=== PATIENT | female | born 1960 | race Caucasian/White ===

== ENCOUNTER 2021-04-24 19:43 | Inpatient (IN) | payer MEDICARE ==
[2021-04-24 20:21] LABS: BASOPHIL % 0.2 % (0.0-0.4); Basophil (Absolute #) 0.01 (0-0.4); Eosinophil % 1.7 % (0.00-5.0); Eosinophil (Absolute #) 0.08 (0-0.5); Hematocrit 40.2 % (35-47); Hemoglobin 13.2 gm/dl (12.0-16.0); Lymphocyte (Absolute #) 0.68 (1.0-4.6); Lymphocytes % 14.8 % (24.0-44.0); Mean Corpuscular Hemoglobin 31.2 pg (26-32); Mean Corpuscular Hgb Concent. 32.8 g/dl (32-36); Mean Platelet Volume 9.9 fl (7.5-11.0); Monocyte (Absolute #) 0.44 (0.0-1.3); Monocytes % 9.5 % (0.0-12.0); Neutrophil % 73.8 % (36.0-66.0); Platelet Count 137 K/mm3 (150-450); Red Blood Count 4.23 M/mm3 (4.1-5.4); Red Cell Distribution Width 14.4 % (11.5-14.0); White Blood Count 4.6 K/mm3 (4.0-10.5)
[2021-04-24 20:46] LABS: ALBUMIN 4.1 g/dL (3.5-5.0); ALKALINE PHOSPHATASE 66 U/L (38-126); BLOOD UREA NITROGEN 11 mg/dL (7-17); CHLORIDE 98 mmol/L (98-107); Calcium 8.6 mg/dL (8.4-10.2); Carbon Dioxide 26 mmol/L (22-30); Creatinine 1 0.52 mg/dL (0.52-1.04); EST GLOMERULAR FILTRATION RATE > 60.0 ML/MIN; Glucose 116 mg/dL (74-106); NT PRO BNP 273 pg/mL (0-900); Potassium 3.7 mmol/L (3.5-5.1); SGOT/AST 49 U/L (14-36); SGPT/ALT 14 U/L (0-35); Total Protein 7.2 g/dL (6.3-8.2)
[2021-04-24 21:06] LABS: SODIUM 131 mmol/L (137-145)
[2021-04-24 21:13] LABS: ANION GAP 10.7 MEQ/L (5-15)
[2021-04-24 21:35] LABS: INR 1.14 (0.8-3.0); PROTIME 13.4 SECONDS (9.4-12.5)
[2021-04-24 21:37] LABS: PTT 30.9 SECONDS (25.1-36.5)
--- NOTE | 2021-04-24 21:59 | ERPHSYRPT ---
- History of Present Illness Source: patient Exam Limitations: no limitations Patient Subjective Stated Complaint: I am short of breath since last night but worse today and I have a headache I can't get rid of. Triage Nursing Assessment: Pt c/o sob since 8pm last night and it has gotten slightly worse today. Pt also has a headache that she woke up with this morning and it hasn't let up since. Pt notices being more fatigued the last couple of days especially today. Pt's dad was positive for covid on Thursday and hospitalized and got released today. She lives with her dad. Pt has slight non prod cough. Lung camejo diminished throughout ant and post and tight. Physician History: 61 yo wf w cough/dyspnea/[place] wo fever/N/V/D. Pt's father has CV19, and pt has not been vaccinated. She smokes 1 ppd. Sats in mid-high 90's upon arrival. Timing/Duration: yesterday Cough Quality/Degree: dry cough Possible Cause: occasional episodes Modifying Factors: Improves With: coughing Associated Symptoms: cough, shortness of breath, No fever, No chills, No chest pain/soreness, No dizziness, No earache, No facial pain, No headache, No lightheadedness, No muscle aches, No nasal congestion, No nasal drainage, No sinus infection, No sore throat, No wheezing Allergies/Adverse Reactions: morphine Allergy (Severe, Verified 04/24/21 20:01) Vomiting Penicillins Allergy (Severe, Verified 04/24/21 20:01) convulsions Home Medications: Levothyroxine Sodium 25 Mcg [Synthroid 25 Mcg] 25 mcg PO DAILY 06/06/16 [History] Methadone HCl 5 mg PO UD 04/24/21 [History] Tizanidine HCl 2 mg PO TID 04/24/21 [History] Hx Tetanus, Diphtheria Vaccination/Date Given: Yes Hx Influenza Vaccination/Date Given: No Hx Pneumococcal Vaccination/Date Given: No Immunizations Up to Date: Yes Travel Risk - International Travel Have you traveled outside of the country in past 3 weeks: No - Coronavirus Screening Symptoms: Shortness of Breath, Headaches/Body Aches/Fatigue Close contact with a COVID-19 positive Pt in past 14-21 Days: Yes - Vaccine Status Have you recieved a Covid-19 vaccination: No - Review of Systems Constitutional: No Symptoms, Fatigue, Lethargy, Malaise Eyes: No Symptoms Ears, Nose, & Throat: No Symptoms Respiratory: Cough, Dyspnea Cardiac: No Symptoms Abdominal/Gastrointestinal: No Symptoms Genitourinary Symptoms: No Symptoms Musculoskeletal: No Symptoms Skin: No Symptoms Neurological: No Symptoms Psychological: No Symptoms Endocrine: No Symptoms Hematologic/Lymphatic: No Symptoms Immunological/Allergic: Pollen Allergy - Past Medical History Pertinent Past Medical History: Yes Neurological History: Migraines ENT History: No Pertinent History Cardiac History: No Pertinent History Respiratory History: COPD Endocrine Medical History: Hypothyroidism Musculoskeletal History: No Pertinent History GI Medical History: No Pertinent History History: No Pertinent History Psycho-Social History: No Pertinent History Female Reproductive Disorders: Breast Cancer Other Medical History: chronic hip problem since 3 years of age - chronic back - Past Surgical History Past Surgical History: Yes Neuro Surgical History: No Pertinent History Cardiac: No Pertinent History Respiratory: No Pertinent History Gastrointestinal: Hemorrhoidectomy Genitourinary: No Pertinent History Musculoskeletal: Joint Replacement, Other Female Surgical History: Hysterectomy, Lumpectomy Other Surgical History: 12 hip surgeries. spine surgery - Social History Smoking Status: Current every day smoker How long have you smoked: 30 yrs Exposure to second hand smoke: Yes Drug Use: none Patient Lives Alone: No Significant Family History: no pertinent family hx - Female History Hx Now: No - Nursing Vital Signs Nursing Vital Signs: Initial Vital Signs Temperature 98.3 F 04/24/21 19:44 Pulse Rate 95 H 04/24/21 19:44 Respiratory Rate 24 04/24/21 19:44 Blood Pressure 179/89 04/24/21 19:44 O2 Sat by Pulse Oximetry 90 L 04/24/21 19:44 Pain Scale Pain Intensity 0 Low sats - Physical Exam General Appearance: mild distress Eye Exam: PERRL/EOMI, eyes nml inspection Ears, Nose, Throat Exam: normal ENT inspection, TMs normal, pharynx normal, moist mucous membranes, dry mucous membranes Neck Exam: normal inspection, non-tender, No supple, No full range of motion, No meningismus, No mass, No Brudzinski, No Kernig's Respiratory Exam: respiratory distress (Mild), airway intact, wheezing (All lung) Cardiovascular Exam: regular rate/rhythm, normal heart sounds, normal peripheral pulses, No murmur Gastrointestinal/Abdomen Exam: soft, normal bowel sounds Back Exam: normal inspection, normal range of motion, No CVA tenderness Extremity Exam: normal inspection, normal range of motion Neurologic Exam: alert, 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, cooperative, saw superintendent II-XII nml as tested, normal mood/affect, nml cerebellar function, nml station & gait, sensation nml, No motor deficits, No sensory deficit Skin Exam: normal color Lymphatic Exam: adenopathy SpO2 Interpretation: borderline oxygenation SpO2: 93 O2 Delivery: Nasal Cannula - Course Nursing assessment & vital signs reviewed: Yes - Radiology Exams Chest X-ray Interpretation: Interpreted by me (COPD) Ordered Tests: Active Orders 24 hr Category Date Time Status Code Status Order ROUTINE Care 04/24/21 23:42 Completed EKG-ER Only STAT Care 04/24/21 20:05 Completed IV Care Q6H Care 04/24/21 23:42 Completed Intake and Output Q12H Care 04/24/21 23:42 Completed Isolation, Initiate & Maintain Q6H Care 04/24/21 23:[address] in Observation ROUTINE Care 04/24/21 23:42 Completed Vital Signs Q4H Care 04/24/21 23:42 Completed House Regular Diet Diet 04/24/21 Breakfast Completed CHEST 1 VIEW (PORTABLE) Stat Exams 04/24/21 20:06 Taken CBC W DIFF Stat Lab 04/24/21 20:05 Completed CMP Stat Lab 04/24/21 20:05 Completed Lactic Acid Stat Lab 04/24/21 20:14 Completed NT PRO BNP Stat Lab 04/24/21 20:05 Completed PROTIME WITH INR Stat Lab 04/24/21 20:05 Completed PTT Stat Lab 04/24/21 20:05 Completed TROPONIN Q3H Lab 04/24/21 20:15 Completed TROPONIN Q3H Lab 04/24/21 22:50 Completed Respiratory Therapy Consult ROUTINE RT 04/24/21 23:42 Completed Transfer Order Routine Transfer 04/24/21 Ordered Medication Summary Discontinued Medications Generic Name Dose Route Start Last Admin Trade Name Freq PRN Reason Stop Dose Admin Acetaminophen 650 mg 04/24/21 23:42 Tylenol 325 Mg PO 05/24/21 23:41 Q4H PRN PRN PAIN AND/OR FEVER Albuterol Sulfate 4 puff 04/25/21 07:00 Ventolin Common Canister IH 05/25/21 06:59 QIDRT CARINA Dexamethasone Sodium Phosphate 10 mg 04/24/21 23:41 04/24/21 23:47 Decadron 10mg Inj. IV 04/24/21 23:42 10 mg STAT ONE Administration Dexamethasone Sodium Phosphate Confirm 04/24/21 23:46 Decadron 10mg Inj. Administered 04/24/21 23:47 Dose 10 mg .ROUTE .STK-MED ONE Dexamethasone Sodium Phosphate 6 mg 04/25/21 10:00 Decadron 4 Mg Inj IV 05/25/21 09:59 DAILY [facility] Enoxaparin Sodium 40 mg 04/25/21 10:00 Enoxaparin Sodium SQ 05/25/21 09:59 DAILY [facility] Fentanyl 50 mcg 04/24/21 23:45 Duragesic 50mcg Patch TD 04/29/21 23:44 Q72H [facility] Remdesivir 100 mg/ Sodium 100 mls @ 100 mls/hr 04/25/21 23:48 Chloride IV 04/29/21 00:47 Q24H [facility] Remdesivir 200 mg/ Sodium 250 mls @ 125 mls/hr 04/24/21 23:48 Chloride IV 04/25/21 01:47 ONCE ONE Sodium Chloride 1,000 mls @ 100 mls/hr 04/24/21 23:45 Sodium Chloride 0.9% 1000 Ml IV 05/24/21 23:44 .Q10H [facility] Nicotine 21 mg 04/24/21 23:46 Nicoderm Cq 21 Mg TOP 04/24/21 23:47 STAT ONE Ondansetron HCl 4 mg 04/24/21 23:42 Zofran 4 Mg/2 Ml Vial IV 05/24/21 23:41 Q6H PRN PRN NAUSEA/VOMITING Pantoprazole Sodium 40 mg 04/25/21 10:00 Protonix 40 Mg Iv IV 05/25/21 09:59 Q24H10 [facility] Lab/Rad Data: Laboratory Result Diagrams 04/24/21 20:05 04/24/21 20:05 Laboratory Results 04/24/21 04/24/21 04/24/21 Range/Units 22:50 22:29 20:15 WBC (4.0-10.5) K/mm3 RBC (4.1-5.4) M/mm3 Hgb (12.0-16.0) gm/dl Hct (35-47) % MCV (78-100) fl MCH (26-32) pg MCHC (32-36) g/dl RDW (11.5-14.0) % Plt Count (150-450) K/mm3 MPV (7.5-11.0) fl Gran % (36.0-66.0) % Eos # (Auto) (0-0.5) Absolute Lymphs (auto) (1.0-4.6) Absolute Monos (auto) (0.0-1.3) Lymphocytes % (24.0-44.0) % Monocytes % (0.0-12.0) % Eosinophils % (0.00-5.0) % Basophils % (0.0-0.4) % Absolute Granulocytes (1.4-6.9) Basophils # (0-0.4) PT (9.4-12.5) SECONDS INR (0.8-3.0) APTT (25.1-36.5) SECONDS Sodium (137-145) mmol/L Potassium (3.5-5.1) mmol/L Chloride (98-107) mmol/L Carbon Dioxide (22-30) mmol/L Anion Gap (5-15) MEQ/L BUN (7-17) mg/dL Creatinine (0.52-1.04) mg/dL Estimated GFR ML/MIN Glucose (74-106) mg/dL Lactic Acid (0.4-2.0) Calcium (8.4-10.2) mg/dL Total Bilirubin (0.2-1.3) mg/dL AST (14-36) U/L ALT (0-35) U/L Alkaline Phosphatase (38-126) U/L Troponin I < 0.012 < 0.012 (0.000-0.034) ng/mL NT-Pro-B Natriuret Pep (0-900) pg/mL Serum Total Protein (6.3-8.2) g/dL Albumin (3.5-5.0) g/dL SARS-CoV-2 (PCR) POSITIVE A (NEGATIVE) Slides for Path Review 04/24/21 04/24/21 04/24/21 Range/Units 20:14 20:05 20:05 WBC (4.0-10.5) K/mm3 RBC (4.1-5.4) M/mm3 Hgb (12.0-16.0) gm/dl Hct (35-47) % MCV (78-100) fl MCH (26-32) pg MCHC (32-36) g/dl RDW (11.5-14.0) % Plt Count (150-450) K/mm3 MPV (7.5-11.0) fl Gran % (36.0-66.0) % Eos # (Auto) (0-0.5) Absolute Lymphs (auto) (1.0-4.6) Absolute Monos (auto) (0.0-1.3) Lymphocytes % (24.0-44.0) % Monocytes % (0.0-12.0) % Eosinophils % (0.00-5.0) % Basophils % (0.0-0.4) % Absolute Granulocytes (1.4-6.9) Basophils # (0-0.4) PT 13.4 H (9.4-12.5) SECONDS INR 1.14 (0.8-3.0) APTT 30.9 (25.1-36.5) SECONDS Sodium 131 L (137-145) mmol/L Potassium 3.7 (3.5-5.1) mmol/L Chloride 98 (98-107) mmol/L Carbon Dioxide 26 (22-30) mmol/L Anion Gap 10.7 (5-15) MEQ/L BUN 11 (7-17) mg/dL Creatinine 0.52 (0.52-1.04) mg/dL Estimated GFR > 60.0 ML/MIN Glucose 116 H (74-106) mg/dL Lactic Acid 1.5 (0.4-2.0) Calcium 8.6 (8.4-10.2) mg/dL Total Bilirubin 0.90 (0.2-1.3) mg/dL AST 49 H (14-36) U/L ALT 14 (0-35) U/L Alkaline Phosphatase 66 (38-126) U/L Troponin I (0.000-0.034) ng/mL NT-Pro-B Natriuret Pep 273 (0-900) pg/mL Serum Total Protein 7.2 (6.3-8.2) g/dL Albumin 4.1 (3.5-5.0) g/dL SARS-CoV-2 (PCR) (NEGATIVE) Slides for Path Review 04/24/21 Range/Units 20:05 WBC 4.6 (4.0-10.5) K/mm3 RBC 4.23 (4.1-5.4) M/mm3 Hgb 13.2 (12.0-16.0) gm/dl Hct 40.2 (35-47) % MCV 95.0 (78-100) fl MCH 31.2 (26-32) pg MCHC 32.8 (32-36) g/dl RDW 14.4 H (11.5-14.0) % Plt Count 137 L (150-450) K/mm3 MPV 9.9 (7.5-11.0) fl Gran % 73.8 H (36.0-66.0) % Eos # (Auto) 0.08 (0-0.5) Absolute Lymphs (auto) 0.68 L (1.0-4.6) Absolute Monos (auto) 0.44 (0.0-1.3) Lymphocytes % 14.8 L (24.0-44.0) % Monocytes % 9.5 (0.0-12.0) % Eosinophils % 1.7 (0.00-5.0) % Basophils % 0.2 (0.0-0.4) % Absolute Granulocytes 3.40 (1.4-6.9) Basophils # 0.01 (0-0.4) PT (9.4-12.5) SECONDS INR (0.8-3.0) APTT (25.1-36.5) SECONDS Sodium (137-145) mmol/L Potassium (3.5-5.1) mmol/L Chloride (98-107) mmol/L Carbon Dioxide (22-30) mmol/L Anion Gap (5-15) MEQ/L BUN (7-17) mg/dL Creatinine (0.52-1.04) mg/dL Estimated GFR ML/MIN Glucose (74-106) mg/dL Lactic Acid (0.4-2.0) Calcium (8.4-10.2) mg/dL Total Bilirubin (0.2-1.3) mg/dL AST (14-36) U/L ALT (0-35) U/L Alkaline Phosphatase (38-126) U/L Troponin I (0.000-0.034) ng/mL NT-Pro-B Natriuret Pep (0-900) pg/mL Serum Total Protein (6.3-8.2) g/dL Albumin (3.5-5.0) g/dL SARS-CoV-2 (PCR) (NEGATIVE) Slides for Path Review YES - Progress Progress Note: 04/24/21 23:52 10mg IV Decadron Admit per Dr. Medina Fentanyl patch ordered since pt taking 5mg po Methadone five times a day Nicotine patch ordered Counseled pt/family regarding: lab results, diagnosis, need for follow-up, rad results - Departure Departure Disposition: Observation Clinical Impression: COVID-19 Condition: Stable Critical Care Time: No Referrals: DISHA MACKEY JR [Primary Care Provider] -
[2021-04-24 23:28] LABS: Slide Review 1 YES
[2021-04-24] MEDS ORDERED: DECADRON 10MG INJ. IV ONE (23:41)
[2021-04-24] MEDS ORDERED: Zofran 4 MG/2 ML VIAL IV PRN (23:42)
[2021-04-24] MEDS ORDERED: TYLENOL 325 MG PO PRN (23:42)
[2021-04-24] MEDS ORDERED: Sodium Chloride 0.9% 1000 ML 1,000 ML IV SCH (23:45)
[2021-04-24] MEDS ORDERED: Duragesic 50MCG Patch TD SCH (23:45)
[2021-04-24] MEDS ORDERED: Nicoderm CQ 21 MG TOP ONE (23:46)
[2021-04-24] MEDS ORDERED: DECADRON 10MG INJ. ONE (23:46)
[2021-04-24] MEDS ORDERED: REMDESIVIR 200 MG in Sodium Chloride 0.9% 250 ML 250 ML IV ONE (23:48)
[2021-04-25] MEDS ORDERED: Zofran 4 MG/2 ML VIAL IV PRN (00:08)
[2021-04-25] MEDS ORDERED: TYLENOL 325 MG PO PRN (00:08)
[2021-04-25] MEDS ORDERED: Duragesic 50MCG Patch TD SCH (00:15)
[2021-04-25] MEDS: Sodium Chloride 0.9% 1000 ML 1,000 ML IV SCH ×2 (01:00→20:54)
[2021-04-25] MEDS ORDERED: OLUMIANT PO ONE (02:24)
[2021-04-25] MEDS ORDERED: Ativan 2 MG/1 ML VIAL IV PRN (02:45)
[2021-04-25] MEDS ORDERED: VENTOLIN COMMON CANISTER IH SCH (07:00)
[2021-04-25] MEDS: VENTOLIN COMMON CANISTER IH SCH ×4 (07:28→19:50)
[2021-04-25] MEDS ORDERED: DOLOPHINE 10MG Tablet PO SCH (09:00)
--- NOTE | 2021-04-25 09:07 | XRAY ---
Indication: Cough. Comparison: May 12, 2019. Portable chest again demonstrates COPD, tiny right upper lobe calcified granuloma, and bilateral nipple shadows. No focal infiltrate, consolidation, or large effusion. Heart and mediastinal structures within normal limits. Bony thorax intact again with mild osteopenia and degenerative changes. Impression: Nonacute chest with chronic features.
--- NOTE | 2021-04-25 09:31 | HP ---
CHIEF COMPLAINT: "I can't breathe". HISTORY OF PRESENT ILLNESS: The patient is a 61 y/o WF. 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 He did very well because he had 1 vaccine. However, she has gotten worse since 8 o'clock the night of admission. Can barely breathe. Came to the Emergency Room with headaches, fatigue, just feeling bad all over. No nausea. No vomiting. She does smoke a couple packs a day. She had a low-grade fever. On arrival, she as in the high 90's, but it progressively went down during the night. She has frequent dry cough. PAST MEDICAL HISTORY: Hysterectomy, hemorrhoidectomy, 5 surgeries to I believe the left hip, and she had a mastectomy for breast cancer years ago. Neurological history - Migraines. Cardiac history - None. Endocrine - Hypothyroidism. Musculoskeletal - Again, Legg-Perthes disease perhaps. 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 She also has chronic back pain probably related to the hip in some way. HOME MEDICATIONS: Methadone 5 mg 5 times a day for multiple surgeries to the hip from dysplasia of the hip, Synthroid 25 q d, and Tizanidine 2 mg tid. ALLERGIES: MORPHINE, PENICILLIN. 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 REVIEW OF SYSTEMS: CONSTITUTIONAL: Has fatigue, lethargy, malaise. HEENT: No sore throat. ABDOMEN: No nausea or vomiting. EXTREMITIES: Just achiness. PHYSICAL EXAMINATION: Temperature 98, pulse 80, respirations 20, BP 160/80, O2 90% on 4 liters. HEENT: Pupils equal and reactive to light. Slightly hoarse. CHEST: Crackles and rales bilateral. CVS: Regular rate. No murmurs or gallops. ABDOMEN: Soft. No tenderness or organomegaly. EXTREMITIES: Very thin. No cyanosis. No edema. LABORATORY WORK: Lactic acid 1.5, WBC 4.6, potassium 3.7. Chest x-ray shows bilateral pneumonia. IMPRESSION: 1. PATIENT HAS COVID-19 PNEUMONIA. 2. SHE HAS CONGENITAL DISORDER OF THE HIP AND BACK PAIN TREATED WITH METHADONE, NOT AN ADDICT, BUT USED FOR PAIN PURPOSES FOR SEVERAL YEARS. 3. HISTORY OF BREAST CANCER AND HYPOTHYROIDISM. PLAN: Patient will be treated with anticoagulation, Remdesivir, Decadron, and antibodies. Prognosis fair.
[2021-04-25] MEDS: DOLOPHINE 10MG Tablet PO SCH ×4 (09:40→22:27)
[2021-04-25] MEDS: SYNTHROID 25 MCG PO SCH (09:41)
[2021-04-25] MEDS: OLUMIANT PO SCH (09:41)
[2021-04-25] MEDS: PROTONIX 40 MG IV IV SCH (09:41)
[2021-04-25] MEDS: DECADRON 10MG INJ. IV SCH (09:41)
[2021-04-25] MEDS: Zanaflex 4 MG PO SCH ×3 (09:42→22:28)
[2021-04-25] MEDS: ENOXAPARIN SODIUM SQ SCH (09:42)
[2021-04-25] MEDS ORDERED: Decadron 4 MG INJ IV SCH (10:00)
[2021-04-25] MEDS ORDERED: TIZANIDINE HCL 2 MG PO SCH (10:00)
[2021-04-25] MEDS ORDERED: PROTONIX 40 MG IV IV SCH (10:00)
[2021-04-25] MEDS ORDERED: ENOXAPARIN SODIUM SQ SCH (10:00)
[2021-04-25] MEDS: Nicoderm CQ 21 MG TOP SCH (22:28)
[2021-04-25] MEDS: REMDESIVIR 100 MG in Sodium Chloride 0.9% 100 ML BAG 100 ML IV SCH (22:28)
[2021-04-25] MEDS ORDERED: REMDESIVIR 100 MG in Sodium Chloride 0.9% 100 ML BAG 100 ML IV SCH (23:48)
[2021-04-26] MEDS: DOLOPHINE 10MG Tablet PO SCH ×5 (01:18→21:27)
[2021-04-26] MEDS: VENTOLIN COMMON CANISTER IH SCH ×4 (07:40→19:23)
[2021-04-26] MEDS: OLUMIANT PO SCH (09:25)
[2021-04-26] MEDS: ENOXAPARIN SODIUM SQ SCH (09:25)
[2021-04-26] MEDS: DECADRON 10MG INJ. IV SCH (09:26)
[2021-04-26] MEDS: PROTONIX 40 MG IV IV SCH (09:27)
[2021-04-26] MEDS: SYNTHROID 25 MCG PO SCH (09:27)
[2021-04-26] MEDS: Zanaflex 4 MG PO SCH ×3 (09:28→21:29)
[2021-04-26] MEDS: Nicoderm CQ 21 MG TOP SCH (21:28)
[2021-04-26] MEDS: REMDESIVIR 100 MG in Sodium Chloride 0.9% 100 ML BAG 100 ML IV SCH (21:28)
[2021-04-27] MEDS: DOLOPHINE 10MG Tablet PO SCH ×6 (00:45→23:14)
[2021-04-27] MEDS: Sodium Chloride 0.9% 1000 ML 1,000 ML IV SCH ×2 (00:45→23:19)
[2021-04-27 06:52] LABS: Hematocrit 37.5 % (35-47); Mean Cell Volume 96.9 fl (78-100); Mean Platelet Volume 9.8 fl (7.5-11.0); Platelet Count 178 K/mm3 (150-450); Red Blood Count 3.87 M/mm3 (4.1-5.4); Red Cell Distribution Width 14.6 % (11.5-14.0); White Blood Count 7.1 K/mm3 (4.0-10.5)
[2021-04-27] MEDS: VENTOLIN COMMON CANISTER IH SCH ×4 (07:10→19:19)
[2021-04-27 08:14] LABS: ALBUMIN 2.8 g/dL (3.5-5.0); ALKALINE PHOSPHATASE 43 U/L (38-126); ANION GAP 8.1 MEQ/L (5-15); BLOOD UREA NITROGEN 18 mg/dL (7-17); CHLORIDE 105 mmol/L (98-107); Calcium 8.1 mg/dL (8.4-10.2); Carbon Dioxide 30 mmol/L (22-30); Creatinine 1 0.65 mg/dL (0.52-1.04); EST GLOMERULAR FILTRATION RATE > 60.0 ML/MIN; Glucose 91 mg/dL (74-106); Potassium 4.6 mmol/L (3.5-5.1); SGOT/AST 20 U/L (14-36); SGPT/ALT 10 U/L (0-35); SODIUM 138 mmol/L (137-145); Total Protein 5.5 g/dL (6.3-8.2)
[2021-04-27 08:50] LABS: Lymphocytes 18 % (24-44); Monocyte 10 % (0.0-12.0); Neutrophils 72 % (36.0-66.0); Platelet Estimate NORMAL (NORMAL); Total Cells Counted 100
[2021-04-27] MEDS: OLUMIANT PO SCH (09:00)
[2021-04-27] MEDS: DECADRON 10MG INJ. IV SCH (09:00)
[2021-04-27] MEDS: ENOXAPARIN SODIUM SQ SCH (09:00)
[2021-04-27] MEDS: SYNTHROID 25 MCG PO SCH (09:01)
[2021-04-27] MEDS: PROTONIX 40 MG IV IV SCH (09:01)
[2021-04-27] MEDS: Zanaflex 4 MG PO SCH ×3 (09:02→20:51)
[2021-04-27] MEDS: REMDESIVIR 100 MG in Sodium Chloride 0.9% 100 ML BAG 100 ML IV SCH (20:51)
[2021-04-27] MEDS: Nicoderm CQ 21 MG TOP SCH (20:51)
[2021-04-28 07:01] LABS: Hematocrit 36.5 % (35-47); Hemoglobin 11.8 gm/dl (12.0-16.0); Mean Cell Volume 96.3 fl (78-100); Mean Corpuscular Hemoglobin 31.1 pg (26-32); Mean Corpuscular Hgb Concent. 32.3 g/dl (32-36); Mean Platelet Volume 9.7 fl (7.5-11.0); Platelet Count 186 K/mm3 (150-450); Red Blood Count 3.79 M/mm3 (4.1-5.4); Red Cell Distribution Width 14.6 % (11.5-14.0); White Blood Count 7.4 K/mm3 (4.0-10.5)
[2021-04-28] MEDS: VENTOLIN COMMON CANISTER IH SCH ×2 (07:45→11:15)
[2021-04-28] MEDS: PROTONIX 40 MG IV IV SCH (09:05)
[2021-04-28] MEDS: OLUMIANT PO SCH (09:05)
[2021-04-28] MEDS: ENOXAPARIN SODIUM SQ SCH (09:06)
[2021-04-28] MEDS: SYNTHROID 25 MCG PO SCH (09:06)
[2021-04-28] MEDS: DECADRON 10MG INJ. IV SCH (09:06)
[2021-04-28] MEDS: Zanaflex 4 MG PO SCH (09:07)
[2021-04-28] MEDS: DOLOPHINE 10MG Tablet PO SCH ×2 (09:09→13:02)
[2021-04-28 11:02] VITALS: PULSE 70; O2SAT 96
[2021-04-28] MEDS: Sodium Chloride 0.9% 1000 ML 1,000 ML IV SCH (11:53)
[2021-04-28 12:35] VITALS: BP 133/78
[2021-04-28] MEDS ORDERED: REMDESIVIR 100 MG in Sodium Chloride 0.9% 100 ML BAG 100 ML IV SCH (13:00)
--- NOTE | 2021-04-29 10:07 | DS ---
ADMISSION DIAGNOSES: 1) Bilateral COVID pneumonia. 2) Chronic obstructive pulmonary disease. 3) Hypothyroidism. 4) Chronic hip pain due to congenital disorder of the hips. DISCHARGE DIAGNOSES: 1) BILATERAL COVID PNEUMONIA. 2) CHRONIC OBSTRUCTIVE PULMONARY DISEASE. 3) HYPOTHYROIDISM. 4) CHRONIC HIP PAIN DUE TO CONGENITAL DISORDER OF THE HIPS. DISCHARGE MEDICATIONS: The patient will require home oxygen at 2 liters. She will go back on her methadone 5 mg five times a day, Synthroid 25 mcg, tizanidine 2 mg t.i.d., prednisone 40 mg x5, 20 mg x5, 10 mg x5 for her chronic obstructive pulmonary disease. She has smoked one pack day since age 15. She has been trying hard to quit. Proventil inhaler. HOSPITAL COURSE: The patient was pretty stable. She came in and got about 4 liters of oxygen and then got extremely bad. Proventil seemed to help. She was treated with Remdesivir, Decadron and anticoagulated. She also has a history of breast cancer if I did not mention. VEAR oxygen running 90's on 2 liters. She talks, walks and eats. She has a sister living with her as well as their dad who originally had the COVID. He had a Moderna shot, one of them. Follow up with her doctor in two weeks. Not to take the vaccine until after June. PROGNOSIS: Good.
== END 2021-04-28 14:00 | disposition home or self-care (01) | DRG 177 ==
LOC: ED 19:43 → MED SURG 04-25 00:09 → OBSVTOIN 04-25 09:13
PROVIDERS: ADMIT Family Medicine; ATTEND Family Medicine
DX: U07.1 COVID-19 (principal); J12.82 Pneumonia due to coronavirus disease 2019; R51.9 Headache, unspecified; J44.9 Chronic obstructive pulmonary disease, unspecified; E03.9 Hypothyroidism, unspecified; M54.9 Dorsalgia, unspecified; M25.551 Pain in right hip; M25.552 Pain in left hip; R06.02 Shortness of breath; Z79.899 Other long term (current) drug therapy; F17.200 Nicotine dependence, unspecified, uncomplicated; Z85.3 Personal history of malignant neoplasm of breast; Z20.822 Contact with and (suspected) exposure to COVID-19
CPT/HCPCS: 36415; 71045; 80053; 83605; 83880; 84484; 85025; 85027; 85379; 85610; 85730; 93005; 93268; 94640; 94667; 94668; 94762; 96374; 99285; U0003; J1100; J1650; A9270-GY

== ENCOUNTER 2021-09-07 18:17 | Emergency (ER) | payer MEDICARE ==
[2021-09-07] MEDS ORDERED: Sodium Chloride 0.9% 1000 ML 1,000 ML IV STA (18:49)
[2021-09-07] MEDS ORDERED: Sodium Chloride 0.9% 1000 ML 1,000 ML ONE (19:02)
--- NOTE | 2021-09-07 19:03 | ERPHSYRPT ---
- History of Present Illness Time Seen by Provider: 09/07/21 18:20 Source: patient, EMS Exam Limitations: no limitations Patient Subjective Stated Complaint: EMS reports patient had new onset seizure x5 min. States patients sister reports patient turned blue during seizure, but when EMS arrived patient was postictal and alert. Triage Nursing Assessment: Patient is aware of where she is, and her name, but does not know what time or day it is. SHe states she does not know what happened. Patient is alert and interacting appropriately. Strength is normal in upper and lower and pupils are round and reactive to light. Physician History: 61 years old female with a history of chronic back pain, hypothyroidism presented in the ER with chief complaint of seizure-like activity sudden onset lasting for 5 minutes with generalized shaking episode witnessed by family and she turned blue during that episode. On EMS arrival patient was awake and alert but confused. This happened prior to arrival. Patient is awake alert and oriented on presentation, denies any headache, dizziness, numbness tingling or focal weakness. Denies any chest pain palpitations or shortness of breath. Denies any drug use. No fever or chills reported. No previous history of stroke or seizure. Timing/Duration: today, resolved prior to arrival, improved Severity: moderate Character of Deficits: none Deficits: no difficulties Baseline/Normal Cognition: alert 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 Current Cognition: alert 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 Baseline Gait: uses cane Associated Symptoms: seizures Allergies/Adverse Reactions: morphine Allergy (Severe, Verified 09/07/21 18:28) Vomiting Penicillins Allergy (Severe, Verified 09/07/21 18:28) convulsions Home Medications: Levothyroxine Sodium 25 Mcg [Synthroid 25 Mcg] 25 mcg PO DAILY 06/06/16 [History] Methadone HCl 5 mg PO UD 04/24/21 [History] Tizanidine HCl 2 mg PO TID 04/24/21 [History] Hx Tetanus, Diphtheria Vaccination/Date Given: Yes Hx Influenza Vaccination/Date Given: No Hx Pneumococcal Vaccination/Date Given: No Travel Risk - International Travel Have you traveled outside of the country in past 3 weeks: No - Coronavirus Screening Are you exhibiting any of the following symptoms?: No - Vaccine Status Have you recieved a Covid-19 vaccination: No - Review of Systems Constitutional: No Symptoms Eyes: No Symptoms Ears, Nose, & Throat: No Symptoms Respiratory: No Symptoms Cardiac: No Symptoms Abdominal/Gastrointestinal: No Symptoms Genitourinary Symptoms: No Symptoms Musculoskeletal: No Symptoms Skin: No Symptoms Neurological: Seizure Psychological: No Symptoms Endocrine: No Symptoms Hematologic/Lymphatic: No Symptoms Immunological/Allergic: No Symptoms - Past Medical History Pertinent Past Medical History: Yes Neurological History: Migraines ENT History: No Pertinent History Cardiac History: No Pertinent History Respiratory History: COPD Endocrine Medical History: Hypothyroidism Musculoskeletal History: No Pertinent History GI Medical History: No Pertinent History History: No Pertinent History Psycho-Social History: No Pertinent History Female Reproductive Disorders: Breast Cancer Other Medical History: chronic hip problem since 3 years of age - chronic back - Past Surgical History Past Surgical History: Yes Neuro Surgical History: No Pertinent History Cardiac: No Pertinent History Respiratory: No Pertinent History Gastrointestinal: Hemorrhoidectomy Genitourinary: No Pertinent History Musculoskeletal: Joint Replacement, Other Female Surgical History: Hysterectomy, Lumpectomy Other Surgical History: 12 hip surgeries. spine surgery - Social History Smoking Status: Heavy tobacco smoker How long have you smoked: 30 yrs Exposure to second hand smoke: Yes Drug Use: none Patient Lives Alone: No Significant Family History: no pertinent family hx - Female History Hx Now: No - Nursing Vital Signs Nursing Vital Signs: Initial Vital Signs Pulse Rate 91 H 09/07/21 18:19 Respiratory Rate 18 09/07/21 18:19 Blood Pressure 143/107 09/07/21 18:19 O2 Sat by Pulse Oximetry 95 09/07/21 18:19 Pain Scale Pain Intensity 0 - Luh Coma Scale Best Eye Response ([place]): (4) open spontaneously Best Verbal Response ([place]): (5) oriented Best Motor Response ([place]uh): (6) obeys commands [place] Total: 15 - Physical Exam General Appearance: no apparent distress, alert, anxiety Eye Exam: bilateral eye: normal inspection, PERRL, EOMI Ears, Nose, Throat Exam: normal ENT inspection, TMs normal, pharynx normal, moist mucous membranes Neck Exam: normal inspection, non-tender, supple, full range of motion, No meningismus Respiratory: normal breath sounds, lungs clear Cardiovascular: regular rate/rhythm, normal heart sounds Gastrointestinal: soft, normal bowel sounds, No tenderness Back Exam: normal inspection, normal range of motion Extremity Exam: normal inspection, normal range of motion, pelvis stable Mental Status: alert, 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, 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 Exam: normal hearing, normal speech, PERRL, No facial asymmetry Coordination/Gait: normal finger to nose, normal cerebellar function Motor/Sensory: no motor deficit, no sensory deficit, no pronator drift, negative Babinski's sign DTR: bicep (R): 2+, bicep (L): 2+, knee (R): 2+, knee (L): 2+ Skin Exam: normal color SpO2 Interpretation: normal SpO2: 95 O2 Delivery: Room Air - Course EKG Interpreted by Me: RATE ([id number]), Sinus Rhythm, NORMAL AXIS, NORMAL INTERVALS, Non-specific ST Changes Ordered Tests: Active Orders 24 hr Category Date Time Status Head Nurse STAT Care 09/07/21 18:50 Active EKG-ER Only STAT Care 09/07/21 18:49 Active IV Insertion STAT Care 09/07/21 18:49 Active CHEST 1 VIEW (PORTABLE) Stat Exams 09/07/21 18:49 Completed HEAD WITHOUT CONTRAST [CT] Stat Exams 09/07/21 18:50 Completed BLOOD CULTURE Stat Lab 09/07/21 19:56 Received CBC W DIFF Stat Lab 09/07/21 19:00 Completed CMP Stat Lab 09/07/21 19:00 Completed CULTURE,URINE Stat Lab 09/07/21 19:56 Received Lactic Acid Stat Lab 09/07/21 18:58 Completed Lactic Acid Stat Lab 09/07/21 21:12 Completed MAGNESIUM Stat Lab 09/07/21 19:00 Completed TROPONIN Q3H Lab 09/07/21 19:00 Completed TROPONIN Q3H Lab 09/07/21 19:00 Ordered TROPONIN Q3H Lab 09/08/21 01:00 Ordered TROPONIN Q3H Lab 09/08/21 04:00 Ordered TROPONIN Q3H Lab 09/08/21 07:00 Ordered UA W/RFX UR CULTURE Stat Lab 09/07/21 19:56 Completed Urine Triage Profile Stat Lab 09/07/21 19:56 Completed Medication Summary Discontinued Medications Generic Name Dose Route Start Last Admin Trade Name Freq PRN Reason Stop Dose Admin Sodium Chloride 1,000 mls @ 999 mls/hr 09/07/21 18:49 09/07/21 20:19 Sodium Chloride 0.9% 1000 Ml IV 09/07/21 19:49 Infused .Q1H1M STA Infusion Sodium Chloride Confirm 09/07/21 19:02 Sodium Chloride 0.9% 1000 Ml Administered 09/07/21 19:03 Dose 1,000 mls @ ud .ROUTE .STK-MED ONE Nitrofurantoin Macrocrystals 100 mg 09/07/21 21:27 09/07/21 21:33 Nitrofurantoin Macro 100 Mg Capsule PO 09/07/21 21:28 100 mg STAT ONE Administration Nitrofurantoin Macrocrystals Confirm 09/07/21 21:33 Nitrofurantoin Macro 100 Mg Capsule Administered 09/07/21 21:34 Dose 100 mg .ROUTE .STK-MED ONE Lab/Rad Data: Laboratory Result Diagrams 09/07/21 19:00 09/07/21 19:00 Laboratory Results 09/07/21 09/07/21 09/07/21 Range/Units 21:12 19:56 19:56 WBC (4.0-10.5) K/mm3 RBC (4.1-5.4) M/mm3 Hgb (12.0-16.0) gm/dl Hct (35-47) % MCV (78-100) fl MCH (26-32) pg MCHC (32-36) g/dl RDW (11.5-14.0) % Plt Count (150-450) K/mm3 MPV (7.5-11.0) fl Gran % (36.0-66.0) % Eos # (Auto) (0-0.5) Absolute Lymphs (auto) (1.0-4.6) Absolute Monos (auto) (0.0-1.3) Lymphocytes % (24.0-44.0) % Monocytes % (0.0-12.0) % Eosinophils % (0.00-5.0) % Basophils % (0.0-0.4) % Absolute Granulocytes (1.4-6.9) Basophils # (0-0.4) Sodium (137-145) mmol/L Potassium (3.5-5.1) mmol/L Chloride (98-107) mmol/L Carbon Dioxide (22-30) mmol/L Anion Gap (5-15) MEQ/L BUN (7-17) mg/dL Creatinine (0.52-1.04) mg/dL Estimated GFR ML/MIN Glucose (74-106) mg/dL Lactic Acid 1.0 (0.4-2.0) Calcium (8.4-10.2) mg/dL Magnesium (1.6-2.3) mg/dL Total Bilirubin (0.2-1.3) mg/dL AST (14-36) U/L ALT (0-35) U/L Alkaline Phosphatase (38-126) U/L Troponin I (0.000-0.034) ng/mL Serum Total Protein (6.3-8.2) g/dL Albumin (3.5-5.0) g/dL Urine Color YELLOW (YELLOW) Urine Appearance SLIGHTLY CLOUDY (CLEAR) Urine pH 5.0 (5-6) Ur Specific [place] 1.014 (1.005-1.025) Urine Protein NEGATIVE (Negative) Urine Ketones NEGATIVE (NEGATIVE) Urine Blood SMALL (0-5) Abimael/ul Urine Nitrite NEGATIVE (NEGATIVE) Urine Bilirubin NEGATIVE (NEGATIVE) Urine Urobilinogen NEGATIVE (0-1) mg/dL Ur Leukocyte Esterase LARGE (NEGATIVE) Urine WBC (Auto) 11-15 (0-5) /HPF Urine RBC (Auto) 6-10 (0-2) /HPF U Epithel Cells (Auto) RARE (FEW) /HPF Urine Bacteria (Auto) FEW (NEGATIVE) /HPF Urine Mucus (Auto) SLIGHT (NEGATIVE) /HPF Urine Culture Reflexed YES (NO) Urine Glucose NEGATIVE (NEGATIVE) mg/dL Urine Opiates Level NEGATIVE (NEGATIVE) Ur Methadone POSITIVE (NEGATIVE) Urine Barbiturates NEGATIVE (NEGATIVE) Ur Phencyclidine (PCP) NEGATIVE (NEGATIVE) Urine Amphetamine NEGATIVE (NEGATIVE) U Benzodiazepine Level NEGATIVE (NEGATIVE) Urine Cocaine NEGATIVE (NEGATIVE) Urine Marijuana (THC) NEGATIVE (NEGATIVE) 09/07/21 09/07/21 09/07/21 Range/Units 19:00 19:00 19:00 WBC 8.2 (4.0-10.5) K/mm3 RBC 4.77 (4.1-5.4) M/mm3 Hgb 14.8 (12.0-16.0) gm/dl Hct 46.8 (35-47) % MCV 98.1 (78-100) fl MCH 31.0 (26-32) pg MCHC 31.6 L (32-36) g/dl RDW 14.1 H (11.5-14.0) % Plt Count 320 (150-450) K/mm3 MPV 9.6 (7.5-11.0) fl Gran % 30.3 L (36.0-66.0) % Eos # (Auto) 0.21 (0-0.5) Absolute Lymphs (auto) 4.72 H (1.0-4.6) Absolute Monos (auto) 0.74 (0.0-1.3) Lymphocytes % 57.5 H (24.0-44.0) % Monocytes % 9.0 (0.0-12.0) % Eosinophils % 2.6 (0.00-5.0) % Basophils % 0.6 (0.0-0.4) % Absolute Granulocytes 2.49 (1.4-6.9) Basophils # 0.05 (0-0.4) Sodium 140 (137-145) mmol/L Potassium 3.8 (3.5-5.1) mmol/L Chloride 99 (98-107) mmol/L Carbon Dioxide 17 L (22-30) mmol/L Anion Gap 28.2 H (5-15) MEQ/L BUN 15 (7-17) mg/dL Creatinine 0.90 (0.52-1.04) mg/dL Estimated GFR > 60.0 ML/MIN Glucose 101 (74-106) mg/dL Lactic Acid (0.4-2.0) Calcium 9.1 (8.4-10.2) mg/dL Magnesium 2.6 H (1.6-2.3) mg/dL Total Bilirubin 1.10 (0.2-1.3) mg/dL AST 32 (14-36) U/L ALT 15 (0-35) U/L Alkaline Phosphatase 109 (38-126) U/L Troponin I < 0.012 (0.000-0.034) ng/mL Serum Total Protein 8.5 H (6.3-8.2) g/dL Albumin 5.2 H (3.5-5.0) g/dL Urine Color (YELLOW) Urine Appearance (CLEAR) Urine pH (5-6) Ur Specific [place] (1.005-1.025) Urine Protein (Negative) Urine Ketones (NEGATIVE) Urine Blood (0-5) Abimael/ul Urine Nitrite (NEGATIVE) Urine Bilirubin (NEGATIVE) Urine Urobilinogen (0-1) mg/dL Ur Leukocyte Esterase (NEGATIVE) Urine WBC (Auto) (0-5) /HPF Urine RBC (Auto) (0-2) /HPF U Epithel Cells (Auto) (FEW) /HPF Urine Bacteria (Auto) (NEGATIVE) /HPF Urine Mucus (Auto) (NEGATIVE) /HPF Urine Culture Reflexed (NO) Urine Glucose (NEGATIVE) mg/dL Urine Opiates Level (NEGATIVE) Ur Methadone (NEGATIVE) Urine Barbiturates (NEGATIVE) Ur Phencyclidine (PCP) (NEGATIVE) Urine Amphetamine (NEGATIVE) U Benzodiazepine Level (NEGATIVE) Urine Cocaine (NEGATIVE) Urine Marijuana (THC) (NEGATIVE) 09/07/21 Range/Units 18:58 WBC (4.0-10.5) K/mm3 RBC (4.1-5.4) M/mm3 Hgb (12.0-16.0) gm/dl Hct (35-47) % MCV (78-100) fl MCH (26-32) pg MCHC (32-36) g/dl RDW (11.5-14.0) % Plt Count (150-450) K/mm3 MPV (7.5-11.0) fl Gran % (36.0-66.0) % Eos # (Auto) (0-0.5) Absolute Lymphs (auto) (1.0-4.6) Absolute Monos (auto) (0.0-1.3) Lymphocytes % (24.0-44.0) % Monocytes % (0.0-12.0) % Eosinophils % (0.00-5.0) % Basophils % (0.0-0.4) % Absolute Granulocytes (1.4-6.9) Basophils # (0-0.4) Sodium (137-145) mmol/L Potassium (3.5-5.1) mmol/L Chloride (98-107) mmol/L Carbon Dioxide (22-30) mmol/L Anion Gap (5-15) MEQ/L BUN (7-17) mg/dL Creatinine (0.52-1.04) mg/dL Estimated GFR ML/MIN Glucose (74-106) mg/dL Lactic Acid 13.0 H (0.4-2.0) Calcium (8.4-10.2) mg/dL Magnesium (1.6-2.3) mg/dL Total Bilirubin (0.2-1.3) mg/dL AST (14-36) U/L ALT (0-35) U/L Alkaline Phosphatase (38-126) U/L Troponin I (0.000-0.034) ng/mL Serum Total Protein (6.3-8.2) g/dL Albumin (3.5-5.0) g/dL Urine Color (YELLOW) Urine Appearance (CLEAR) Urine pH (5-6) Ur Specific [place] (1.005-1.025) Urine Protein (Negative) Urine Ketones (NEGATIVE) Urine Blood (0-5) Abimael/ul Urine Nitrite (NEGATIVE) Urine Bilirubin (NEGATIVE) Urine Urobilinogen (0-1) mg/dL Ur Leukocyte Esterase (NEGATIVE) Urine WBC (Auto) (0-5) /HPF Urine RBC (Auto) (0-2) /HPF U Epithel Cells (Auto) (FEW) /HPF Urine Bacteria (Auto) (NEGATIVE) /HPF Urine Mucus (Auto) (NEGATIVE) /HPF Urine Culture Reflexed (NO) Urine Glucose (NEGATIVE) mg/dL Urine Opiates Level (NEGATIVE) Ur Methadone (NEGATIVE) Urine Barbiturates (NEGATIVE) Ur Phencyclidine (PCP) (NEGATIVE) Urine Amphetamine (NEGATIVE) U Benzodiazepine Level (NEGATIVE) Urine Cocaine (NEGATIVE) Urine Marijuana (THC) (NEGATIVE) - Progress Progress: improved, re-examined Progress Note: 09/07/21 21:57 61-year-old is evaluated for seizure episode witnessed by family earlier. Patient is back to her baseline and has nonfocal neuro exam. CT head is obtained which is negative. Elevated lactate/gap/protein consistent with seizure. Neurology consult is obtained who has seen patient, since she is back to her baseline, has first seizure, did not recommend antiepileptics. Recommended MRI which is not available here over the weekend. He is okay with discharging patient home and outpatient follow-up. I have given option of transfer to facility with MRI services but patient does not want to go and wants to go home and will do outpatient follow-up. Discussed signs symptoms of worsening needing return to ER which she seems understanding. She does have UTI and started on nitrofurantoin. Discussed with : Other Counseled pt/family regarding: lab results, diagnosis, need for follow-up, rad results, smoking cessation - Departure Departure Disposition: Home Clinical Impression: New onset seizure, Acute UTI Condition: Stable Critical Care Time: No Referrals: DISHA MACKEY JR [Primary Care Provider] - Follow up/PCP as directed (2 days for reevaluation) COLLEEN FELICIANO [NON-STAFF PHY W/O PRIVILEGES] - Follow up/PCP as directed (Call in 2 days for reevaluation) Instructions: Seizures, Adult (DC) Additional Instructions: Drink plenty of fluids. Stay with responsible person and return to ER if again having seizures. Do not drive are being around water alone, operating heavy machinery until cleared by neurologist. Prescriptions: Nitrofurantoin Macro 100 mg [Macrobid 100MG Capsule] 100 mg PO BID 7 Days #13 cap
[2021-09-07 19:18] LABS: Absolute Neutrophil Ct (ANC) 2.49 (1.4-6.9); Basophil (Absolute #) 0.05 (0-0.4); Eosinophil % 2.6 % (0.00-5.0); Eosinophil (Absolute #) 0.21 (0-0.5); Hematocrit 46.8 % (35-47); Hemoglobin 14.8 gm/dl (12.0-16.0); Lymphocyte (Absolute #) 4.72 (1.0-4.6); Lymphocytes % 57.5 % (24.0-44.0); Mean Cell Volume 98.1 fl (78-100); Mean Corpuscular Hgb Concent. 31.6 g/dl (32-36); Mean Platelet Volume 9.6 fl (7.5-11.0); Monocyte (Absolute #) 0.74 (0.0-1.3); Neutrophil % 30.3 % (36.0-66.0); Platelet Count 320 K/mm3 (150-450); Red Blood Count 4.77 M/mm3 (4.1-5.4); Red Cell Distribution Width 14.1 % (11.5-14.0); White Blood Count 8.2 K/mm3 (4.0-10.5)
[2021-09-07 19:39] LABS: ALBUMIN 5.2 g/dL (3.5-5.0); ALKALINE PHOSPHATASE 109 U/L (38-126); ANION GAP 28.2 MEQ/L (5-15); BLOOD UREA NITROGEN 15 mg/dL (7-17); CHLORIDE 99 mmol/L (98-107); Calcium 9.1 mg/dL (8.4-10.2); Carbon Dioxide 17 mmol/L (22-30); EST GLOMERULAR FILTRATION RATE > 60.0 ML/MIN; Glucose 101 mg/dL (74-106); MAGNESIUM 2.6 mg/dL (1.6-2.3); Potassium 3.8 mmol/L (3.5-5.1); SGOT/AST 32 U/L (14-36); SGPT/ALT 15 U/L (0-35); SODIUM 140 mmol/L (137-145); Total Protein 8.5 g/dL (6.3-8.2)
--- NOTE | 2021-09-07 19:48 | XRAY ---
Indication: Seizure. Comparison: April 24, 2021. Portable chest remains clear again with COPD and tiny right lung calcified granuloma. Heart not enlarged. Bony thorax intact. No new/acute findings.
--- NOTE | 2021-09-07 19:48 | XRAY ---
Indication: Seizure. Multiple contiguous axial images obtained through the head without contrast. Comparison: None Normal appearing brain parenchyma, ventricles, and bony calvarium for patient's age. Mucosal thickening floor right maxillary sinus. Remaining visualized paranasal sinuses and mastoid air cells are clear. Impression: Normal CT head without contrast exam. Incidental right maxillary sinus disease. Comment: Preliminary interpretation made by [facility]. No critical discrepancy.
[2021-09-07 20:34] LABS: Amphetamine,Urine NEGATIVE (NEGATIVE); Barbiturate,Urine NEGATIVE (NEGATIVE); Benzodiazepine,Urine NEGATIVE (NEGATIVE); Cocaine,Urine NEGATIVE (NEGATIVE); Methadone,Urine POSITIVE (NEGATIVE); Opiate,Urine NEGATIVE (NEGATIVE); PCP,Urine NEGATIVE (NEGATIVE); THC,Urine NEGATIVE (NEGATIVE)
[2021-09-07 20:45] LABS: Appearance SLIGHTLY CLOUDY (CLEAR); Bacteria FEW /HPF (NEGATIVE); Bilirubin NEGATIVE (NEGATIVE); Blood SMALL Ery/ul (0-5); Epithelial Cells RARE /HPF (FEW); Glucose NEGATIVE (NEGATIVE); Ketones NEGATIVE (NEGATIVE); Leukocyte Esterase LARGE (NEGATIVE); Mucus SLIGHT /HPF (NEGATIVE); Nitrite NEGATIVE (NEGATIVE); Protein,Urine Dip NEGATIVE (Negative); Specific Gravity 1.014 (1.005-1.025); Urobilinogen NEGATIVE mg/dL (0-1)
[2021-09-07] MEDS ORDERED: Macrobid 100MG Capsule PO ONE (21:27)
[2021-09-07] MEDS ORDERED: Macrobid 100MG Capsule ONE (21:33)
[2021-09-07 22:03] VITALS: O2SAT 95
[2021-09-07 22:06] VITALS: BP 131/74; PULSE 79
== END 2021-09-07 22:20 | disposition home or self-care (01) ==
LOC: ED 18:17
DX: R56.9 Unspecified convulsions (principal); N39.0 Urinary tract infection, site not specified; J44.9 Chronic obstructive pulmonary disease, unspecified; Z79.899 Other long term (current) drug therapy; Z72.0 Tobacco use
CPT/HCPCS: 36000; 36415; 70450; 71045; 80053; 80307; 81001; 83605; 83735; 84484; 85025; 87040; 87086; 93005; 93041; 96360; 99284; A9270-GY

== ENCOUNTER 2023-07-23 12:29 | Emergency (ER) | payer MEDICARE ==
[2023-07-23] MEDS ORDERED: DUONEB 0.5-3 MG/3 ml Neb IH ONE ×2 (12:33→12:37)
--- NOTE | 2023-07-23 12:34 | ERPHSYRPT ---
- History of Present Illness Time Seen by Provider: 07/23/23 12:34 Source: patient Exam Limitations: clinical condition Physician History: This is a 63-year-old white female patient who is a daily smoker of cigarettes and presents with 2-day history of cough and shortness of breath. Patient was seen at [facility] yesterday and given injection of, then a prescription of steroids. She does not feel that her symptoms have improved much. Patient has a history of hypothyroidism, migraine headaches and COPD. She is not having chest pain. She has not had a fever. She has no abdominal pain. She has not had nausea vomiting or diarrhea symptoms. Timing/Duration: day(s) (2), other Activities at Onset: none (Unchanged) Severity of Dyspnea-Max: mild Severity of Dyspnea-Current: mild (To moderate to moderate) Possible Cause: occasional episodes Modifying Factors: Improves With: albuterol nebulizer, coughing Associated Symptoms: cough, wheezing, No chest pain/discomfort Allergies/Adverse Reactions: morphine Allergy (Severe, Verified 07/23/23 12:43) Vomiting Penicillins Allergy (Severe, Verified 07/23/23 12:43) convulsions Home Medications: Levothyroxine Sodium 25 Mcg [Synthroid 25 Mcg] 25 mcg PO DAILY 06/06/16 [History] Methadone HCl 5 mg PO UD 04/24/21 [History] Tizanidine HCl 2 mg PO TID 04/24/21 [History] Azithromycin [Azithromycin 250 mg Pack] 250 mg PO BID 07/23/23 [History] Hx Tetanus, Diphtheria Vaccination/Date Given: Yes Hx Influenza Vaccination/Date Given: No Hx Pneumococcal Vaccination/Date Given: No Travel Risk - International Travel Have you traveled outside of the country in past 3 weeks: No - Coronavirus Screening Are you exhibiting any of the following symptoms?: Yes Symptoms: Cough: New Onset, Shortness of Breath Close contact with a COVID-19 positive Pt in past 14-21 Days: No - Vaccine Status Have you recieved a Covid-19 vaccination: No - Review of Systems Constitutional: No Symptoms Eyes: No Symptoms Ears, Nose, & Throat: No Symptoms Respiratory: Cough, Dyspnea Cardiac: No Symptoms Abdominal/Gastrointestinal: No Symptoms Genitourinary Symptoms: No Symptoms Musculoskeletal: No Symptoms Skin: No Symptoms Neurological: No Symptoms Psychological: No Symptoms Endocrine: No Symptoms Hematologic/Lymphatic: No Symptoms Immunological/Allergic: No Symptoms All Other Systems: Reviewed and Negative - Past Medical History Pertinent Past Medical History: Yes Neurological History: Migraines ENT History: No Pertinent History Cardiac History: No Pertinent History Respiratory History: COPD Endocrine Medical History: Hypothyroidism Musculoskeletal History: No Pertinent History GI Medical History: No Pertinent History History: No Pertinent History Psycho-Social History: No Pertinent History Female Reproductive Disorders: Breast Cancer Other Medical History: chronic hip problem since 3 years of age - chronic back - Past Surgical History Past Surgical History: Yes Neuro Surgical History: No Pertinent History Cardiac: No Pertinent History Respiratory: No Pertinent History Gastrointestinal: Hemorrhoidectomy Genitourinary: No Pertinent History Musculoskeletal: Joint Replacement, Other Female Surgical History: Hysterectomy, Lumpectomy Other Surgical History: 12 hip surgeries. spine surgery - Social History Smoking Status: Heavy tobacco smoker How long have you smoked: 30 yrs Exposure to second hand smoke: Yes Drug Use: none Patient Lives Alone: No Significant Family History: no pertinent family hx - Nursing Vital Signs Nursing Vital Signs: Initial Vital Signs Temperature 96.8 F 07/23/23 12:30 Pulse Rate 95 H 07/23/23 12:30 Respiratory Rate 24 07/23/23 12:30 Blood Pressure 159/84 07/23/23 12:30 O2 Sat by Pulse Oximetry 75 L 07/23/23 12:30 Pain Scale Pain Intensity 0 - Physical Exam General Appearance: mild distress, alert, anxiety, thin Eye Exam: PERRL/EOMI, eyes nml inspection Ears, Nose, Throat Exam: hearing grossly normal, normal ENT inspection, normal pharynx Neck Exam: normal inspection, non-tender, supple, full range of motion Respiratory Exam: respiratory distress, airway intact, wheezing (Bilateral expiratory), No chest tenderness (Mild), No accessory muscle use Cardiovascular/Chest Exam: normal heart sounds, regular rate/rhythm, normal peripheral pulses Abdominal/Gastrointestinal Exam: soft, normal bowel sounds, No tenderness Rectal Exam: not done Extremity Exam: non-tender, normal range of motion, normal inspection, normal capillary refill, no calf tenderness, no pedal edema, pelvis stable Neurologic Exam: alert, 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, cooperative, 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 as tested, normal mood/affect, nml cerebellar function, nml station & gait, sensation nml Skin Exam: normal color, warm, dry Lymphatic Exam: No adenopathy SpO2 Interpretation: hypoxic O2 Delivery: Room Air - Course Nursing assessment & vital signs reviewed: Yes Ordered Tests: Active Orders 24 hr Category Date Time Status EKG-ER Only STAT Care 07/23/23 13:27 Active IV Insertion STAT Care 07/23/23 13:27 Active Pulse Oximetry (ED) STAT Care 07/23/23 13:27 Active CHEST 1 VIEW (PORTABLE) Stat Exams 07/23/23 13:27 Completed BLOOD CULTURE Stat Lab 07/23/23 14:03 Received CBC W DIFF Stat Lab 07/23/23 13:00 Completed CMP Stat Lab 07/23/23 13:00 Completed D-DIMER QUANTITATIVE Stat Lab 07/23/23 13:55 Completed NT PRO BNPII Stat Lab 07/23/23 13:00 Completed PROTIME WITH INR Stat Lab 07/23/23 13:00 Completed TROPONIN Q4H Lab 07/23/23 15:38 Completed TROPONIN Q4H Lab 07/23/23 19:30 Ordered TROPONIN Q4H Lab 07/23/23 23:30 Ordered Respiratory Therapy Assessment DAILY RT 07/23/23 12:44 Active Medication Summary Discontinued Medications Generic Name Dose Route Start Last Admin Trade Name Freq PRN Reason Stop Dose Admin Albuterol/Ipratropium 3 ml 07/23/23 12:33 07/23/23 12:39 Ipratropium/Albuterol Sulfate 3 Ml Ampul.Neb IH 07/23/23 12:34 3 ml STAT ONE Administration Albuterol/Ipratropium Confirm 07/23/23 12:37 Ipratropium/Albuterol Sulfate 3 Ml Ampul.Neb Administered 07/23/23 12:38 Dose 3 ml IH .STK-MED ONE Methylprednisolone Sodium 0 mg 07/23/23 13:27 07/23/23 13:55 Succinate 125 mg/ Sterile IV 07/23/23 13:28 125 mg Water 2 ml STAT ONE Administration Methylprednisolone Sodium Succinate Confirm 07/23/23 13:33 Methylprednis Sod Succ 125 Mg/2 Ml Vial Administered 07/23/23 13:34 Dose 125 mg .ROUTE .STK-MED ONE Sterile Water Confirm 07/23/23 13:33 Water For Injection,Sterile 10 Ml Vial Administered 07/23/23 13:34 Dose 10 ml IJ .STK-MED ONE Lab/Rad Data: Laboratory Result Diagrams 07/23/23 13:00 07/23/23 13:00 Laboratory Results 07/23/23 07/23/23 07/23/23 Range/Units 15:38 13:58 13:55 WBC (4.0-10.5) x10^3/uL RBC (4.1-5.4) x10^6/uL Hgb (12.0-16.0) g/dL Hct (35-47) % MCV (78-100) fL MCH (26-32) pg MCHC (32-36) g/dL RDW (11.5-14.0) % Plt Count (150-450) x10^3/uL MPV (7.5-11.0) fL Gran % (36.0-66.0) % Immature Gran % (Auto) (0.00-0.4) % Nucleat RBC Rel Count (0.00-0.1) % Eos # (Auto) (0-0.5) x10^3/uL Immature Gran # (Auto) (0.00-0.03) x10^3u/L Absolute Lymphs (auto) (1.0-4.6) x10^3/uL Absolute Monos (auto) (0.0-1.3) x10^3/uL Absolute Nucleated RBC (0.00-0.01) x10^3u/L Lymphocytes % (24.0-44.0) % Monocytes % (0.0-12.0) % Eosinophils % (0.00-5.0) % Basophils % (0.0-0.4) % Absolute Granulocytes (1.4-6.9) x10^3/uL Basophils # (0-0.4) x10^3/uL PT (9.4-12.5) SECONDS INR (0.8-3.0) D-Dimer 0.34 (0.0-0.50) mg/L Sodium (137-145) mmol/L Potassium (3.5-5.1) mmol/L Chloride (98-107) mmol/L Carbon Dioxide (22-30) mmol/L Anion Gap (5-15) MEQ/L BUN (7-17) mg/dL Creatinine (0.52-1.04) mg/dL Estimated GFR ML/MIN Glucose (74-106) mg/dL Calcium (8.4-10.2) mg/dL Total Bilirubin (0.2-1.3) mg/dL AST (14-36) U/L ALT (0-35) U/L Alkaline Phosphatase (38-126) U/L Troponin I < 0.012 (0.000-0.034) ng/mL NT-Pro-B Natriuret Pep (<300) pg/mL Serum Total Protein (6.3-8.2) g/dL Albumin (3.5-5.0) g/dL Influenza Type A Ag NEGATIVE (NEGATIVE) Influenza Type B Ag NEGATIVE (NEGATIVE) RSV (PCR) NEGATIVE (NEGATIVE) SARS-CoV-2 (PCR) NEGATIVE (NEGATIVE) 07/23/23 07/23/23 07/23/23 Range/Units 13:00 13:00 13:00 WBC (4.0-10.5) x10^3/uL RBC (4.1-5.4) x10^6/uL Hgb (12.0-16.0) g/dL Hct (35-47) % MCV (78-100) fL MCH (26-32) pg MCHC (32-36) g/dL RDW (11.5-14.0) % Plt Count (150-450) x10^3/uL MPV (7.5-11.0) fL Gran % (36.0-66.0) % Immature Gran % (Auto) (0.00-0.4) % Nucleat RBC Rel Count (0.00-0.1) % Eos # (Auto) (0-0.5) x10^3/uL Immature Gran # (Auto) (0.00-0.03) x10^3u/L Absolute Lymphs (auto) (1.0-4.6) x10^3/uL Absolute Monos (auto) (0.0-1.3) x10^3/uL Absolute Nucleated RBC (0.00-0.01) x10^3u/L Lymphocytes % (24.0-44.0) % Monocytes % (0.0-12.0) % Eosinophils % (0.00-5.0) % Basophils % (0.0-0.4) % Absolute Granulocytes (1.4-6.9) x10^3/uL Basophils # (0-0.4) x10^3/uL PT 11.1 (9.4-12.5) SECONDS INR 1.02 (0.8-3.0) D-Dimer (0.0-0.50) mg/L Sodium 140 (137-145) mmol/L Potassium 3.5 (3.5-5.1) mmol/L Chloride 100 (98-107) mmol/L Carbon Dioxide 31 H (22-30) mmol/L Anion Gap 13.0 (5-15) MEQ/L BUN 16 (7-17) mg/dL Creatinine 0.47 L (0.52-1.04) mg/dL Estimated GFR 106.9 ML/MIN Glucose 114 H (74-106) mg/dL Calcium 9.6 (8.4-10.2) mg/dL Total Bilirubin 1.20 (0.2-1.3) mg/dL AST 23 (14-36) U/L ALT 12 (0-35) U/L Alkaline Phosphatase 88 (38-126) U/L Troponin I (0.000-0.034) ng/mL NT-Pro-B Natriuret Pep 354 (<300) pg/mL Serum Total Protein 8.1 (6.3-8.2) g/dL Albumin 4.2 (3.5-5.0) g/dL Influenza Type A Ag (NEGATIVE) Influenza Type B Ag (NEGATIVE) RSV (PCR) (NEGATIVE) SARS-CoV-2 (PCR) (NEGATIVE) 07/23/23 Range/Units 13:00 WBC 13.8 H (4.0-10.5) x10^3/uL RBC 4.69 (4.1-5.4) x10^6/uL Hgb 15.1 (12.0-16.0) g/dL Hct 45.3 (35-47) % MCV 96.6 (78-100) fL MCH 32.2 H (26-32) pg MCHC 33.3 (32-36) g/dL RDW 13.9 (11.5-14.0) % Plt Count 289 (150-450) x10^3/uL MPV 9.5 (7.5-11.0) fL Gran % 83.4 H (36.0-66.0) % Immature Gran % (Auto) 0.5 H (0.00-0.4) % Nucleat RBC Rel Count 0.0 (0.00-0.1) % Eos # (Auto) 0 (0-0.5) x10^3/uL Immature Gran # (Auto) 0.07 H (0.00-0.03) x10^3u/L Absolute Lymphs (auto) 1.24 (1.0-4.6) x10^3/uL Absolute Monos (auto) 0.95 (0.0-1.3) x10^3/uL Absolute Nucleated RBC 0.00 (0.00-0.01) x10^3u/L Lymphocytes % 9.0 L (24.0-44.0) % Monocytes % 6.9 (0.0-12.0) % Eosinophils % 0.0 (0.00-5.0) % Basophils % 0.2 (0.0-0.4) % Absolute Granulocytes 11.54 H (1.4-6.9) x10^3/uL Basophils # 0.03 (0-0.4) x10^3/uL PT (9.4-12.5) SECONDS INR (0.8-3.0) D-Dimer (0.0-0.50) mg/L Sodium (137-145) mmol/L Potassium (3.5-5.1) mmol/L Chloride (98-107) mmol/L Carbon Dioxide (22-30) mmol/L Anion Gap (5-15) MEQ/L BUN (7-17) mg/dL Creatinine (0.52-1.04) mg/dL Estimated GFR ML/MIN Glucose (74-106) mg/dL Calcium (8.4-10.2) mg/dL Total Bilirubin (0.2-1.3) mg/dL AST (14-36) U/L ALT (0-35) U/L Alkaline Phosphatase (38-126) U/L Troponin I (0.000-0.034) ng/mL NT-Pro-B Natriuret Pep (<300) pg/mL Serum Total Protein (6.3-8.2) g/dL Albumin (3.5-5.0) g/dL Influenza Type A Ag (NEGATIVE) Influenza Type B Ag (NEGATIVE) RSV (PCR) (NEGATIVE) SARS-CoV-2 (PCR) (NEGATIVE) - Progress Progress: improved, re-examined Air Movement: fair Progress Note: 07/23/23 15:22 This patient's medical issue is 1 of moderate complexity. The level of complexity in the workup performed is based on review of the patient's past medical history, review of the patient's medication list, review the patient's drug allergy list, history present illness and physical findings on examination. Workup in this patient includes placement of intravenous line, provision of nebulizer treatment, RT evaluation, Solu-Medrol infusion, CBC, CMP, twelve-lead EKG, viral swabs, chest x-ray, BNP, troponin level and D-dimer level. The chest x-ray was interpreted by the radiologist. I reviewed the impression. There are changes consistent with COPD. There is no acute/new findings. 07/23/23 17:57 I reviewed the patient's laboratory data results. I interpreted them. There are no emergent, acute findings on the laboratory results. This patient states she is feeling much better. She has no chest pain on oxygen, which she does have at home, she is 96%. She has prednisone and the remainder of a Z-Jeramy present. Her workup shows that she has COPD exacerbation with likely an upper respiratory infection/illness. Blood Culture(s) Obtained: Yes Counseled pt/family regarding: lab results, diagnosis, rad results Medical Desision Making - Independent Historian Additional History obtained from: Spouse - Diagnostic Testing Diagnostic test were ordered, analyzed, and reviewed by me: Yes Radiological Interpretation: Reviewed by me, Teleradiologist Report - Risk of complications The pt has a mod risk of morbidity or mortality based on: Need for prescription drug management - Departure Departure Disposition: Home Clinical Impression: COPD exacerbation, Upper respiratory infection Condition: Stable Critical Care Time: No Referrals: DISHA MACKEY JR [Primary Care Provider] - Follow up/PCP as directed Instructions: Chronic Obstructive Pulmonary Disease Additional Instructions: Drink plenty of fluids. Avoid exposure to any type of smoke. Use your oxygen at home. Take your medications as prescribed. Call your primary care provider tomorrow, 07/24/2023 to make arrangements for follow-up appointment and further evaluation in the next 3 to 5 days. Prescriptions: Benzonatate 200 mg PO TID PRN #10 cap PRN Reason: Cough
[2023-07-23 12:43] VITALS: TEMP 96.8
[2023-07-23] MEDS ORDERED: solu-MEDROL 125 MG, Sterile H2O 10 ml 2 ML IV ONE ×2 (13:27)
[2023-07-23] MEDS ORDERED: Sterile H2O 10 ml IJ ONE (13:33)
[2023-07-23] MEDS ORDERED: solu-MEDROL ONE (13:33)
[2023-07-23 13:37] LABS: Absolute Neutrophil Ct (ANC) 11.54 x10^3/uL (1.4-6.9); BASOPHIL % 0.2 % (0.0-0.4); Basophil (Absolute #) 0.03 x10^3/uL (0-0.4); Eosinophil (Absolute #) 0 x10^3/uL (0-0.5); Hematocrit 45.3 % (35-47); Hemoglobin 15.1 g/dL (12.0-16.0); IMMATURE GRAN # 0.07 x10^3u/L (0.00-0.03); IMMATURE GRAN % 0.5 % (0.00-0.4); Lymphocyte (Absolute #) 1.24 x10^3/uL (1.0-4.6); Mean Cell Volume 96.6 fL (78-100); Mean Corpuscular Hemoglobin 32.2 pg (26-32); Mean Corpuscular Hgb Concent. 33.3 g/dL (32-36); Mean Platelet Volume 9.5 fL (7.5-11.0); Monocyte (Absolute #) 0.95 x10^3/uL (0.0-1.3); Monocytes % 6.9 % (0.0-12.0); Neutrophil % 83.4 % (36.0-66.0); Platelet Count 289 x10^3/uL (150-450); Red Blood Count 4.69 x10^6/uL (4.1-5.4); Red Cell Distribution Width 13.9 % (11.5-14.0); White Blood Count 13.8 x10^3/uL (4.0-10.5)
[2023-07-23 13:45] LABS: INR 1.02 (0.8-3.0); PROTIME 11.1 SECONDS (9.4-12.5)
--- NOTE | 2023-07-23 13:57 | XRAY ---
Indication: Short of breath. Cough. COPD. Comparison: September 07, 2021 Portable chest again demonstrates COPD, left mid to lower lung subsegmental atelectasis/scarring, and tiny right lung calcified granuloma. Heart not enlarged. Bony thorax intact. No new/acute findings.
[2023-07-23 14:44] LABS: INFLUENZA A NEGATIVE (NEGATIVE); INFLUENZA B NEGATIVE (NEGATIVE); RESPIRATORY SYNCTIAL VIRUS NEGATIVE (NEGATIVE); SARS-CoV-2 Xpert Express NEGATIVE (NEGATIVE)
[2023-07-23 14:47] LABS: ALBUMIN 4.2 g/dL (3.5-5.0); BILIRUBIN,TOTAL 1.2 mg/dL (0.2-1.3); Calcium 9.6 mg/dL (8.4-10.2); Creatinine 1 0.47 mg/dL (0.52-1.04); EST GLOMERULAR FILTRATION RATE 106.9 ML/MIN; Potassium 3.5 mmol/L (3.5-5.1); Total Protein 8.1 g/dL (6.3-8.2)
[2023-07-23] MEDS ORDERED: Levofloxacin 500MG/100ML D5W 500 MG/100 ML BAG IV STA (17:56)
[2023-07-23] MEDS ORDERED: HYDROCODONE-ACETAMIN 2.5-108/5 ML SOLUTION PO STA (17:57)
[2023-07-23] MEDS ORDERED: HYDROCODONE-ACETAMIN 2.5-108/5 ML SOLUTION ONE (18:05)
[2023-07-23] MEDS ORDERED: Levofloxacin 500MG/100ML D5W 500 MG/100 ML BAG IV ONE (18:06)
[2023-07-23 20:24] VITALS: BP 132/74; PULSE 80; RESP 22; O2SAT 93
== END 2023-07-23 20:34 | disposition home or self-care (01) ==
LOC: ED 12:29
DX: J44.1 Chronic obstructive pulmonary disease with (acute) exacerbation (principal); J06.9 Acute upper respiratory infection, unspecified; R05.1 Acute cough; R06.02 Shortness of breath; Z79.891 Long term (current) use of opiate analgesic; Z79.899 Other long term (current) drug therapy; Z28.310 Unvaccinated for COVID-19; Z72.0 Tobacco use
CPT/HCPCS: 0241U; 36000; 36415; 71045; 80053; 83880; 84484; 85025; 85379; 85610; 87040; 93005; 94640; 94760; 96374; 99284; J1956; J2930; A9270-GY

== ENCOUNTER 2024-09-16 17:01 | Inpatient (IN) | payer MEDICARE ==
[2024-09-16] MEDS ORDERED: ZITHROMAX IV*** 0 MG in Sodium Chloride 0.9% 250 ML 250 ML IV ONE (17:50)
--- NOTE | 2024-09-16 17:53 | ERPHSYRPT ---
- History of Present Illness Source: patient Patient Subjective Stated Complaint: sob, weakness, non productive cough x 2 d ays Triage Nursing Assessment: Presents to ED bed 4 via wheelchair. Pt comes from home. C/o sob, non productive cough,weakness worse over the last 2 days. States hx of COPD, no home O2 use. Was placed on z pack and steroid 2 weeks ago when sx initially started, did not have improvement, and began feeling much worse the last 2 days. Upon arrival to room, pt changed into gown and placed on monitor. O2 noted to be 76% on RA. 6LO2 via NC applied, O2 up to 94%. Pt states she is short of breath at rest, lips appear dusky. Slight tachypnea noted, able to speak in full sentences. Pt is able to lay back in bed without any worsening SOB. Skin PWD. Denies chest pain, denies recent exposure to anyone else with any respiratory symptoms. States last COPD flare was approx 1 yr ago. Lung sounds diminished throughout. Hx Tetanus, Diphtheria Vaccination/Date Given: Yes Hx Influenza Vaccination/Date Given: No Hx Pneumococcal Vaccination/Date Given: No <ASHOK NOYOLA - Last Filed: 09/16/24 19:12> <HANK WRIGHT - Last Filed: 09/16/24 21:13> - History of Present Illness Time Seen by Provider: 09/16/24 17:33 Physician History: Pt states she started with a nonproductive cough about 2 weeks ago and started a Z-stanley at that time. For the past week pt has had shortness of air, worse in the past 2 days. Pt has had an achy vertex headache for one day 7 days ago only, chills since yesterday and diarrhea without blood yesterday. Pt states she has been taking steroids starting 2 weeks ago. Pt denies chest pain, vomiting, dysuria. (ASHOK NOYOLA) Allergies/Adverse Reactions: morphine Allergy (Severe, Verified 07/23/23 12:43) Vomiting Penicillins Allergy (Severe, Verified 07/23/23 12:43) convulsions Home Medications: Levothyroxine Sodium 25 Mcg [Synthroid 25 Mcg] 25 mcg PO DAILY 06/06/16 [History] Methadone HCl 5 mg PO UD 04/24/21 [History] Tizanidine HCl 2 mg PO TID 04/24/21 [History] Travel Risk - International Travel Have you traveled outside of the country in past 3 weeks: No - Emerging Infectious Disease Are you exhibiting symptoms associated with any current EIDs: Yes Symptoms: Cough: New Onset <ASHOK NOYOLA - Last Filed: 09/16/24 19:12> - Review of Systems Constitutional: Chills Respiratory: Cough, Dyspnea Cardiac: No Chest Pain Abdominal/Gastrointestinal: Diarrhea, No Vomiting Genitourinary Symptoms: No Dysuria Neurological: Headache <ASHOK NOYOLA EDMIGUELINA - Last Filed: 09/16/24 19:12> - Past Medical History Pertinent Past Medical History: Yes Neurological History: Migraines ENT History: No Pertinent History Cardiac History: No Pertinent History Respiratory History: COPD Endocrine Medical History: Hypothyroidism Musculoskeletal History: No Pertinent History GI Medical History: No Pertinent History History: No Pertinent History Psycho-Social History: No Pertinent History Female Reproductive Disorders: Breast Cancer Other Medical History: chronic hip problem since 3 years of age - chronic back - Past Surgical History Past Surgical History: Yes Neuro Surgical History: No Pertinent History Cardiac: No Pertinent History Respiratory: No Pertinent History Gastrointestinal: Hemorrhoidectomy Genitourinary: No Pertinent History Musculoskeletal: Joint Replacement, Other Female Surgical History: Hysterectomy, Lumpectomy Other Surgical History: 12 hip surgeries. spine surgery Significant Family History: no pertinent family hx - Social History Smoking Status: Current every day smoker How long have you smoked: 30 yrs Exposure to second hand smoke: Yes Drug Use: none - Social Determinants of Health Will the patient participate in the screening: Yes Do you worry about a steady place to live?: No Do you have any problems with any of the following?: No known problems In the past 12 months,have you had to go without utilities?: No Transportation Issues: No Has anyone in your support network made you feel unsafe?: No Have you or anyone in your house had to go w/o enough food: No <ASHOK NOYOLA CLIFTON - Last Filed: 09/16/24 19:12> - Physical Exam General Appearance: alert Eye Exam: eyes nml inspection Ears, Nose, Throat Exam: hearing grossly normal, pharyngeal erythema (mild), No normal pharynx (dry m.m.) Neck Exam: normal inspection Respiratory Exam: crackles/rales, wheezing Cardiovascular/Chest Exam: normal heart sounds Abdominal/Gastrointestinal Exam: normal bowel sounds Extremity Exam: No pedal edema Neurologic Exam: alert, cooperative Skin Exam: warm, dry SpO2 Interpretation: hypoxic SpO2: 88 <ASHOK NOYOLA - Last Filed: 09/16/24 19:12> - Nursing Vital Signs Nursing Vital Signs: Initial Vital Signs Temperature 97.7 F 09/16/24 17:02 Pulse Rate 94 H 09/16/24 17:02 Respiratory Rate 24 09/16/24 17:02 Blood Pressure 110/75 09/16/24 17:02 O2 Sat by Pulse Oximetry 88 L 09/16/24 17:02 Pain Scale Pain Intensity 0 - Course Nursing assessment & vital signs reviewed: Yes EKG Interpreted by Me: RATE (93), Sinus Rhythm, Other (QTc = 431) <ASHOK NOYOLA - Last Filed: 09/16/24 19:12> Ordered Tests: Active Orders 24 hr Category Date Time Status EKG-ER Only STAT Care 09/16/24 17:47 Active IV Insertion STAT Care 09/16/24 17:47 Active Oxygen-ED Only Nasal Cannula 6 lpm Care 09/16/24 17:52 Active CHEST 2 VIEWS (PA AND LAT) Stat Exams 09/16/24 17:48 Taken CHEST WITH CONTRAST [CT] Stat Exams 09/16/24 18:28 Taken AMYLASE Stat Lab 09/16/24 17:15 Completed BLOOD CULTURE Stat Lab 09/16/24 18:33 Received CBC W DIFF Stat Lab 09/16/24 17:15 Completed CMP Stat Lab 09/16/24 17:15 Completed CULTURE,SPUTUM Stat Lab 09/16/24 17:50 Ordered D-DIMER QUANTITATIVE Stat Lab 09/16/24 17:15 Completed LIPASE Stat Lab 09/16/24 17:15 Completed Lactic Acid Stat Lab 09/16/24 18:30 Completed Lactic Acid Stat Lab 09/16/24 20:42 Received MAGNESIUM Stat Lab 09/16/24 17:15 Completed TROPONIN Q4H Lab 09/16/24 17:15 Completed TROPONIN Q4H Lab 09/16/24 22:00 Ordered TROPONIN Q4H Lab 09/17/24 02:00 Ordered VENOUS BLOOD GAS Stat Lab 09/16/24 18:30 Completed Respiratory Therapy Assessment DAILY RT 09/16/24 18:30 Active Medication Summary Generic Name Dose Route Start Last Admin Trade Name Freq PRN Reason Stop Dose Admin Azithromycin / Sodium Chloride 250 mls @ 125 mls/hr 09/16/24 17:50 IV 09/16/24 19:49 STAT ONE Sodium Chloride 1,000 mls @ 100 mls/hr 09/16/24 18:30 09/16/24 18:56 Sodium Chloride 0.9% 1000 Ml IV 10/16/24 18:29 100 mls/hr .Q10H CARINA Administration Discontinued Medications Generic Name Dose Route Start Last Admin Trade Name Claudia PRN Reason Stop Dose Admin Albuterol Sulfate 2.5 mg 09/16/24 18:02 09/16/24 18:36 Albuterol Sulfate 2.5 Mg/3 Ml Neb IH 09/16/24 18:03 2.5 mg STAT ONE Administration Albuterol Sulfate Confirm 09/16/24 18:27 Albuterol Sulfate 2.5 Mg/3 Ml Neb Administered 09/16/24 18:28 Dose 2.5 mg IH .STK-MED ONE Sodium Chloride 1,000 mls @ 999 mls/hr 09/16/24 17:47 09/16/24 18:55 Sodium Chloride 0.9% 1000 Ml IV 09/16/24 18:47 Infused .Q1H1M STA Infusion Ceftriaxone Sodium 1 gm in 100 mls @ 200 mls/hr 09/16/24 17:50 09/16/24 18:55 Rocephin 1 Gm / 100 Ml Nacl IV 09/16/24 18:19 Infused STAT ONE Infusion Sodium Chloride Confirm 09/16/24 18:01 Sodium Chloride 0.9% 1000 Ml Administered 09/16/24 18:02 Dose 1,000 mls @ ud .ROUTE .STK-MED ONE Ceftriaxone Sodium Confirm 09/16/24 18:01 Rocephin 1 Gm / 100 Ml Nacl Administered 09/16/24 18:02 Dose 1 gm in 100 mls @ ud IV .STK-MED ONE Oseltamivir Phosphate 75 mg 09/16/24 20:43 09/16/24 20:45 Oseltamivir 75 Mg Cap PO 09/16/24 20:44 75 mg STAT ONE Administration Oseltamivir Phosphate Confirm 09/16/24 20:45 Oseltamivir 75 Mg Cap Administered 09/16/24 20:46 Dose 75 mg PO .STK-MED ONE Lab/Rad Data: Laboratory Result Diagrams 09/16/24 17:15 09/16/24 17:15 Laboratory Results 09/16/24 09/16/24 09/16/24 Range/Units 18:35 18:30 18:30 WBC (3.98-10.04) x10^3/uL RBC (3.93-5.22) x10^6/uL Hgb (11.2-15.7) g/dL Hct (34.1-44.9) % MCV (79.4-94.8) fL MCH (25.6-32.2) pg MCHC (32.2-35.5) g/dL RDW (11.7-14.4) % Plt Count (182-369) x10^3/uL MPV (9.4-12.3) fL Gran % (34.0-71.1) % Immature Gran % (Auto) (0.001-0.429) % Nucleat RBC Rel Count (0.00-0.2) % Eos # (Auto) (0.04-0.36) x10^3/uL Immature Gran # (Auto) (0.001-0.031) x10^3u/L Absolute Lymphs (auto) (1.18-3.74) x10^3/uL Absolute Monos (auto) (0.24-0.86) x10^3/uL Absolute Nucleated RBC (0.00-0.012) x10^3u/L Lymphocytes % (19.3-51.7) % Monocytes % (4.7-12.5) % Eosinophils % (0.7-5.8) % Basophils % (0.1-1.2) % Absolute Granulocytes (1.56-6.13) x10^3/uL Basophils # (0.01-0.08) x10^3/uL D-Dimer (0.0-0.50) mg/L pO2/FiO2 Ratio 21.0 % VBG pH 7.42 (7.32-7.42) VBG pCO2 at Pat Temp 43 (42-55) mm/Hg VBG pO2 at Pat Temp 31 (25-40) mm/Hg VBG HCO3 27.9 (22-28) meq/L VBG O2 Sat (Simi) 54.2 L (95-100) VBG Base Excess 2.9 H (-2.0-2.0) VBG Hemoglobin 15.3 VBG Carboxyhemoglobin 3.8 (0.0-6.9) % T HGB POC Potassium 3.7 (3.5-5.1) Sodium (135-145) mmol/L Potassium (3.5-5.1) mmol/L Chloride (98-107) mmol/L Carbon Dioxide (22-30) mmol/L Anion Gap (5-15) MEQ/L BUN (7-17) mg/dL Creatinine (0.52-1.04) mg/dL Estimated GFR ML/MIN Glucose (74-106) mg/dL Lactic Acid 2.8 H (0.4-2.0) Calcium (8.4-10.2) mg/dL Magnesium (1.6-2.3) mg/dL Total Bilirubin (0.2-1.3) mg/dL AST (14-36) U/L ALT (0-35) U/L Alkaline Phosphatase (38-126) U/L Troponin I (0.000-0.033) ng/mL Serum Total Protein (6.3-8.2) g/dL Albumin (3.5-5.0) g/dL Amylase (30-110) U/L Lipase (23-300) U/L Influenza Type A Ag POSITIVE A (NEGATIVE) Influenza Type B Ag NEGATIVE (NEGATIVE) RSV (PCR) NEGATIVE (NEGATIVE) SARS-CoV-2 (PCR) NEGATIVE (NEGATIVE) Slides for Path Review 09/16/24 09/16/24 09/16/24 Range/Units 17:15 17:15 17:15 WBC (3.98-10.04) x10^3/uL RBC (3.93-5.22) x10^6/uL Hgb (11.2-15.7) g/dL Hct (34.1-44.9) % MCV (79.4-94.8) fL MCH (25.6-32.2) pg MCHC (32.2-35.5) g/dL RDW (11.7-14.4) % Plt Count (182-369) x10^3/uL MPV (9.4-12.3) fL Gran % (34.0-71.1) % Immature Gran % (Auto) (0.001-0.429) % Nucleat RBC Rel Count (0.00-0.2) % Eos # (Auto) (0.04-0.36) x10^3/uL Immature Gran # (Auto) (0.001-0.031) x10^3u/L Absolute Lymphs (auto) (1.18-3.74) x10^3/uL Absolute Monos (auto) (0.24-0.86) x10^3/uL Absolute Nucleated RBC (0.00-0.012) x10^3u/L Lymphocytes % (19.3-51.7) % Monocytes % (4.7-12.5) % Eosinophils % (0.7-5.8) % Basophils % (0.1-1.2) % Absolute Granulocytes (1.56-6.13) x10^3/uL Basophils # (0.01-0.08) x10^3/uL D-Dimer 0.66 H* (0.0-0.50) mg/L pO2/FiO2 Ratio % VBG pH (7.32-7.42) VBG pCO2 at Pat Temp (42-55) mm/Hg VBG pO2 at Pat Temp (25-40) mm/Hg VBG HCO3 (22-28) meq/L VBG O2 Sat (Simi) (95-100) VBG Base Excess (-2.0-2.0) VBG Hemoglobin VBG Carboxyhemoglobin (0.0-6.9) % T HGB POC Potassium (3.5-5.1) Sodium 133 L (135-145) mmol/L Potassium 4.2 (3.5-5.1) mmol/L Chloride 89 L (98-107) mmol/L Carbon Dioxide 31 H (22-30) mmol/L Anion Gap 16.9 H (5-15) MEQ/L BUN 36 H (7-17) mg/dL Creatinine 0.98 (0.52-1.04) mg/dL Estimated GFR 64.5 ML/MIN Glucose 117 H (74-106) mg/dL Lactic Acid (0.4-2.0) Calcium 8.6 (8.4-10.2) mg/dL Magnesium 2.5 H (1.6-2.3) mg/dL Total Bilirubin 0.90 (0.2-1.3) mg/dL AST 76 H (14-36) U/L ALT 30 (0-35) U/L Alkaline Phosphatase 92 (38-126) U/L Troponin I < 0.012 (0.000-0.033) ng/mL Serum Total Protein 7.7 (6.3-8.2) g/dL Albumin 4.5 (3.5-5.0) g/dL Amylase 61 (30-110) U/L Lipase 68 (23-300) U/L Influenza Type A Ag (NEGATIVE) Influenza Type B Ag (NEGATIVE) RSV (PCR) (NEGATIVE) SARS-CoV-2 (PCR) (NEGATIVE) Slides for Path Review 09/16/24 Range/Units 17:15 WBC 7.9 (3.98-10.04) x10^3/uL RBC 4.97 (3.93-5.22) x10^6/uL Hgb 16.0 H (11.2-15.7) g/dL Hct 46.5 H (34.1-44.9) % MCV 93.6 (79.4-94.8) fL MCH 32.2 (25.6-32.2) pg MCHC 34.4 (32.2-35.5) g/dL RDW 13.8 (11.7-14.4) % Plt Count 146 L (182-369) x10^3/uL MPV 9.7 (9.4-12.3) fL Gran % 84.1 H (34.0-71.1) % Immature Gran % (Auto) 0.8 H (0.001-0.429) % Nucleat RBC Rel Count 0.0 (0.00-0.2) % Eos # (Auto) 0 L (0.04-0.36) x10^3/uL Immature Gran # (Auto) 0.06 H (0.001-0.031) x10^3u/L Absolute Lymphs (auto) 0.58 L (1.18-3.74) x10^3/uL Absolute Monos (auto) 0.61 (0.24-0.86) x10^3/uL Absolute Nucleated RBC 0.00 (0.00-0.012) x10^3u/L Lymphocytes % 7.4 L (19.3-51.7) % Monocytes % 7.7 (4.7-12.5) % Eosinophils % 0.0 L (0.7-5.8) % Basophils % 0.0 L (0.1-1.2) % Absolute Granulocytes 6.64 H (1.56-6.13) x10^3/uL Basophils # 0 L (0.01-0.08) x10^3/uL D-Dimer (0.0-0.50) mg/L pO2/FiO2 Ratio % VBG pH (7.32-7.42) VBG pCO2 at Pat Temp (42-55) mm/Hg VBG pO2 at Pat Temp (25-40) mm/Hg VBG HCO3 (22-28) meq/L VBG O2 Sat (Simi) (95-100) VBG Base Excess (-2.0-2.0) VBG Hemoglobin VBG Carboxyhemoglobin (0.0-6.9) % T HGB POC Potassium (3.5-5.1) Sodium (135-145) mmol/L Potassium (3.5-5.1) mmol/L Chloride (98-107) mmol/L Carbon Dioxide (22-30) mmol/L Anion Gap (5-15) MEQ/L BUN (7-17) mg/dL Creatinine (0.52-1.04) mg/dL Estimated GFR ML/MIN Glucose (74-106) mg/dL Lactic Acid (0.4-2.0) Calcium (8.4-10.2) mg/dL Magnesium (1.6-2.3) mg/dL Total Bilirubin (0.2-1.3) mg/dL AST (14-36) U/L ALT (0-35) U/L Alkaline Phosphatase (38-126) U/L Troponin I (0.000-0.033) ng/mL Serum Total Protein (6.3-8.2) g/dL Albumin (3.5-5.0) g/dL Amylase (30-110) U/L Lipase (23-300) U/L Influenza Type A Ag (NEGATIVE) Influenza Type B Ag (NEGATIVE) RSV (PCR) (NEGATIVE) SARS-CoV-2 (PCR) (NEGATIVE) Slides for Path Review YES - Progress Progress: improved Air Movement: fair Blood Culture(s) Obtained: Yes Antibiotics given: Yes Discussed with Dr.: Other (Dr. Apple hospitalist) Will see patient in: hospital (observation) Counseled pt/family regarding: lab results, diagnosis, rad results <HANK WRIGHT - Last Filed: 09/16/24 21:13> - Progress Progress Note: 09/16/24 21:10 64-year-old with history of COPD, tobacco use is checked out to me at shift change from Dr. Noyola with pending CTA chest. Patient is currently on 6 L oxygen with saturation in the low 90s., She has received antibiotics and steroids, feeling better during my evaluation. She has positive influenza A and started on Tamiflu. CTA per preliminary report is negative for any gross acute central PE, study was not ideal because of motion artifact. Patient's D-dimer were 0.66 which are barely above the age-adjusted D-dimer limit for her age. I have discussed with Dr. APPLE, reviewed history, workup and agreed with admission. I have shared the results of workup with patient and plan of admission which she understands and agrees. Complexity of problems addressed: High acute Amount and complexity of data to be reviewed and analyzed: Extensive Risk of complication/morbidity/mortality of patient management: High risk. (HANK WRIGHT) Medical Desision Making - Discussion of managment Care discussed with:: hospitalist Reviewed:: Test results Agreed on:: Treatment plan, place in obs Will see patient: in hospital - Diagnostic Testing Diagnostic test were ordered, analyzed, and reviewed by me: Yes Radiological Interpretation: Reviewed by me, Teleradiologist Report - Risk of complications The pt has a mod risk of morbidity or mortality based on: Need for prescription drug management The pt has a high risk of morbidity or mortality based on: Decision regarding hospitilization or escalation of hosp level of care <HANK WRIGHT - Last Filed: 09/16/24 21:13> - Departure Critical Care Time: No <ASHOK NOYOLA - Last Filed: 09/16/24 19:12> <HANK WRIGHT - Last Filed: 09/16/24 21:13> - Departure Clinical Impression: Dehydration, Elevated lactic acid level, Hypoxia, COPD exacerbation, Influenza A Condition: Stable Referrals: DISHA MACKEY JR [Primary Care Provider] - Follow up/PCP as directed Instructions: Chronic Obstructive Pulmonary Disease
[2024-09-16 17:56] LABS: Absolute Neutrophil Ct (ANC) 6.64 x10^3/uL (1.56-6.13); Basophil (Absolute #) 0 x10^3/uL (0.01-0.08); Eosinophil (Absolute #) 0 x10^3/uL (0.04-0.36); Hematocrit 46.5 % (34.1-44.9); IMMATURE GRAN # 0.06 x10^3u/L (0.001-0.031); IMMATURE GRAN % 0.8 % (0.001-0.429); Lymphocyte (Absolute #) 0.58 x10^3/uL (1.18-3.74); Lymphocytes % 7.4 % (19.3-51.7); Mean Cell Volume 93.6 fL (79.4-94.8); Mean Corpuscular Hemoglobin 32.2 pg (25.6-32.2); Mean Corpuscular Hgb Concent. 34.4 g/dL (32.2-35.5); Mean Platelet Volume 9.7 fL (9.4-12.3); Monocyte (Absolute #) 0.61 x10^3/uL (0.24-0.86); Monocytes % 7.7 % (4.7-12.5); Neutrophil % 84.1 % (34.0-71.1); Platelet Count 146 x10^3/uL (182-369); Red Blood Count 4.97 x10^6/uL (3.93-5.22); Red Cell Distribution Width 13.8 % (11.7-14.4); White Blood Count 7.9 x10^3/uL (3.98-10.04)
[2024-09-16] MEDS ORDERED: Sodium Chloride 0.9% 1000 ML 1,000 ML ONE ×2 (18:01→18:56)
[2024-09-16] MEDS ORDERED: ROCEPHIN 1 GM / 100 ML NaCl 1 GM/100 ML IVPB IV ONE (18:01)
[2024-09-16] MEDS: Sodium Chloride 0.9% 1000 ML 1,000 ML IV STA (18:02)
[2024-09-16] MEDS: ROCEPHIN 1 GM / 100 ML NaCl 1 GM/100 ML IVPB IV ONE (18:03)
[2024-09-16 18:04] LABS: ALBUMIN 4.5 g/dL (3.5-5.0); ANION GAP 16.9 MEQ/L (5-15); BILIRUBIN,TOTAL 0.9 mg/dL (0.2-1.3); Calcium 8.6 mg/dL (8.4-10.2); Creatinine 1 0.98 mg/dL (0.52-1.04); EST GLOMERULAR FILTRATION RATE 64.5 ML/MIN; MAGNESIUM 2.5 mg/dL (1.6-2.3); Potassium 4.2 mmol/L (3.5-5.1); Total Protein 7.7 g/dL (6.3-8.2)
[2024-09-16] MEDS ORDERED: PROVENTIL 2.5 MG/3 ML NEB IH ONE (18:27)
[2024-09-16] MEDS: PROVENTIL 2.5 MG/3 ML NEB IH ONE (18:36)
[2024-09-16 18:45] LABS: VBG BASE EXCESS 2.9 (-2.0-2.0); VBG CARBOXYHEMOGLOBIN 3.8 % T HGB (0.0-6.9); VBG HCO3- 27.9 meq/L (22-28); VBG HEMOGLOBIN 15.3; VBG O2 SATURATION 54.2 (95-100); VBG POTASSIUM 3.7 (3.5-5.1); VBG pH 7.42 (7.32-7.42)
[2024-09-16] MEDS: Sodium Chloride 0.9% 1000 ML 1,000 ML IV SCH (18:56)
[2024-09-16 19:18] LABS: INFLUENZA B NEGATIVE (NEGATIVE); RESPIRATORY SYNCTIAL VIRUS NEGATIVE (NEGATIVE); SARS-CoV-2 Xpert Express NEGATIVE (NEGATIVE)
[2024-09-16 19:27] LABS: INFLUENZA A POSITIVE (NEGATIVE)
[2024-09-16 19:36] LABS: Slide Review 1 YES
[2024-09-16] MEDS ORDERED: Tamiflu 75MG Capsule PO ONE (20:45)
[2024-09-16] MEDS: Tamiflu 75MG Capsule PO ONE (20:45)
--- NOTE | 2024-09-16 21:49 | XRAY ---
Indication: Dyspnea. Comparison: July 23, 2023 PA/lateral chest again demonstrates COPD, minimal left base subsegmental atelectasis/scarring, and tiny right lung calcified granuloma. Heart not enlarged. Bony thorax intact. No new/acute findings.
--- NOTE | 2024-09-16 21:53 | XRAY ---
Indication: Elevated d-dimer. Multiple contiguous axial images obtained through the chest using 80 cc Isovue 370 contrast and PE protocol. Comparison: None Good opacification pulmonary arteries. However mild diffuse respiration artifact limits pulmonary embolus evaluation. No obvious pulmonary embolus. Heart not enlarged. Aorta is normal in course and caliber with minimal scattered calcifications. No pathologic mediastinal/hilar lymphadenopathy. Lungs demonstrates moderate diffuse pulmonary emphysema with mild scattered peripheral fibrosis/scarring and small right upper lobe calcified granuloma. Left lung base demonstrates small triangular focus of subsegmental atelectasis/scarring. No infiltrate or effusion. Bony thorax intact with minimal degenerative changes throughout spine and minimal dextroscoliosis. Limited upper abdomen demonstrates fatty liver. Impression: 1. Pulmonary embolus evaluation limited by respiration artifact. No obvious pulmonary embolus. 2. Left lung base subsegmental atelectasis/scarring. 3. Chronic findings including pulmonary emphysema, fibrosis/scarring, arteriosclerotic disease, chronic bony findings, fatty liver, and old granulomatous disease.
[2024-09-16] MEDS: DUONEB 0.5-3 MG/3 ml Neb IH SCH (23:30)
[2024-09-16] MEDS ORDERED: DUONEB 0.5-3 MG/3 ml Neb IH ONE (23:39)
--- NOTE | 2024-09-17 00:36 | PCM.HP ---
History of Present Illness - Chief Complaint Chief Complaint: Shortness of breath Date: 09/17/24 History of Present Illness: is a 64 year old female With past medical history significant for chronic pain syndrome on methadone, hypothyroidism, COPD not on home oxygen who came to ER complaining of shortness of breath for last 3 days without much cough congestion fever. She denied having any chest pain. No leg swelling. No orthopnea or PND reported. In the ER she was desaturating initially has been placed on 6 L oxygen to keep sats more than 80%. Labs remained unremarkable except sodium 133 bicarb running high, chest x-ray significant for chronic emphysematous changes. D-dimer was running high patient under went CT chest that did not show any pulmonary embolism except chronic emphysema and left lung atelectasis. She tested positive for influenza A. she received steroids breathing therapy and got admitted for further care. - Review of Systems All Other Systems: Reviewed and Negative (14 systems reviewed and marked ve except mentioned in JAMUL) Medications & Allergies Home Medications: Home Medication List Levothyroxine Sodium 25 Mcg [Synthroid 25 Mcg] 25 mcg PO DAILY 06/06/16 [History Confirmed 09/16/24] Methadone HCl 5 mg PO UD 04/24/21 [History Confirmed 09/16/24] Tizanidine HCl 2 mg PO TID 04/24/21 [History Confirmed 09/16/24] Allergies/Adverse Reactions: Allergies Allergy/AdvReac Type Severity Reaction Status Date / Time morphine Allergy Severe Vomiting Verified 07/23/23 12:43 Penicillins Allergy Severe Verified 07/23/23 12:43 - Past Medical History Past Medical History: Yes Neurological History: Migraines ENT History: No Pertinent History Cardiac History: No Pertinent History Respiratory History: COPD Endocrine Medical History: Hypothyroidism Musculoskelatal History: Other GI Medical History: No Pertinent History History: No Pertinent History Pyscho-Social History: No Pertinent History Reproductive Disorders: Ovarian Cancer Comment: chronic hip problem since 3 years of age - chronic back; anemia - Past Surgical History Past Surgical History: Yes Neuro Surgical History: No Pertinent History Cardiac History: No Pertinent History Respiratory Surgery: No Pertinent History GI Surgical History: Appendectomy, Hemorrhoidectomy Genitourinary Surgical Hx: No Pertinent History Musculskeletal Surgical Hx: Joint Replacement, Other Female Surgical History: Hysterectomy Other Surgical History: 12 hip surgeries (3 R hip replacements). spine surgery. L leg surgery (limb reduction) Significant Family History: no pertinent family hx - Social History Smoking Status: Current every day smoker How long have you smoked: 30 yrs Exposure to second hand smoke: Yes Alcohol: None Drug Use: none - Social Determinants of Health Will the patient participate in the screening: Yes Do you worry about a steady place to live?: No Do you have any problems with any of the following?: No known problems In the past 12 months,have you had to go without utilities?: No Have you or anyone in your house had to go without enough: No Transportation Issues: No Has anyone in your support network made you feel unsafe?: No - Physical Exam Vital Signs: Vital Signs - 24 hr Temp Pulse Resp BP BP Pulse Ox 09/16/24 23:35 94 L 09/16/24 23:30 91 H 20 86 L 09/16/24 22:00 92 H 14 140/86 93 L 09/16/24 21:30 93 H 15 136/86 92 L 09/16/24 21:00 94 H 23 141/77 94 L 09/16/24 20:30 90 16 138/75 94 L 09/16/24 20:00 94 H 19 139/81 92 L 09/16/24 19:30 92 H 21 144/77 94 L 09/16/24 19:16 92 H 17 155/81 94 L 09/16/24 19:15 88 L 09/16/24 18:36 88 22 92 L 09/16/24 18:18 83 18 103/83 93 L 09/16/24 18:04 91 H 19 103/83 94 L 09/16/24 17:30 127/72 09/16/24 17:02 97.7 F 94 H 24 110/75 88 L Additional Findings: 09/17/24 00:36 HEENT Middle aged, average built in no distress NECK Supple,no thyromegaly, CVS S1+S2 + 0, no murmers RESP Bilateral equal air entry with Crepts/Wheezes heard GIT Soft non tender,non distended Skin, No rah, no Bruises LEGS No Edema PSYCH Normal,mood, judgement and insight NEURO AOX3, no focal deficit Results - Labs Lab/Micro Results: Lab Results-Last 24 Hours 09/16/24 09/16/24 09/16/24 Range/Units 17:15 17:15 17:15 WBC 7.9 (3.98-10.04) x10^3/uL RBC 4.97 (3.93-5.22) x10^6/uL Hgb 16.0 H (11.2-15.7) g/dL Hct 46.5 H (34.1-44.9) % MCV 93.6 (79.4-94.8) fL MCH 32.2 (25.6-32.2) pg MCHC 34.4 (32.2-35.5) g/dL RDW 13.8 (11.7-14.4) % Plt Count 146 L (182-369) x10^3/uL MPV 9.7 (9.4-12.3) fL Gran % 84.1 H (34.0-71.1) % Immature Gran % (Auto) 0.8 H (0.001-0.429) % Nucleat RBC Rel Count 0.0 (0.00-0.2) % Eos # (Auto) 0 L (0.04-0.36) x10^3/uL Immature Gran # (Auto) 0.06 H (0.001-0.031) x10^3u/L Absolute Lymphs (auto) 0.58 L (1.18-3.74) x10^3/uL Absolute Monos (auto) 0.61 (0.24-0.86) x10^3/uL Absolute Nucleated RBC 0.00 (0.00-0.012) x10^3u/L Lymphocytes % 7.4 L (19.3-51.7) % Monocytes % 7.7 (4.7-12.5) % Eosinophils % 0.0 L (0.7-5.8) % Basophils % 0.0 L (0.1-1.2) % Absolute Granulocytes 6.64 H (1.56-6.13) x10^3/uL Basophils # 0 L (0.01-0.08) x10^3/uL D-Dimer 0.66 H* (0.0-0.50) mg/L pO2/FiO2 Ratio % VBG pH (7.32-7.42) VBG pCO2 at Pat Temp (42-55) mm/Hg VBG pO2 at Pat Temp (25-40) mm/Hg VBG HCO3 (22-28) meq/L VBG O2 Sat (Simi) (95-100) VBG Base Excess (-2.0-2.0) VBG Hemoglobin VBG Carboxyhemoglobin (0.0-6.9) % T HGB POC Potassium (3.5-5.1) Sodium 133 L (135-145) mmol/L Potassium 4.2 (3.5-5.1) mmol/L Chloride 89 L (98-107) mmol/L Carbon Dioxide 31 H (22-30) mmol/L Anion Gap 16.9 H (5-15) MEQ/L BUN 36 H (7-17) mg/dL Creatinine 0.98 (0.52-1.04) mg/dL Estimated GFR 64.5 ML/MIN Glucose 117 H (74-106) mg/dL Lactic Acid (0.4-2.0) Calcium 8.6 (8.4-10.2) mg/dL Magnesium 2.5 H (1.6-2.3) mg/dL Total Bilirubin 0.90 (0.2-1.3) mg/dL AST 76 H (14-36) U/L ALT 30 (0-35) U/L Alkaline Phosphatase 92 (38-126) U/L Troponin I (0.000-0.033) ng/mL Serum Total Protein 7.7 (6.3-8.2) g/dL Albumin 4.5 (3.5-5.0) g/dL Amylase 61 (30-110) U/L Lipase 68 (23-300) U/L Influenza Type A Ag (NEGATIVE) Influenza Type B Ag (NEGATIVE) RSV (PCR) (NEGATIVE) SARS-CoV-2 (PCR) (NEGATIVE) Slides for Path Review YES 09/16/24 09/16/24 09/16/24 Range/Units 17:15 18:30 18:30 WBC (3.98-10.04) x10^3/uL RBC (3.93-5.22) x10^6/uL Hgb (11.2-15.7) g/dL Hct (34.1-44.9) % MCV (79.4-94.8) fL MCH (25.6-32.2) pg MCHC (32.2-35.5) g/dL RDW (11.7-14.4) % Plt Count (182-369) x10^3/uL MPV (9.4-12.3) fL Gran % (34.0-71.1) % Immature Gran % (Auto) (0.001-0.429) % Nucleat RBC Rel Count (0.00-0.2) % Eos # (Auto) (0.04-0.36) x10^3/uL Immature Gran # (Auto) (0.001-0.031) x10^3u/L Absolute Lymphs (auto) (1.18-3.74) x10^3/uL Absolute Monos (auto) (0.24-0.86) x10^3/uL Absolute Nucleated RBC (0.00-0.012) x10^3u/L Lymphocytes % (19.3-51.7) % Monocytes % (4.7-12.5) % Eosinophils % (0.7-5.8) % Basophils % (0.1-1.2) % Absolute Granulocytes (1.56-6.13) x10^3/uL Basophils # (0.01-0.08) x10^3/uL D-Dimer (0.0-0.50) mg/L pO2/FiO2 Ratio 21.0 % VBG pH 7.42 (7.32-7.42) VBG pCO2 at Pat Temp 43 (42-55) mm/Hg VBG pO2 at Pat Temp 31 (25-40) mm/Hg VBG HCO3 27.9 (22-28) meq/L VBG O2 Sat (Simi) 54.2 L (95-100) VBG Base Excess 2.9 H (-2.0-2.0) VBG Hemoglobin 15.3 VBG Carboxyhemoglobin 3.8 (0.0-6.9) % T HGB POC Potassium 3.7 (3.5-5.1) Sodium (135-145) mmol/L Potassium (3.5-5.1) mmol/L Chloride (98-107) mmol/L Carbon Dioxide (22-30) mmol/L Anion Gap (5-15) MEQ/L BUN (7-17) mg/dL Creatinine (0.52-1.04) mg/dL Estimated GFR ML/MIN Glucose (74-106) mg/dL Lactic Acid 2.8 H (0.4-2.0) Calcium (8.4-10.2) mg/dL Magnesium (1.6-2.3) mg/dL Total Bilirubin (0.2-1.3) mg/dL AST (14-36) U/L ALT (0-35) U/L Alkaline Phosphatase (38-126) U/L Troponin I < 0.012 (0.000-0.033) ng/mL Serum Total Protein (6.3-8.2) g/dL Albumin (3.5-5.0) g/dL Amylase (30-110) U/L Lipase (23-300) U/L Influenza Type A Ag (NEGATIVE) Influenza Type B Ag (NEGATIVE) RSV (PCR) (NEGATIVE) SARS-CoV-2 (PCR) (NEGATIVE) Slides for Path Review 09/16/24 09/16/24 09/16/24 Range/Units 18:35 20:42 21:55 WBC (3.98-10.04) x10^3/uL RBC (3.93-5.22) x10^6/uL Hgb (11.2-15.7) g/dL Hct (34.1-44.9) % MCV (79.4-94.8) fL MCH (25.6-32.2) pg MCHC (32.2-35.5) g/dL RDW (11.7-14.4) % Plt Count (182-369) x10^3/uL MPV (9.4-12.3) fL Gran % (34.0-71.1) % Immature Gran % (Auto) (0.001-0.429) % Nucleat RBC Rel Count (0.00-0.2) % Eos # (Auto) (0.04-0.36) x10^3/uL Immature Gran # (Auto) (0.001-0.031) x10^3u/L Absolute Lymphs (auto) (1.18-3.74) x10^3/uL Absolute Monos (auto) (0.24-0.86) x10^3/uL Absolute Nucleated RBC (0.00-0.012) x10^3u/L Lymphocytes % (19.3-51.7) % Monocytes % (4.7-12.5) % Eosinophils % (0.7-5.8) % Basophils % (0.1-1.2) % Absolute Granulocytes (1.56-6.13) x10^3/uL Basophils # (0.01-0.08) x10^3/uL D-Dimer (0.0-0.50) mg/L pO2/FiO2 Ratio % VBG pH (7.32-7.42) VBG pCO2 at Pat Temp (42-55) mm/Hg VBG pO2 at Pat Temp (25-40) mm/Hg VBG HCO3 (22-28) meq/L VBG O2 Sat (Simi) (95-100) VBG Base Excess (-2.0-2.0) VBG Hemoglobin VBG Carboxyhemoglobin (0.0-6.9) % T HGB POC Potassium (3.5-5.1) Sodium (135-145) mmol/L Potassium (3.5-5.1) mmol/L Chloride (98-107) mmol/L Carbon Dioxide (22-30) mmol/L Anion Gap (5-15) MEQ/L BUN (7-17) mg/dL Creatinine (0.52-1.04) mg/dL Estimated GFR ML/MIN Glucose (74-106) mg/dL Lactic Acid 1.0 (0.4-2.0) Calcium (8.4-10.2) mg/dL Magnesium (1.6-2.3) mg/dL Total Bilirubin (0.2-1.3) mg/dL AST (14-36) U/L ALT (0-35) U/L Alkaline Phosphatase (38-126) U/L Troponin I < 0.012 (0.000-0.033) ng/mL Serum Total Protein (6.3-8.2) g/dL Albumin (3.5-5.0) g/dL Amylase (30-110) U/L Lipase (23-300) U/L Influenza Type A Ag POSITIVE A (NEGATIVE) Influenza Type B Ag NEGATIVE (NEGATIVE) RSV (PCR) NEGATIVE (NEGATIVE) SARS-CoV-2 (PCR) NEGATIVE (NEGATIVE) Slides for Path Review - Radiology Impressions Radiology Exams & Impressions: Radiology Procedures Category Date Time Status CHEST 2 VIEWS (PA AND LAT) Stat Exams 09/16/24 17:48 Completed CHEST WITH CONTRAST [CT] Stat Exams 09/16/24 18:28 Completed - Other Procedures and Tests Respiratory Therapy 09/16/24 18:30 Respiratory Therapy Assessment DAILY 09/16/24 22:47 Oxygen Nasal Cannula 6 lpm 09/16/24 23:30 Incentive Spirometry UD Assessment/Plan (1) COPD exacerbation Current Visit: Yes Status: Acute Code(s): J44.1 - CHRONIC OBSTRUCTIVE PULMONARY DISEASE W (ACUTE) EXACERBATION (2) Influenza A Current Visit: Yes Status: Acute Code(s): J10.1 - FLU DUE TO OTH IDENT INFLUENZA VIRUS W OTH RESP MANIFEST (3) Hypoxia Current Visit: Yes Status: Acute Code(s): R09.02 - HYPOXEMIA Telemedicine Encounter - Telemedicine Encounter Telemedicine Encounter: The entirety of this encounter was performed via TelemedicineThis visit was performed using real-time audio and video connection between my location and thepatients locationwith the assistance of a surrogateat the patients location. Written or verbal consent was obtained from the patient/guardian to perform this visit using[employer] technology. Any patient questions regarding the telemedicine interaction were answered. Acute hypoxemic respiratory failure Due to underlying influenza A/COPD Blood gas reviewed patient is not retaining CT chest -ve for PE Currently on 2 L oxygen to keep sats more than 90% Low threshold to be declined and intubated Influenza A infection Started on Tamiflu Continue supportive therapy Continue incentive spirometry COPD exacerbation Continue steroids Continue breathing therapy/having heart Will continue ceftriaxone and azithromycin Hyponatremia seems hypovolemic hyponatremia due to feeling sick and for p.o. intake in last 3 days Will give some normal saline and recheck sodium in the morning Chronic pain syndrome Patient is a methadone I will resume it Hypothyroidism resume home levothyroxine DVT prophylaxis SCD/Lovenox CODE STATUS full Discharge planning pending clinical stability. 45 minutes radical care time provided in order to assess the clinical status that seems high probability of decline in the mid to body function. I have reviewed patient lab vitals and i maging in detail all question and concerns were addressed
[2024-09-17] MEDS ORDERED: METHADONE HCL 5 MG PO SCH (00:45)
[2024-09-17] MEDS ORDERED: NORCO 5/325 MG PO PRN (00:46)
[2024-09-17] MEDS ORDERED: DOLOPHINE 10MG Tablet ONE (01:11)
[2024-09-17] MEDS: DOLOPHINE 10MG Tablet PO SCH ×2 (01:12→08:27)
[2024-09-17] MEDS: Sodium Chloride 0.9% 1000 ML 1,000 ML IV SCH (01:13)
[2024-09-17 02:08] LABS: Hematocrit 37.8 % (34.1-44.9); Hemoglobin 12.9 g/dL (11.2-15.7); Mean Cell Volume 92.9 fL (79.4-94.8); Mean Corpuscular Hemoglobin 31.7 pg (25.6-32.2); Mean Corpuscular Hgb Concent. 34.1 g/dL (32.2-35.5); Mean Platelet Volume 9.7 fL (9.4-12.3); Platelet Count 110 x10^3/uL (182-369); Red Blood Count 4.07 x10^6/uL (3.93-5.22); Red Cell Distribution Width 13.7 % (11.7-14.4); White Blood Count 5.5 x10^3/uL (3.98-10.04)
[2024-09-17 02:19] LABS: ANION GAP 9.3 MEQ/L (5-15); Creatinine 1 0.53 mg/dL (0.52-1.04); EST GLOMERULAR FILTRATION RATE 103.2 ML/MIN; Potassium 3.7 mmol/L (3.5-5.1)
[2024-09-17 02:21] LABS: Calcium 7.3 mg/dL (8.4-10.2)
[2024-09-17] MEDS ORDERED: DUONEB 0.5-3 MG/3 ml Neb IH SCH (03:00)
[2024-09-17] MEDS ORDERED: Sterile H2O 10 ml IJ ONE ×2 (06:48→13:22)
[2024-09-17] MEDS: solu-MEDROL IV SCH (06:52)
[2024-09-17] MEDS: PULMICORT 0.5 MG/2 ML RESPULES IH SCH ×2 (07:34→18:59)
[2024-09-17] MEDS: Nicoderm CQ 21 MG TOP SCH (08:27)
[2024-09-17] MEDS ORDERED: NON-FORMULARY ITEM (Tizanidine Hcl [Tizanidine Hcl] 2 MG Capsule) PO SCH (10:00)
--- NOTE | 2024-09-17 10:07 | XRAY ---
CLINICAL HISTORY: increased oxygen demand COMPARISON: Prior X-ray dated 09/16/2024. TECHNIQUE: X-ray image of the chest obtained in AP projection. FINDINGS: Pulmonary Parenchyma: Hyperinflated bilateral lungs. Small nodular opacity in right mid zone. Prominent bilateral parahilar markings. Mild blunting of bilateral CP angles likely pleural thickening. Heart and Mediastinum: Heart size and shape are normal. No mediastinal widening or masses. No hilar or mediastinal lymphadenopathy. Bony Thorax: Spondylotic changes in thoracic spine. Bony thorax appears intact without fractures or deformities. Soft Tissues: Soft tissues overlying the chest wall are unremarkable. IMPRESSION: 1. Hyperinflated bilateral lungs likely COPD. Stable. 2. Small nodular opacity in right mid zone. Stable. 3. Prominent bilateral parahilar markings possibly bronchitis, stable. Clinical and lab correlation is advised. Electronically Signed by: Sage Le MD. (09/17/2024 10:02:51 EST)
[2024-09-17] MEDS: SYNTHROID 25 MCG PO SCH (10:17)
[2024-09-17] MEDS: Zanaflex 4 MG PO SCH (10:17)
[2024-09-17] MEDS: ROCEPHIN 1 GM / 100 ML NaCl 1 GM/100 ML IVPB IV SCH (10:17)
[2024-09-17] MEDS: ENOXAPARIN SODIUM SQ SCH (10:17)
[2024-09-17] MEDS: Tamiflu 75MG Capsule PO SCH (10:17)
[2024-09-17] MEDS: Zithromax 500 MG/ 250 ML NaCl Premix 500 MG/250 ML IVPB IV SCH (17:06)
[2024-09-17] MEDS: solu-MEDROL 40 MG, Sterile H2O 10 ml 1 ML IV SCH (21:01)
[2024-09-18 06:15] LABS: Hematocrit 37.5 % (34.1-44.9); Hemoglobin 12.6 g/dL (11.2-15.7); Mean Cell Volume 94.2 fL (79.4-94.8); Mean Corpuscular Hemoglobin 31.7 pg (25.6-32.2); Mean Corpuscular Hgb Concent. 33.6 g/dL (32.2-35.5); Mean Platelet Volume 9.5 fL (9.4-12.3); Platelet Count 124 x10^3/uL (182-369); Red Blood Count 3.98 x10^6/uL (3.93-5.22); Red Cell Distribution Width 14.2 % (11.7-14.4); White Blood Count 5.4 x10^3/uL (3.98-10.04)
[2024-09-18 06:41] LABS: ALBUMIN 3.1 g/dL (3.5-5.0); ANION GAP 7.2 MEQ/L (5-15); BILIRUBIN,TOTAL 0.4 mg/dL (0.2-1.3); Creatinine 1 0.47 mg/dL (0.52-1.04); EST GLOMERULAR FILTRATION RATE 106.2 ML/MIN; Potassium 3.4 mmol/L (3.5-5.1); Total Protein 5.7 g/dL (6.3-8.2)
[2024-09-18] MEDS: Klor Con PO ONE (07:50)
--- NOTE | 2024-09-18 08:31 | PCM.NOTE ---
Date and Time: 09/18/24823 Subjective Assessment: Ms. Robbins is a 64-year-old female with a medical history significant for chronic pain syndrome on methadone, hypothyroidism, and COPD (not on home oxygen), who presented to the ER on 09/17/24 with a 3-day history of shortness of breath, without significant cough, congestion, or fever. She denied chest pain, leg swelling, orthopnea, or paroxysmal nocturnal dyspnea (PND). Upon arrival, she was desaturating and was started on 8L oxygen to maintain oxygen saturation above 80%. Labs were largely unremarkable, though sodium was 133 and bicarbonate was elevated. Chest X-ray showed chronic emphysematous changes, and a CT chest ruled out pulmonary embolism, revealing only chronic emphysema and left lung atelectasis. The patient tested positive for Influenza A. She was treated with steroids, breathing therapy, and admitted for further management. Today, Ms. Robbins reports feeling significantly better. She currently requires 6L via nasal cannula and is maintaining 96% oxygen saturation, with her baseline being room air. She has shown notable improvement since yesterday. 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 Pineda on an outpatient basis. The plan is to continue Tamiflu for Influenza A, azithromycin, ceftriaxone, Pulmicort, DuoNebs, and steroids for COPD exacerbation. Her potassium level was 3.4, replacement was given, and a recheck will be done at 1400. Blood cultures x2 were negative, and the sputum culture is still pending. She will likely need 1-2 more days of treatment. Will qualify for home O2 at time of discharge. She reports everyone at home is ill with the flu as well. She denies any further concerns at this time. - Review of Systems Constitutional: No Fever, No Chills Eyes: No Symptoms Ears, Nose, & Throat: No Symptoms Respiratory: Cough, Short Of Breath, Wheezing Cardiac: No Chest Pain, No Edema, No Syncope Abdominal/Gastrointestinal: No Abdominal Pain, No Nausea, No Vomiting, No Diarrhea Genitourinary Symptoms: No Dysuria Musculoskeletal: No Back Pain, No Neck Pain Skin: No Rash Neurological: No Dizziness, No Focal Weakness, No Sensory Changes Psychological: No Symptoms Endocrine: No Symptoms Hematologic/Lymphatic: No Symptoms Immunological/Allergic: No Symptoms Objective Exam General Appearance: no apparent distress, alert, cachetic Neurologic Exam: alert, 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, cooperative, normal mood/affect, nml cerebellar function, sensation nml, No motor deficits Skin Exam: normal color, warm, dry Eye Exam: PERRL, EOMI, eyes nml inspection Ears, Nose, Throat Exam: normal ENT inspection, pharynx normal, moist mucous membranes Neck Exam: normal inspection, non-tender, supple, full range of motion Respiratory Exam: wheezing, other (increased SOB with activity), No respiratory distress Cardiovascular Exam: regular rate/rhythm, normal heart sounds Gastrointestinal/Abdomen Exam: soft, No tenderness, No mass Extremity Exam: normal inspection, normal range of motion Back Exam: normal inspection, normal range of motion, No CVA tenderness, No vertebral tenderness Pelvic Exam: deferred Rectal Exam: deferred Objective Data Vital Signs: Vital Signs - 24 hr Temp Pulse Resp BP Pulse Ox 09/18/24 08:00 98.0 F 92 H 17 134/77 90 L 09/18/24 07:31 75 18 96 09/18/24 04:00 97.3 F 73 12 121/75 96 09/18/24 02:17 79 18 92 L 09/18/24 00:00 97.8 F 90 18 138/69 90 L 09/17/24 23:00 87 16 91 L 09/17/24 20:00 98.3 F 88 14 129/69 91 L 09/17/24 19:25 74 20 93 L 09/17/24 16:00 97.8 F 83 16 121/63 98 09/17/24 15:06 77 18 97 09/17/24 11:26 97.9 F 95 H 14 103/55 95 09/17/24 10:55 75 20 97 Pain Assessment - Last Documented Pain Intensity 5 Intake and Output: Intake & Output 09/15/24 09/16/24 09/17/24 09/18/24 11:59 11:59 11:59 11:59 Intake Total 240 982 Output Total 650 550 Balance -410 432 Weight 42.1 kg Lab Results: Lab Results-Last 24 Hours 09/18/24 09/18/24 Range/Units 06:10 06:10 WBC 5.4 (3.98-10.04) x10^3/uL RBC 3.98 (3.93-5.22) x10^6/uL Hgb 12.6 (11.2-15.7) g/dL Hct 37.5 (34.1-44.9) % MCV 94.2 (79.4-94.8) fL MCH 31.7 (25.6-32.2) pg MCHC 33.6 (32.2-35.5) g/dL RDW 14.2 (11.7-14.4) % Plt Count 124 L (182-369) x10^3/uL MPV 9.5 (9.4-12.3) fL Sodium 139 (135-145) mmol/L Potassium 3.4 L (3.5-5.1) mmol/L Chloride 103 (98-107) mmol/L Carbon Dioxide 33 H (22-30) mmol/L Anion Gap 7.2 (5-15) MEQ/L BUN 13 (7-17) mg/dL Creatinine 0.47 L (0.52-1.04) mg/dL Estimated GFR 106.2 ML/MIN Glucose 182 H (74-106) mg/dL Calcium 8.0 L (8.4-10.2) mg/dL Total Bilirubin 0.40 (0.2-1.3) mg/dL AST 47 H (14-36) U/L ALT 19 (0-35) U/L Alkaline Phosphatase 60 (38-126) U/L Serum Total Protein 5.7 L (6.3-8.2) g/dL Albumin 3.1 L (3.5-5.0) g/dL Radiology Exams: Radiology Procedures Category Date Time Status CHEST 1 VIEW (PORTABLE) Stat Exams 09/17/24 08:02 Completed CHEST 2 VIEWS (PA AND LAT) Stat Exams 09/16/24 17:48 Completed CHEST WITH CONTRAST [CT] Stat Exams 09/16/24 18:28 Completed Multi-Disciplinary Progress Notes: Multi-Disciplinary Progress Notes 09/17/24 17:23 Respiratory Note by Lauren Jarquin WEANED PT'S OXYGEN FROM 12L OXYMIZER DOWN TO 4L OXYMIZER T/O THE DAY. SATS RUNNING 94-97%. Initialized on 09/17/24 17:23 - END OF NOTE Assessment/Plan (1) COPD exacerbation Current Visit: Yes Status: Acute Assessment & Plan: - Continue steroids, pulmicort, duonebs - Ceftriaxone and azithromycin IV - CBC. CMP reviewed - Sputum pending - BC x2 negative - On 6LNC 96%- baseline room air - Will need appointment with Dr. Pineda- pulm OP at d/c Code(s): J44.1 - CHRONIC OBSTRUCTIVE PULMONARY DISEASE W (ACUTE) EXACERBATION (2) Influenza A Current Visit: Yes Status: Acute Assessment & Plan: - Tamiflu - isolation Code(s): J10.1 - FLU DUE TO OTH IDENT INFLUENZA VIRUS W OTH RESP MANIFEST (3) Hypoxia Current Visit: Yes Status: Acute Assessment & Plan: - Due to underlying influenza A/COPD - Blood gas reviewed patient is not retaining- on admission - CT chest -ve for PE - Currently on 6 L oxygen- O2 96% - Low threshold to be declined and intubated Code(s): R09.02 - HYPOXEMIA (4) Thrombocytopenia Current Visit: Yes Status: Acute Assessment & Plan: - PLT 124- trend - Likely will need OP f/u at d/c with hematology (5) Hypokalemia Current Visit: Yes Status: Acute Assessment & Plan: - K+ 3.4- replaced- recheck at 1400 Code(s): E87.6 - HYPOKALEMIA (6) D-dimer, elevated Current Visit: Yes Status: Acute Assessment & Plan: - D-dimer 0.66 - CT negative for PE Code(s): R79.89 - OTHER SPECIFIED ABNORMAL FINDINGS OF BLOOD CHEMISTRY (7) Underweight (BMI < 18.5) Current Visit: Yes Status: Chronic Assessment & Plan: - Nutrition consult - 2:2 to COPD? - Ensure high protein started with each meal Code(s): R63.6 - UNDERWEIGHT; Z68.1 - BODY MASS INDEX [BMI] 19.9 OR LESS, ADULT (8) Smoker Current Visit: Yes Status: Chronic Assessment & Plan: - nicotine patch - advised cessation Code(s): F17.200 - NICOTINE DEPENDENCE, UNSPECIFIED, UNCOMPLICATED (9) Hyponatremia Current Visit: Yes Status: Resolved Assessment & Plan: - resolved Code(s): E87.1 - HYPO-OSMOLALITY AND HYPONATREMIA (10) Hypothyroidism Current Visit: Yes Status: Chronic Assessment & Plan: - Continue synthroid Code(s): E03.9 - HYPOTHYROIDISM, UNSPECIFIED (11) Chronic pain syndrome Current Visit: Yes Status: Chronic Assessment & Plan: - Continue Methadone for chronic back and hip pain VTE: Lovenox PPI: Protonix Next of KIN: Sibling, Naty Knutson [phone] D/C plan: 1-2 days Code status: Full Code(s): G89.4 - CHRONIC PAIN SYNDROME
[2024-09-18] MEDS: Protonix 20MG Tablet PO SCH (09:40)
[2024-09-18 15:00] LABS: MAGNESIUM 2.4 mg/dL (1.6-2.3); Potassium 3.7 mmol/L (3.5-5.1)
[2024-09-19 05:07] LABS: Hematocrit 35.8 % (34.1-44.9); Hemoglobin 11.8 g/dL (11.2-15.7); Mean Cell Volume 96.5 fL (79.4-94.8); Mean Corpuscular Hemoglobin 31.8 pg (25.6-32.2); Mean Platelet Volume 9.8 fL (9.4-12.3); Platelet Count 147 x10^3/uL (182-369); Red Blood Count 3.71 x10^6/uL (3.93-5.22); Red Cell Distribution Width 14.5 % (11.7-14.4)
[2024-09-19 05:20] LABS: ALBUMIN 3.1 g/dL (3.5-5.0); ANION GAP 8.5 MEQ/L (5-15); BILIRUBIN,TOTAL 0.4 mg/dL (0.2-1.3); Calcium 8.3 mg/dL (8.4-10.2); Creatinine 1 0.5 mg/dL (0.52-1.04); EST GLOMERULAR FILTRATION RATE 104.7 ML/MIN; MAGNESIUM 2.4 mg/dL (1.6-2.3); Potassium 4.1 mmol/L (3.5-5.1); Total Protein 5.6 g/dL (6.3-8.2)
--- NOTE | 2024-09-19 09:44 | PCM.DS ---
Discharge Summary Date of Admission: 09/16/24 22:43 Date of Discharge: 09/19/24 Admitting Physician: MORRIS APPLE MD Consults: Consults on Case 09/18/24 08:34 Nutritional Consult ROUTINE Primary Care Provider: DISHA MACKEY JR Allergies Allergies morphine Allergy (Severe, Verified 07/23/23 12:43) Vomiting Penicillins Allergy (Severe, Verified 07/23/23 12:43) convulsions Hospital Summary - Hospital Course Hospital Course: 09/18/24 Ms. Robbins is a 64-year-old female with a medical history significant for chronic pain syndrome on methadone, hypothyroidism, and COPD (not on home oxygen), who presented to the ER on 09/17/24 with a 3-day history of shortness of breath, without significant cough, congestion, or fever. She denied chest pain, leg swelling, orthopnea, or paroxysmal nocturnal dyspnea (PND). Upon arrival, she was desaturating and was started on 8L oxygen to maintain oxygen saturation above 80%. Labs were largely unremarkable, though sodium was 133 and bicarbonate was elevated. Chest X-ray showed chronic emphysematous changes, and a CT chest ruled out pulmonary embolism, revealing only chronic emphysema and left lung atelectasis. The patient tested positive for Influenza A. She was treated with steroids, breathing therapy, and admitted for further management. Today, Ms. Robbins reports feeling significantly better. She currently requires 6L via nasal cannula and is maintaining 96% oxygen saturation, with her baseline being room air. She has shown notable improvement since yesterday. 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 Pineda on an outpatient basis. The plan is to continue Tamiflu for Influenza A, azithromycin, ceftriaxone, Pulmicort, DuoNebs, and steroids for COPD exacerbation. Her potassium level was 3.4, replacement was given, and a recheck will be done at 1400. Blood cultures x2 were negative, and the sputum culture is still pending. She will likely need 1-2 more days of treatment. Will qualify for home O2 at time of discharge. She reports everyone at home is ill with the flu as well. She denies any further concerns at this time. 09/19/24 Pt resting in bed. She is feeling much better today she reports. Lung sounds are clear. She is down to 4LNC 93%- Rt working on weaning. RT to eval for home O2. Awaiting PT eval for home needs as she has activity intolerance. Corrected Ca+ 8.6. Roller Stitcher consulted for BMI < 18. Advised pt to continue ensure high protein OP. Continue tamiflu. Continue antibiotics and steroids OP. Pt to f/u with Pulm and PCP OP. - Vitals & Intake/Output Vital Signs: Vital Signs Temperature 98.1 F 09/19/24 08:00 Pulse Rate 87 09/19/24 08:00 Respiratory Rate 16 09/19/24 08:00 Blood Pressure 139/73 09/19/24 08:00 O2 Sat by Pulse Oximetry 90 L 09/19/24 08:00 Intake & Output: Intake & Output 09/16/24 09/17/24 09/18/24 09/19/24 11:59 11:59 11:59 11:59 Intake Total 240 1462 587 Output Total 650 550 300 Balance -410 912 287 Weight 42.1 kg - Lab Result Diagrams: 09/19/24 04:45 09/19/24 04:45 Lab Results-Last 24 Hrs: Lab Results-Last 24 Hours 09/18/24 09/19/24 09/19/24 Range/Units 14:40 04:45 04:45 WBC 10.0 (3.98-10.04) x10^3/uL RBC 3.71 L (3.93-5.22) x10^6/uL Hgb 11.8 (11.2-15.7) g/dL Hct 35.8 (34.1-44.9) % MCV 96.5 H (79.4-94.8) fL MCH 31.8 (25.6-32.2) pg MCHC 33.0 (32.2-35.5) g/dL RDW 14.5 H (11.7-14.4) % Plt Count 147 L (182-369) x10^3/uL MPV 9.8 (9.4-12.3) fL Sodium 141 (135-145) mmol/L Potassium 3.7 4.1 (3.5-5.1) mmol/L Chloride 105 (98-107) mmol/L Carbon Dioxide 32 H (22-30) mmol/L Anion Gap 8.5 (5-15) MEQ/L BUN 11 (7-17) mg/dL Creatinine 0.50 L (0.52-1.04) mg/dL Estimated GFR 104.7 ML/MIN Glucose 117 H (74-106) mg/dL Calcium 8.3 L (8.4-10.2) mg/dL Magnesium 2.4 H 2.4 H (1.6-2.3) mg/dL Total Bilirubin 0.40 (0.2-1.3) mg/dL AST 40 H (14-36) U/L ALT 21 (0-35) U/L Alkaline Phosphatase 53 (38-126) U/L Serum Total Protein 5.6 L (6.3-8.2) g/dL Albumin 3.1 L (3.5-5.0) g/dL Micro Results-Entire Visit: Microbiology 09/16/24 18:28 Blood Culture - Preliminary Blood 09/16/24 18:33 Blood Culture - Preliminary Blood - Procedures and Test Procedures and Tests throughout Hospitalization: Therapy Orders & Screens 09/16/24 18:30 Respiratory Therapy Assessment DAILY Comment: 09/16/24 22:47 Oxygen Nasal Cannula 6 lpm Comment: Respiratory Therapy Consult ONCE Comment: Reason For Exam: 09/16/24 23:30 Incentive Spirometry UD Comment: 09/17/24 02:07 Smoking Cessation Education ONCE Comment: Diagnosis: Shortness of breath Smoking Status: Current every day smoker How long have you smoked: 30 yrs Have you smoked in the past 12 months: Yes Approximately how many cigarettes per day: <1 pack/day but >1/2 pack/day Do you dip or chew tobacco: No 09/17/24 07:46 RT Miscellaneous Order ROUTINE Comment: Physician Instructions: Baseline RA Reason For Exam: wean O2 PRN keep sat > 92% Diagnosis: Shortness of breath 09/18/24 08:52 PT Eval & Treat (MD Order) ONCE Reason for Eval:: Increased SOB with activity, activity intolerance, home needs Diagnosis: Shortness of breath 09/19/24 07:27 RT Miscellaneous Order ROUTINE Comment: Physician Instructions: baseline RA Reason For Exam: eval for home O2 Diagnosis: Shortness of breath Discharge Exam General Appearance: no apparent distress, alert, cachetic, thin Neurologic Exam: alert, 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, cooperative, normal mood/affect, nml cerebellar function, sensation nml, No motor deficits Eye Exam: PERRL, EOMI, eyes nml inspection Ears, Nose, Throat Exam: normal ENT inspection, pharynx normal, moist mucous membranes Neck Exam: normal inspection, non-tender, supple, full range of motion Respiratory Exam: normal breath sounds, lungs clear, No respiratory distress Cardiovascular Exam: regular rate/rhythm, normal heart sounds Gastrointestinal/Abdomen Exam: soft, No tenderness, No mass Pelvic Exam: deferred Rectal Exam: deferred Back Exam: normal inspection, normal range of motion, No CVA tenderness, No vertebral tenderness Extremity Exam: normal inspection, normal range of motion Skin Exam: normal color, warm, dry Final Diagnosis/Problem List - Final Discharge Diagnosis/Problem (1) COPD exacerbation Current Visit: Yes Status: Acute Code(s): J44.1 - CHRONIC OBSTRUCTIVE PULMONARY DISEASE W (ACUTE) EXACERBATION (2) Influenza A Current Visit: Yes Status: Acute Code(s): J10.1 - FLU DUE TO OTH IDENT INFLUENZA VIRUS W OTH RESP MANIFEST (3) Hypoxia Current Visit: Yes Status: Acute Code(s): R09.02 - HYPOXEMIA (4) Thrombocytopenia Current Visit: Yes Status: Acute (5) Hypokalemia Current Visit: Yes Status: Acute Code(s): E87.6 - HYPOKALEMIA (6) D-dimer, elevated Current Visit: Yes Status: Acute Code(s): R79.89 - OTHER SPECIFIED ABNORMAL FINDINGS OF BLOOD CHEMISTRY (7) Underweight (BMI < 18.5) Current Visit: Yes Status: Chronic Code(s): R63.6 - UNDERWEIGHT; Z68.1 - BODY MASS INDEX [BMI] 19.9 OR LESS, ADULT (8) Smoker Current Visit: Yes Status: Chronic Code(s): F17.200 - NICOTINE DEPENDENCE, UNSPECIFIED, UNCOMPLICATED (9) Hyponatremia Current Visit: Yes Status: Resolved Code(s): E87.1 - HYPO-OSMOLALITY AND HYPONATREMIA (10) Hypothyroidism Current Visit: Yes Status: Chronic Code(s): E03.9 - HYPOTHYROIDISM, UNSPECIFIED (11) Chronic pain syndrome Current Visit: Yes Status: Chronic Assessment & Plan: (1) COPD exacerbation Current Visit: Yes Status: Acute Assessment & Plan: - Continue steroids, pulmicort, duonebs - Ceftriaxone and azithromycin IV - CBC. CMP reviewed - Sputum pending - BC x2 negative - On 6LNC 96%- baseline room air - Will need appointment with Dr. Pineda- pulm OP at d/c Code(s): J44.1 - CHRONIC OBSTRUCTIVE PULMONARY DISEASE W (ACUTE) EXACERBATION (2) Influenza A Current Visit: Yes Status: Acute Assessment & Plan: - Tamiflu - isolation Code(s): J10.1 - FLU DUE TO OTH IDENT INFLUENZA VIRUS W OTH RESP MANIFEST (3) Hypoxia Current Visit: Yes Status: Acute Assessment & Plan: - Due to underlying influenza A/COPD - Blood gas reviewed patient is not retaining- on admission - CT chest -ve for PE - Currently on 6 L oxygen- O2 96% - Low threshold to be declined and intubated Code(s): R09.02 - HYPOXEMIA (4) Thrombocytopenia Current Visit: Yes Status: Acute Assessment & Plan: - PLT 124- trend - Likely will need OP f/u at d/c with hematology 09/19 - PLT 147- - refer to hemoc OP (5) Hypokalemia Current Visit: Yes Status: Acute Assessment & Plan: - K+ 3.4- replaced- recheck at 1400- resolved 09/19 - resolved Code(s): E87.6 - HYPOKALEMIA (6) D-dimer, elevated Current Visit: Yes Status: Acute Assessment & Plan: - D-dimer 0.66 - CT negative for PE Code(s): R79.89 - OTHER SPECIFIED ABNORMAL FINDINGS OF BLOOD CHEMISTRY (7) Underweight (BMI < 18.5) Current Visit: Yes Status: Chronic Assessment & Plan: - Nutrition consult - 2:2 to COPD? - Ensure high protein started with each meal Code(s): R63.6 - UNDERWEIGHT; Z68.1 - BODY MASS INDEX [BMI] 19.9 OR LESS, ADULT (8) Smoker Current Visit: Yes Status: Chronic Assessment & Plan: - nicotine patch - advised cessation Code(s): F17.200 - NICOTINE DEPENDENCE, UNSPECIFIED, UNCOMPLICATED (9) Hyponatremia Current Visit: Yes Status: Resolved Assessment & Plan: - resolved Code(s): E87.1 - HYPO-OSMOLALITY AND HYPONATREMIA (10) Hypothyroidism Current Visit: Yes Status: Chronic Assessment & Plan: - Continue synthroid Code(s): E03.9 - HYPOTHYROIDISM, UNSPECIFIED (11) Chronic pain syndrome Current Visit: Yes Status: Chronic Assessment & Plan: - Continue Methadone for chronic back and hip pain Code(s): G89.4 - CHRONIC PAIN SYNDROME - Discharge Discharge Date: 09/19/24 Disposition: Home, Self-Care Condition: Stable Prescriptions: New Oseltamivir 75 mg [Tamiflu 75MG Capsule] 75 mg PO BID 3 Days #6 cap Prednisone 20 mg [Deltasone 20 mg] 20 mg PO BID 5 Days #10 tablet Continue Levothyroxine Sodium 25 Mcg [Synthroid 25 Mcg] 25 mcg PO DAILY Methadone HCl 5 mg PO UD Tizanidine HCl 2 mg PO TID Follow up with: DISHA MACKEY JR [Primary Care Provider] -
--- NOTE | 2024-09-19 12:00 | PCM.NOTE ---
Date and Time: 09/19/24 1157 Subjective Assessment: 09/18/24 Ms. Robbins is a 64-year-old female with a medical history significant for chronic pain syndrome on methadone, hypothyroidism, and COPD (not on home oxygen), who presented to the ER on 09/17/24 with a 3-day history of shortness of breath, without significant cough, congestion, or fever. She denied chest pain, leg swelling, orthopnea, or paroxysmal nocturnal dyspnea (PND). Upon arrival, she was desaturating and was started on 8L oxygen to maintain oxygen saturation above 80%. Labs were largely unremarkable, though sodium was 133 and bicarbonate was elevated. Chest X-ray showed chronic emphysematous changes, and a CT chest ruled out pulmonary embolism, revealing only chronic emphysema and left lung atelectasis. The patient tested positive for Influenza A. She was treated with steroids, breathing therapy, and admitted for further management. Today, Ms. Robbins reports feeling significantly better. She currently requires 6L via nasal cannula and is maintaining 96% oxygen saturation, with her baseline being room air. She has shown notable improvement since yesterday. 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 Pineda on an outpatient basis. The plan is to continue Tamiflu for Influenza A, azithromycin, ceftriaxone, Pulmicort, DuoNebs, and steroids for COPD exacerbation. Her potassium level was 3.4, replacement was given, and a recheck will be done at 1400. Blood cultures x2 were negative, and the sputum culture is still pending. She will likely need 1-2 more days of treatment. Will qualify for home O2 at time of discharge. She reports everyone at home is ill with the flu as well. She denies any further concerns at this time. 09/19/24 Pt resting in bed. She is feeling much better today she reports. Lung sounds are clear. She is down to 4LNC 93%- RT working on weaning. RT to eval for home O2. Awaiting PT eval for home needs as she has activity intolerance. Corrected Ca+ 8.6. Process Improvement Consultant consulted for BMI < 18. Advised pt to continue ensure high protein OP. Continue tamiflu. Continue antibiotics and steroids OP. Pt to f/u with Pulm and PCP OP. - Review of Systems Constitutional: No Fever, No Chills Eyes: No Symptoms Ears, Nose, & Throat: No Symptoms Respiratory: Short Of Breath, No Cough Cardiac: No Chest Pain, No Edema, No Syncope Abdominal/Gastrointestinal: No Abdominal Pain, No Nausea, No Vomiting, No Diarrhea Genitourinary Symptoms: No Dysuria Musculoskeletal: No Back Pain, No Neck Pain Skin: No Rash Neurological: No Dizziness, No Focal Weakness, No Sensory Changes Psychological: No Symptoms Endocrine: No Symptoms Hematologic/Lymphatic: No Symptoms Immunological/Allergic: No Symptoms Objective Exam General Appearance: no apparent distress, alert, cachetic, thin Neurologic Exam: alert, 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, cooperative, normal mood/affect, nml cerebellar function, sensation nml, No motor deficits Skin Exam: normal color, warm, dry Eye Exam: PERRL, EOMI, eyes nml inspection Ears, Nose, Throat Exam: normal ENT inspection, pharynx normal, moist mucous membranes Neck Exam: normal inspection, non-tender, supple, full range of motion Respiratory Exam: normal breath sounds, lungs clear, No respiratory distress Cardiovascular Exam: regular rate/rhythm, normal heart sounds Gastrointestinal/Abdomen Exam: soft, No tenderness, No mass Extremity Exam: normal inspection, normal range of motion Back Exam: normal inspection, normal range of motion, No CVA tenderness, No vertebral tenderness Pelvic Exam: deferred Rectal Exam: deferred Objective Data Vital Signs: Vital Signs - 24 hr Temp Pulse Resp BP Pulse Ox 09/19/24 11:39 84 16 145/67 91 L 09/19/24 10:27 82 18 92 L 09/19/24 08:00 98.1 F 87 16 139/73 90 L 09/19/24 06:58 65 18 93 L 09/19/24 04:00 98.1 F 95 H 20 140/78 93 L 09/19/24 00:00 98.6 F 95 H 18 113/68 96 09/18/24 22:44 91 H 20 90 L 09/18/24 20:00 98.3 F 97 H 19 140/81 92 L 09/18/24 19:01 87 18 92 L 09/18/24 16:00 97.9 F 82 23 136/63 85 L 09/18/24 14:54 90 24 85 L 09/18/24 12:00 97.3 F 79 16 115/59 90 L Pain Assessment - Last Documented Pain Intensity 3 Intake and Output: Intake & Output 09/16/24 09/17/24 09/18/24 09/19/24 11:59 11:59 11:59 11:59 Intake Total 240 1462 1067 Output Total 650 550 500 Balance -410 912 567 Weight 42.1 kg Lab Results: Lab Results-Last 24 Hours 09/18/24 09/19/24 09/19/24 Range/Units 14:40 04:45 04:45 WBC 10.0 (3.98-10.04) x10^3/uL RBC 3.71 L (3.93-5.22) x10^6/uL Hgb 11.8 (11.2-15.7) g/dL Hct 35.8 (34.1-44.9) % MCV 96.5 H (79.4-94.8) fL MCH 31.8 (25.6-32.2) pg MCHC 33.0 (32.2-35.5) g/dL RDW 14.5 H (11.7-14.4) % Plt Count 147 L (182-369) x10^3/uL MPV 9.8 (9.4-12.3) fL Sodium 141 (135-145) mmol/L Potassium 3.7 4.1 (3.5-5.1) mmol/L Chloride 105 (98-107) mmol/L Carbon Dioxide 32 H (22-30) mmol/L Anion Gap 8.5 (5-15) MEQ/L BUN 11 (7-17) mg/dL Creatinine 0.50 L (0.52-1.04) mg/dL Estimated GFR 104.7 ML/MIN Glucose 117 H (74-106) mg/dL Calcium 8.3 L (8.4-10.2) mg/dL Magnesium 2.4 H 2.4 H (1.6-2.3) mg/dL Total Bilirubin 0.40 (0.2-1.3) mg/dL AST 40 H (14-36) U/L ALT 21 (0-35) U/L Alkaline Phosphatase 53 (38-126) U/L Serum Total Protein 5.6 L (6.3-8.2) g/dL Albumin 3.1 L (3.5-5.0) g/dL Multi-Disciplinary Progress Notes: Multi-Disciplinary Progress Notes 09/19/24 08:13 Respiratory Note by Loan Brown PT'S O2 SAT ON 3LPM VIA NASAL CANNULA WHILE AT REST WAS 88%. OXYGEN INCREASED TO 4LPM VIA NASAL CANNULA. O2 SAT INCREASED TO 90%. Initialized on 09/19/24 08:13 - END OF NOTE Assessment/Plan (1) COPD exacerbation Current Visit: Yes Status: Acute Code(s): J44.1 - CHRONIC OBSTRUCTIVE PULMONARY DISEASE W (ACUTE) EXACERBATION (2) Influenza A Current Visit: Yes Status: Acute Code(s): J10.1 - FLU DUE TO OTH IDENT INFLUENZA VIRUS W OTH RESP MANIFEST (3) Hypoxia Current Visit: Yes Status: Acute Code(s): R09.02 - HYPOXEMIA (4) Thrombocytopenia Current Visit: Yes Status: Acute (5) Hypokalemia Current Visit: Yes Status: Acute Code(s): E87.6 - HYPOKALEMIA (6) D-dimer, elevated Current Visit: Yes Status: Acute Code(s): R79.89 - OTHER SPECIFIED ABNORMAL FINDINGS OF BLOOD CHEMISTRY (7) Underweight (BMI < 18.5) Current Visit: Yes Status: Chronic Code(s): R63.6 - UNDERWEIGHT; Z68.1 - BODY MASS INDEX [BMI] 19.9 OR LESS, ADULT (8) Smoker Current Visit: Yes Status: Chronic Code(s): F17.200 - NICOTINE DEPENDENCE, UNSPECIFIED, UNCOMPLICATED (9) Hyponatremia Current Visit: Yes Status: Resolved Code(s): E87.1 - HYPO-OSMOLALITY AND HYPONATREMIA (10) Hypothyroidism Current Visit: Yes Status: Chronic Code(s): E03.9 - HYPOTHYROIDISM, UNSPECIFIED (11) Chronic pain syndrome Current Visit: Yes Status: Chronic Assessment & Plan: (1) COPD exacerbation Current Visit: Yes Status: Acute Assessment & Plan: - Continue steroids, pulmicort, duonebs - Ceftriaxone and azithromycin IV - CBC. CMP reviewed - Sputum pending - BC x2 negative - On 6LNC 96%- baseline room air - Will need appointment with Dr. Pineda- pulm OP at d/c Code(s): J44.1 - CHRONIC OBSTRUCTIVE PULMONARY DISEASE W (ACUTE) EXACERBATION (2) Influenza A Current Visit: Yes Status: Acute Assessment & Plan: - Tamiflu - isolation Code(s): J10.1 - FLU DUE TO OTH IDENT INFLUENZA VIRUS W OTH RESP MANIFEST (3) Hypoxia Current Visit: Yes Status: Acute Assessment & Plan: - Due to underlying influenza A/COPD - Blood gas reviewed patient is not retaining- on admission - CT chest -ve for PE - Currently on 6 L oxygen- O2 96% - Low threshold to be declined and intubated 09/19 - Will need rehab vs. swing bed. Code(s): R09.02 - HYPOXEMIA (4) Thrombocytopenia Current Visit: Yes Status: Acute Assessment & Plan: - PLT 124- trend - Likely will need OP f/u at d/c with hematology 09/19 - PLT 147- - refer to hemoc OP (5) Hypokalemia Current Visit: Yes Status: Acute Assessment & Plan: - K+ 3.4- replaced- recheck at 1400- resolved 09/19 - resolved Code(s): E87.6 - HYPOKALEMIA (6) D-dimer, elevated Current Visit: Yes Status: Acute Assessment & Plan: - D-dimer 0.66 - CT negative for PE Code(s): R79.89 - OTHER SPECIFIED ABNORMAL FINDINGS OF BLOOD CHEMISTRY (7) Underweight (BMI < 18.5) Current Visit: Yes Status: Chronic Assessment & Plan: - Nutrition consult - 2:2 to COPD? - Ensure high protein started with each meal Code(s): R63.6 - UNDERWEIGHT; Z68.1 - BODY MASS INDEX [BMI] 19.9 OR LESS, ADULT (8) Smoker Current Visit: Yes Status: Chronic Assessment & Plan: - nicotine patch - advised cessation Code(s): F17.200 - NICOTINE DEPENDENCE, UNSPECIFIED, UNCOMPLICATED (9) Hyponatremia Current Visit: Yes Status: Resolved Assessment & Plan: - resolved Code(s): E87.1 - HYPO-OSMOLALITY AND HYPONATREMIA (10) Hypothyroidism Current Visit: Yes Status: Chronic Assessment & Plan: - Continue synthroid Code(s): E03.9 - HYPOTHYROIDISM, UNSPECIFIED (11) Chronic pain syndrome Current Visit: Yes Status: Chronic Assessment & Plan: - Continue Methadone for chronic back and hip pain Code(s): G89.4 - CHRONIC PAIN SYNDROME VTE: Lovenox PPI: Protonix Next of KIN: Naty Marques [phone] D/C plan: 1-2 days Code status: Full Code(s): G89.4 - CHRONIC PAIN SYNDROME Code(s): G89.4 - CHRONIC PAIN SYNDROME
[2024-09-20 05:11] LABS: Hematocrit 35.6 % (34.1-44.9); Hemoglobin 11.6 g/dL (11.2-15.7); Mean Cell Volume 96.2 fL (79.4-94.8); Mean Corpuscular Hemoglobin 31.4 pg (25.6-32.2); Mean Corpuscular Hgb Concent. 32.6 g/dL (32.2-35.5); Mean Platelet Volume 9.6 fL (9.4-12.3); Platelet Count 159 x10^3/uL (182-369); Red Cell Distribution Width 14.4 % (11.7-14.4); White Blood Count 8.3 x10^3/uL (3.98-10.04)
[2024-09-20 05:32] LABS: ALBUMIN 3.1 g/dL (3.5-5.0); ANION GAP 7.8 MEQ/L (5-15); BILIRUBIN,TOTAL 0.6 mg/dL (0.2-1.3); Calcium 8.5 mg/dL (8.4-10.2); Creatinine 1 0.49 mg/dL (0.52-1.04); EST GLOMERULAR FILTRATION RATE 105.2 ML/MIN; Potassium 4.6 mmol/L (3.5-5.1); Total Protein 5.5 g/dL (6.3-8.2)
[2024-09-20 09:03] VITALS: BP 161/90; PULSE 77; TEMP 97.6
[2024-09-20 11:21] VITALS: RESP 20; O2SAT 88
--- NOTE | 2024-09-20 12:28 | PCM.DS ---
Discharge Summary Date of Admission: 09/17/24 07:00 Date of Discharge: 09/20/24 Admitting Physician: MORRIS APPLE MD Consults: Consults on Case 09/18/24 08:34 Nutritional Consult ROUTINE Primary Care Provider: DISHA MACKEY JR Allergies Allergies morphine Allergy (Severe, Verified 07/23/23 12:43) Vomiting Penicillins Allergy (Severe, Verified 07/23/23 12:43) convulsions Hospital Summary - Hospital Course Hospital Course: 09/18/24 Ms. Robbins is a 64-year-old female with a medical history significant for chronic pain syndrome on methadone, hypothyroidism, and COPD (not on home oxygen), who presented to the ER on 09/17/24 with a 3-day history of shortness of breath, without significant cough, congestion, or fever. She denied chest pain, leg swelling, orthopnea, or paroxysmal nocturnal dyspnea (PND). Upon arrival, she was desaturating and was started on 8L oxygen to maintain oxygen saturation above 80%. Labs were largely unremarkable, though sodium was 133 and bicarbonate was elevated. Chest X-ray showed chronic emphysematous changes, and a CT chest ruled out pulmonary embolism, revealing only chronic emphysema and left lung atelectasis. The patient tested positive for Influenza A. She was treated with steroids, breathing therapy, and admitted for further management. Today, Ms. Robbins reports feeling significantly better. She currently requires 6L via nasal cannula and is maintaining 96% oxygen saturation, with her baseline being room air. She has shown notable improvement since yesterday. 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 Pineda on an outpatient basis. The plan is to continue Tamiflu for Influenza A, azithromycin, ceftriaxone, Pulmicort, DuoNebs, and steroids for COPD exacerbation. Her potassium level was 3.4, replacement was given, and a recheck will be done at 1400. Blood cultures x2 were negative, and the sputum culture is still pending. She will likely need 1-2 more days of treatment. Will qualify for home O2 at time of discharge. She reports everyone at home is ill with the flu as well. She denies any further concerns at this time. 09/19/24 Pt resting in bed. She is feeling much better today she reports. Lung sounds are clear. She is down to 4LNC 93%- RT working on weaning. RT to eval for home O2. A waiting PT eval for home needs as she has activity intolerance. Corrected Ca+ 8.6. Cold Molding Press Operator consulted for BMI < 18. Advised pt to continue ensure high protein OP. Continue tamiflu. Continue antibiotics and steroids OP. Pt to f/u with Pulm and PCP OP. 09/20 Pt resting in bed. She continues to have activity intolerance and wiling to stay in a swing bed. She will transition to this today. She is on 6lNC 94%. Continue tamiflu for Flu A. Continue antibiotics and steroids for COPD exacerbation. - Vitals & Intake/Output Vital Signs: Vital Signs Temperature 97.6 F 09/20/24 08:00 Pulse Rate 77 09/20/24 11:19 Respiratory Rate 20 09/20/24 11:19 Blood Pressure 161/90 09/20/24 08:00 O2 Sat by Pulse Oximetry 88 L 09/20/24 11:19 Intake & Output: Intake & Output 09/18/24 09/19/24 09/20/24 09/21/24 11:59 11:59 11:59 11:59 Intake Total 1462 1067 940 Output Total 550 500 Balance 912 567 940 Weight 42.1 kg - Lab Result Diagrams: 09/20/24 05:06 09/20/24 05:06 Lab Results-Last 24 Hrs: Lab Results-Last 24 Hours 09/20/24 09/20/24 Range/Units 05:06 05:06 WBC 8.3 (3.98-10.04) x10^3/uL RBC 3.70 L (3.93-5.22) x10^6/uL Hgb 11.6 (11.2-15.7) g/dL Hct 35.6 (34.1-44.9) % MCV 96.2 H (79.4-94.8) fL MCH 31.4 (25.6-32.2) pg MCHC 32.6 (32.2-35.5) g/dL RDW 14.4 (11.7-14.4) % Plt Count 159 L (182-369) x10^3/uL MPV 9.6 (9.4-12.3) fL Sodium 142 (135-145) mmol/L Potassium 4.6 (3.5-5.1) mmol/L Chloride 100 (98-107) mmol/L Carbon Dioxide 38 H (22-30) mmol/L Anion Gap 7.8 (5-15) MEQ/L BUN 14 (7-17) mg/dL Creatinine 0.49 L (0.52-1.04) mg/dL Estimated GFR 105.2 ML/MIN Glucose 121 H (74-106) mg/dL Calcium 8.5 (8.4-10.2) mg/dL Total Bilirubin 0.60 (0.2-1.3) mg/dL AST 40 H (14-36) U/L ALT 25 (0-35) U/L Alkaline Phosphatase 56 (38-126) U/L Serum Total Protein 5.5 L (6.3-8.2) g/dL Albumin 3.1 L (3.5-5.0) g/dL Micro Results-Entire Visit: Microbiology 09/16/24 18:28 Blood Culture - Preliminary Blood 09/16/24 18:33 Blood Culture - Preliminary Blood - Procedures and Test Procedures and Tests throughout Hospitalization: Therapy Orders & Screens 09/16/24 18:30 Respiratory Therapy Assessment DAILY Comment: 09/16/24 22:47 Oxygen Nasal Cannula 6 lpm Comment: Respiratory Therapy Consult ONCE Comment: Reason For Exam: 09/16/24 23:30 Incentive Spirometry UD Comment: 09/17/24 02:07 Smoking Cessation Education ONCE Comment: Diagnosis: Shortness of breath Smoking Status: Current every day smoker How long have you smoked: 30 yrs Have you smoked in the past 12 months: Yes Approximately how many cigarettes per day: <1 pack/day but >1/2 pack/day Do you dip or chew tobacco: No 09/17/24 07:46 RT Miscellaneous Order ROUTINE Comment: Physician Instructions: Baseline RA Reason For Exam: wean O2 PRN keep sat > 92% Diagnosis: Shortness of breath 09/18/24 08:52 PT Eval & Treat ( Order) ONCE Reason for Eval:: Increased SOB with activity, activity intolerance, home needs Diagnosis: Shortness of breath 09/19/24 07:27 RT Miscellaneous Order ROUTINE Comment: Physician Instructions: baseline RA Reason For Exam: eval for home O2 Diagnosis: Shortness of breath 09/19/24 18:53 Flutter Therapy UD Comment: Diagnosis: EXAC COPD, ACUTE HYPOXIC RESP FX, INFLUENZA A Discharge Exam General Appearance: no apparent distress, alert, cachetic Neurologic Exam: alert, 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, cooperative, normal mood/affect, nml cerebellar function, sensation nml, No motor deficits Eye Exam: PERRL, EOMI, eyes nml inspection Ears, Nose, Throat Exam: normal ENT inspection, pharynx normal, moist mucous membranes Neck Exam: normal inspection, non-tender, supple, full range of motion Respiratory Exam: normal breath sounds, lungs clear, No respiratory distress Cardiovascular Exam: regular rate/rhythm, normal heart sounds Gastrointestinal/Abdomen Exam: soft, No tenderness, No mass Pelvic Exam: deferred Rectal Exam: deferred Back Exam: normal inspection, normal range of motion, No CVA tenderness, No vertebral tenderness Extremity Exam: normal inspection, normal range of motion Skin Exam: normal color, warm, dry Final Diagnosis/Problem List - Final Discharge Diagnosis/Problem (1) COPD exacerbation Current Visit: Yes Status: Acute Code(s): J44.1 - CHRONIC OBSTRUCTIVE PULMONARY DISEASE W (ACUTE) EXACERBATION (2) Influenza A Current Visit: Yes Status: Acute Code(s): J10.1 - FLU DUE TO OTH IDENT INFLUENZA VIRUS W OTH RESP MANIFEST (3) Hypoxia Current Visit: Yes Status: Acute Code(s): R09.02 - HYPOXEMIA (4) Thrombocytopenia Current Visit: Yes Status: Acute (5) Hypokalemia Current Visit: Yes Status: Acute Code(s): E87.6 - HYPOKALEMIA (6) D-dimer, elevated Current Visit: Yes Status: Acute Code(s): R79.89 - OTHER SPECIFIED ABNORMAL FINDINGS OF BLOOD CHEMISTRY (7) Underweight (BMI < 18.5) Current Visit: Yes Status: Chronic Code(s): R63.6 - UNDERWEIGHT; Z68.1 - BODY MASS INDEX [BMI] 19.9 OR LESS, ADULT (8) Smoker Current Visit: Yes Status: Chronic Code(s): F17.200 - NICOTINE DEPENDENCE, UNSPECIFIED, UNCOMPLICATED (9) Hyponatremia Current Visit: Yes Status: Resolved Code(s): E87.1 - HYPO-OSMOLALITY AND HYPONATREMIA (10) Hypothyroidism Current Visit: Yes Status: Chronic Code(s): E03.9 - HYPOTHYROIDISM, UNSPECIFIED (11) Chronic pain syndrome Current Visit: Yes Status: Chronic Assessment & Plan: (1) COPD exacerbation Current Visit: Yes Status: Acute Assessment & Plan: - Continue steroids, pulmicort, duonebs - Ceftriaxone and azithromycin IV - CBC. CMP reviewed - Sputum pending - BC x2 negative - On 6LNC 96%- baseline room air - Will need appointment with Dr. Pineda- pulm OP at d/c 09/20 - transition to swing bed for activity intolerance per PT eval Code(s): J44.1 - CHRONIC OBSTRUCTIVE PULMONARY DISEASE W (ACUTE) EXACERBATION (2) Influenza A Current Visit: Yes Status: Acute Assessment & Plan: - Tamiflu - isolation Code(s): J10.1 - FLU DUE TO OTH IDENT INFLUENZA VIRUS W OTH RESP MANIFEST (3) Hypoxia Current Visit: Yes Status: Acute Assessment & Plan: - Due to underlying influenza A/COPD - Blood gas reviewed patient is not retaining- on admission - CT chest -ve for PE - Currently on 6 L oxygen- O2 96% - Low threshold to be declined and intubated 09/19 - Will need rehab vs. swing bed. 09/20 - swing bed - on 6LNC 94% Code(s): R09.02 - HYPOXEMIA (4) Thrombocytopenia Current Visit: Yes Status: Acute Assessment & Plan: - PLT 124- trend - Likely will need OP f/u at d/c with hematology 09/19 - PLT 147- - refer to hemoc OP 09/20 - PLT 159 (5) Hypokalemia Current Visit: Yes Status: Acute Assessment & Plan: - K+ 3.4- replaced- recheck at 1400- resolved 09/19 - resolved Code(s): E87.6 - HYPOKALEMIA (6) D-dimer, elevated Current Visit: Yes Status: Acute Assessment & Plan: - D-dimer 0.66 - CT negative for PE Code(s): R79.89 - OTHER SPECIFIED ABNORMAL FINDINGS OF BLOOD CHEMISTRY (7) Underweight (BMI < 18.5) Current Visit: Yes Status: Chronic Assessment & Plan: - Nutrition consult - 2:2 to COPD? - Ensure high protein started with each meal Code(s): R63.6 - UNDERWEIGHT; Z68.1 - BODY MASS INDEX [BMI] 19.9 OR LESS, ADULT (8) Smoker Current Visit: Yes Status: Chronic Assessment & Plan: - nicotine patch - advised cessation Code(s): F17.200 - NICOTINE DEPENDENCE, UNSPECIFIED, UNCOMPLICATED (9) Hyponatremia Current Visit: Yes Status: Resolved Assessment & Plan: - resolved Code(s): E87.1 - HYPO-OSMOLALITY AND HYPONATREMIA (10) Hypothyroidism Current Visit: Yes Status: Chronic Assessment & Plan: - Continue synthroid Code(s): E03.9 - HYPOTHYROIDISM, UNSPECIFIED (11) Chronic pain syndrome Current Visit: Yes Status: Chronic Assessment & Plan: - Continue Methadone for chronic back and hip pain Code(s): G89.4 - CHRONIC PAIN SYNDROME Code(s): G89.4 - CHRONIC PAIN SYNDROME - Discharge Discharge Date: 09/20/24 (swing bed IP) Disposition: XFER OTHER Condition: Stable Prescriptions: New Oseltamivir 75 mg [Tamiflu 75MG Capsule] 75 mg PO BID 3 Days #6 cap Prednisone 20 mg [Deltasone 20 mg] 20 mg PO BID 5 Days #10 tablet Fluticasone/Salmeterol 115/21 [Advair Hfa 115/21 Common canister*] 2 puff IH BIDRT 30 Days #1 inhaler Albuterol Sulfate [Albuterol Sulfate Hfa] 8.5 gm IH Q6HPRN PRN 30 Days #1 inh PRN Reason: Cough Doxycycline Hyclate 100 mg [Vibramycin 100 MG] 100 mg PO BID 7 Days #14 tab Continue Levothyroxine Sodium 25 Mcg [Synthroid 25 Mcg] 25 mcg PO DAILY Methadone HCl 5 mg PO UD Tizanidine HCl 2 mg PO TID Follow up with: YANNICK PINEDA [CONSULTING PHYSICIAN] - 11/04/24 9:30 am ([place] office) DISHA MACKEY JR [Primary Care Provider] - Office will call patient KIM ARAGON MD [NON-STAFF PHY W/O PRIVILEGES] - 10/06/24 2:00 pm
== END 2024-09-20 13:05 | DRG 191 ==
LOC: ED 17:01 → MED SURG 22:43 → OBSVTOIN 09-17 07:00
PROVIDERS: ADMIT Internal Medicine; ATTEND Internal Medicine
DX: J44.1 Chronic obstructive pulmonary disease with (acute) exacerbation (principal); E87.1 Hypo-osmolality and hyponatremia; Z68.1 Body mass index [BMI] 19.9 or less, adult; J10.1 Influenza due to other identified influenza virus with other respiratory manifestations; R09.02 Hypoxemia; D69.6 Thrombocytopenia, unspecified; E87.6 Hypokalemia; R79.89 Other specified abnormal findings of blood chemistry; R63.6 Underweight; F17.200 Nicotine dependence, unspecified, uncomplicated; E03.9 Hypothyroidism, unspecified; G89.4 Chronic pain syndrome; Z79.899 Other long term (current) drug therapy; Z85.43 Personal history of malignant neoplasm of ovary
CPT/HCPCS: 0241U; 36415; 71045; 71046; 71260; 80048; 80053; 82150; 82805; 83605; 83690; 83735; 84132; 84484; 85025; 85027; 85379; 87040; 93005; 93268; 94640; 94667; 94762; 96374; 99285; J0456; J0696; J1650; J2919; J7609; Q3014; A9270-GY; G0378

== ENCOUNTER 2024-09-20 08:53 | Inpatient (IN) | payer MEDICARE ==
[2024-09-20] MEDS ORDERED: ROCEPHIN 1 GM / 100 ML NaCl 1 GM/100 ML IVPB IV SCH (13:17)
[2024-09-20] MEDS ORDERED: NORCO 5/325 MG PO PRN ×2 (13:17)
[2024-09-20] MEDS ORDERED: solu-MEDROL 40 MG, Sterile H2O 10 ml 1 ML IV SCH (14:00)
[2024-09-20] MEDS: Nicoderm CQ 21 MG TOP SCH (14:15)
[2024-09-20] MEDS: Aplisol ID ONE (14:25)
[2024-09-20] MEDS ORDERED: DUONEB 0.5-3 MG/3 ml Neb IH SCH (15:00)
[2024-09-20] MEDS ORDERED: Zanaflex 4 MG PO SCH (15:00)
[2024-09-20] MEDS: solu-MEDROL 40 MG, Sterile H2O 10 ml 1 ML IV SCH (15:13)
[2024-09-20] MEDS: Zanaflex 4 MG PO SCH (15:14)
[2024-09-20] MEDS: DUONEB 0.5-3 MG/3 ml Neb IH SCH (15:23)
[2024-09-20] MEDS ORDERED: DOLOPHINE 10MG Tablet PO SCH (16:00)
[2024-09-20] MEDS: Zithromax 500 MG/ 250 ML NaCl Premix 500 MG/250 ML IVPB IV SCH ×2 (17:35→17:40)
[2024-09-20] MEDS: DOLOPHINE 10MG Tablet PO SCH (17:35)
[2024-09-20] MEDS ORDERED: Zithromax 500 MG/ 250 ML NaCl Premix 500 MG/250 ML IVPB IV SCH (18:00)
[2024-09-20] MEDS ORDERED: PULMICORT 0.5 MG/2 ML RESPULES IH SCH (19:00)
[2024-09-20] MEDS: PULMICORT 0.5 MG/2 ML RESPULES IH SCH (19:50)
[2024-09-20] MEDS: Tamiflu 75MG Capsule PO SCH (20:58)
[2024-09-20] MEDS ORDERED: Tamiflu 75MG Capsule PO SCH (22:00)
[2024-09-21] MEDS ORDERED: Nicoderm CQ 21 MG TOP SCH (08:00)
[2024-09-21 08:41] LABS: Hematocrit 38.7 % (34.1-44.9); Hemoglobin 12.9 g/dL (11.2-15.7); Mean Cell Volume 94.4 fL (79.4-94.8); Mean Corpuscular Hemoglobin 31.5 pg (25.6-32.2); Mean Corpuscular Hgb Concent. 33.3 g/dL (32.2-35.5); Mean Platelet Volume 9.7 fL (9.4-12.3); Platelet Count 209 x10^3/uL (182-369); White Blood Count 7.1 x10^3/uL (3.98-10.04)
[2024-09-21 08:55] LABS: ALBUMIN 3.7 g/dL (3.5-5.0); BILIRUBIN,TOTAL 1.1 mg/dL (0.2-1.3); Calcium 8.7 mg/dL (8.4-10.2); Creatinine 1 0.44 mg/dL (0.52-1.04); Potassium 3.8 mmol/L (3.5-5.1); Total Protein 6.4 g/dL (6.3-8.2)
[2024-09-21] MEDS ORDERED: SYNTHROID 25 MCG PO SCH (10:00)
[2024-09-21] MEDS ORDERED: ENOXAPARIN SODIUM SQ SCH (10:00)
[2024-09-21] MEDS ORDERED: Protonix 20MG Tablet PO SCH (10:00)
[2024-09-21] MEDS ORDERED: ROCEPHIN 1 GM / 100 ML NaCl 1 GM/100 ML IVPB IV SCH (10:00)
[2024-09-21] MEDS: ROCEPHIN 1 GM / 100 ML NaCl 1 GM/100 ML IVPB IV SCH (10:29)
[2024-09-21] MEDS: ENOXAPARIN SODIUM SQ SCH (10:29)
[2024-09-21] MEDS: Protonix 20MG Tablet PO SCH (10:30)
[2024-09-21] MEDS: SYNTHROID 25 MCG PO SCH (10:30)
--- NOTE | 2024-09-21 12:10 | PCM.SB.HP ---
Swing Bed H&P - Acute Care H&P in SB Record Acute H&P in Swing Bed Medical Record & valid with no change: Yes - Acute Care H&P Revisions as follows Physical Exam Changes: Ms. Robbins is a 64-year-old female with a history of chronic pain syndrome, hypothyroidism, and COPD, who presented to the ER on 09/17/24 with a 3-day history of shortness of breath. Upon arrival, she was desaturating and was started on 8L oxygen. Labs showed mild abnormalities, and a chest X-ray revealed chronic emphysema and left lung atelectasis, while a CT chest ruled out pulmonary embolism. She tested positive for Influenza A. She was treated with steroids, breathing therapy, and admitted for further management. By 09/18/24, she showed significant improvement, requiring 6L oxygen and maintaining 96% saturation. Her potassium was 3.4, and replacement was given. The plan was to continue her on Tamiflu, antibiotics, and steroids, with follow- up with Dr. Pineda for outpatient care. She was expected to qualify for home oxygen at discharge, and her sputum culture was pending. On 09/19/24, Ms. Robbins reported feeling much better and had clear lung sounds. She was on 4L oxygen with a goal to wean further, with respiratory therapy evaluating for home oxygen. The media planner was consulted due to her low BMI, and she was advised to continue high-protein supplements. A pulmonary and PCP follow-up was recommended. By 09/20/24, Ms. Robbins continued to experience activity intolerance and was transitioning to a swing bed. She was on 6L oxygen, and her treatment plan remained focused on managing her flu and COPD exacerbation with Tamiflu, antibiotics, and steroids. 09/21/24 Pt transitioned to a swing bed today. She is overall feeling better. On 4lNC 91%. Continue PT/OT eval for activity intolerance. RT to wean O2 PRN. Baseline RA. She denies any further concerns at this time. General Appearance: no apparent distress Neurologic: alert, 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, motor weakness Eye Exam: PERRL/EOMI Ears, Nose, Throat Exam: normal ENT inspection Neck Exam: normal inspection Respiratory: normal breath sounds, other (increased SOB with activity) Cardiovascular: regular rate/rhythm Gastrointestinal: soft, normal bowel sounds Pelvic Exam: not done, deferred Rectal Exam: deferred Back Exam: normal inspection Extremity Exam: normal inspection Skin Exam: normal color - Acute Care ROS Revisions Constitutional: Weakness Eyes (ROS): No Symptoms Ears, Nose, & Throat: No Symptoms Respiratory: No Symptoms Cardiac: No Symptoms Abdominal/Gastrointestinal: No Symptoms Genitourinary Symptoms: No Symptoms Genitourinary Symptoms: No Symptoms Musculoskeletal: No Symptoms Skin: No Symptoms Neurological: No Symptoms Psychological: No Symptoms Endocrine: No Symptoms Hematologic/Lymphatic: No Symptoms Immunological/Allergic: No Symptoms All Other Systems: Reviewed and Negative
[2024-09-22 05:58] LABS: Hematocrit 40.3 % (34.1-44.9); Hemoglobin 13.2 g/dL (11.2-15.7); Mean Cell Volume 93.7 fL (79.4-94.8); Mean Corpuscular Hemoglobin 30.7 pg (25.6-32.2); Mean Corpuscular Hgb Concent. 32.8 g/dL (32.2-35.5); Mean Platelet Volume 9.4 fL (9.4-12.3); Platelet Count 248 x10^3/uL (182-369); Red Cell Distribution Width 14.2 % (11.7-14.4); White Blood Count 6.2 x10^3/uL (3.98-10.04)
[2024-09-22 07:07] LABS: ALBUMIN 3.6 g/dL (3.5-5.0); ANION GAP 11.8 MEQ/L (5-15); BILIRUBIN,TOTAL 1.1 mg/dL (0.2-1.3); Calcium 8.5 mg/dL (8.4-10.2); Creatinine 1 0.47 mg/dL (0.52-1.04); EST GLOMERULAR FILTRATION RATE 106.2 ML/MIN; Potassium 4.2 mmol/L (3.5-5.1); Total Protein 6.4 g/dL (6.3-8.2)
[2024-09-22] MEDS: DOLOPHINE 10MG Tablet PO SCH (11:40)
[2024-09-23] MEDS ORDERED: DUONEB 0.5-3 MG/3 ml Neb IH PRN (11:39)
[2024-09-23] MEDS: DUONEB 0.5-3 MG/3 ml Neb IH SCH (14:43)
[2024-09-23] MEDS ORDERED: solu-MEDROL ONE (21:41)
[2024-09-24] MEDS ORDERED: solu-MEDROL ONE (06:54)
[2024-09-24] MEDS ORDERED: solu-MEDROL 40 MG, Sterile H2O 10 ml 1 ML IV SCH (14:00)
[2024-09-24] MEDS: DOLOPHINE 10MG Tablet PO SCH (23:51)
[2024-09-25] MEDS: TYLENOL 325 MG PO PRN (10:58)
[2024-09-25] MEDS ORDERED: APRESOLINE 20 MG/ML INJ IV PRN (11:21)
[2024-09-25] MEDS: DELTASONE 20 MG PO SCH (14:36)
--- NOTE | 2024-09-26 05:14 | PCM.NOTE ---
Date and Time: 09/26/24 0510 Subjective Assessment: Ms. Robbins is a 64-year-old female with a history of chronic pain syndrome, hypothyroidism, and COPD, who presented to the ER on 09/17/24 with a 3-day history of shortness of breath. Upon arrival, she was desaturating and was started on 8L oxygen. Labs showed mild abnormalities, and a chest X-ray revealed chronic emphysema and left lung atelectasis, while a CT chest ruled out pulmonary embolism. She tested positive for Influenza A. She was treated with steroids, breathing therapy, and admitted for further management. Ms. Robbins continued to experience activity intolerance and was transitioning to a swing bed. She was on 6L oxygen, and her treatment plan remained focused on managing her flu and COPD exacerbation with Tamiflu, antibiotics, and steroids. Patient with dyspnea overnight 09/25/24 requiring increased oxygen requirements now at 11L oxymizer. CXR performed 09/26/24 with no new cardiopulmonary abnormalities. CT chest ordered and pending. Continue PT/OT eval for activity intolerance. - Review of Systems Constitutional: Weakness Eyes: No Symptoms Ears, Nose, & Throat: No Symptoms Respiratory: Cough, Short Of Breath, Wheezing Cardiac: No Symptoms Abdominal/Gastrointestinal: No Symptoms Genitourinary Symptoms: No Symptoms Musculoskeletal: No Symptoms Skin: No Symptoms Neurological: No Symptoms Psychological: No Symptoms Endocrine: No Symptoms Hematologic/Lymphatic: No Symptoms Immunological/Allergic: No Symptoms Objective Exam General Appearance: no apparent distress Neurologic Exam: alert, 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, cooperative Skin Exam: normal color Eye Exam: PERRL Ears, Nose, Throat Exam: normal ENT inspection Neck Exam: normal inspection Respiratory Exam: diminished breath sounds, crackles/rales, wheezing Cardiovascular Exam: regular rate/rhythm, normal heart sounds Gastrointestinal/Abdomen Exam: soft, normal bowel sounds Extremity Exam: normal inspection Back Exam: normal inspection Pelvic Exam: deferred Rectal Exam: deferred Objective Data Vital Signs: Vital Signs - 24 hr Temp Pulse Resp BP Pulse Ox 09/25/24 23:00 97 09/25/24 21:34 84 L 09/25/24 20:00 98 F 89 18 148/70 90 L 09/25/24 16:50 91 H 16 92 L 09/25/24 11:20 93 H 136/72 09/25/24 10:58 90 16 91 L 09/25/24 07:37 96.8 F 80 17 168/71 91 L 09/25/24 07:01 89 18 92 L Pain Assessment - Last Documented Pain Intensity 0 Pain Scale Used 0-10 Pain Scale Intake and Output: Intake & Output 09/23/24 09/24/24 09/25/24 09/26/24 11:59 11:59 11:59 11:59 Intake Total 662 1180 634 Output Total 2100 900 1800 Balance -1438 280 634 -1800 Weight 42.5 kg Multi-Disciplinary Progress Notes: Multi-Disciplinary Progress Notes 09/25/24 22:25 Respiratory Note by Ester Penn SpO2 98% on 5lpm oxymask. Pt appears comfortable, no respiratory distress noted. Oxygen decreased to 3lpm oxymask at this time. Will continue to monitor. Initialized on 09/25/24 22:25 - END OF NOTE 09/25/24 22:05 Respiratory Note by Ester Penn Received a call from [facility] regarding patients low SpO2. At bedside, SpO2 89% on 4lpm nasal cannula. Pt placed on 5lpm oxymask at this time. Pt is not short of breath, resting quietly in bed. SpO2 90-91% on oxymask. Will continue to monitor. Initialized on 09/25/24 22:05 - END OF NOTE Assessment/Plan (1) COPD exacerbation Current Visit: No Status: Acute Assessment & Plan: -2 to FluA -CXR 09/17/24 reviewed with Hyperinflated bilateral lungs likely COPD. Stable. Small nodular opacity in right mid zone. Stable. Prominent bilateral parahilar markings possibly bronchitis, stable. - Continue prednisone po, pulmicort, duonebs - Ceftriaxone and azithromycin now discontinued 09/24 - CBC. CMP reviewed - WBC elevated at 12.0 - BC x2 negative - Will need appointment with Dr. Pineda- pulm OP at d/c - transitioned to swing bed for activity intolerance per PT eval -Supplemental oxygen to maintain spo2 goal of >89% - patient now on 11L oxymizer - baseline RA -Repeat CXR with no new findings 09/26/24 -Obtain CT chest Code(s): J44.1 - CHRONIC OBSTRUCTIVE PULMONARY DISEASE W (ACUTE) EXACERBATION (2) D-dimer, elevated Current Visit: No Status: Acute Assessment & Plan: - D-dimer reviewed at 0.66 - CT negative for PE Code(s): R79.89 - OTHER SPECIFIED ABNORMAL FINDINGS OF BLOOD CHEMISTRY (3) Hypokalemia Current Visit: No Status: Acute Assessment & Plan: - resolved Code(s): E87.6 - HYPOKALEMIA (4) Hypoxia Current Visit: No Status: Acute Assessment & Plan: - Due to underlying influenza A/COPD - Blood gas reviewed patient is not retaining- on admission - CT chest -negative for PE - Currently on 2 L oxygen2 Code(s): R09.02 - HYPOXEMIA (5) Influenza A Current Visit: No Status: Acute Assessment & Plan: - Tamiflu completed - isolation Code(s): J10.1 - FLU DUE TO OTH IDENT INFLUENZA VIRUS W OTH RESP MANIFEST (6) Thrombocytopenia Current Visit: No Status: Acute Assessment & Plan: - PLT - trend - Likely will need OP f/u at d/c with hematology (7) Chronic pain syndrome Current Visit: No Status: Chronic Assessment & Plan: - Continue Methadone for chronic back and hip pain Code(s): G89.4 - CHRONIC PAIN SYNDROME (8) Hypothyroidism Current Visit: No Status: Chronic Assessment & Plan: - Continue synthroid Code(s): E03.9 - HYPOTHYROIDISM, UNSPECIFIED (9) Smoker Current Visit: No Status: Chronic Assessment & Plan: - nicotine patch - advised cessation Code(s): F17.200 - NICOTINE DEPENDENCE, UNSPECIFIED, UNCOMPLICATED (10) Underweight (BMI < 18.5) Current Visit: No Status: Chronic Assessment & Plan: - Nutrition consult - 2:2 to COPD? - Ensure high protein started with each meal Code(s): R63.6 - UNDERWEIGHT; Z68.1 - BODY MASS INDEX [BMI] 19.9 OR LESS, ADULT
[2024-09-26 06:10] LABS: Absolute Neutrophil Ct (ANC) 10.54 x10^3/uL (1.56-6.13); BASOPHIL % 0.3 % (0.1-1.2); Basophil (Absolute #) 0.04 x10^3/uL (0.01-0.08); Eosinophil (Absolute #) 0 x10^3/uL (0.04-0.36); Hematocrit 49.6 % (34.1-44.9); Hemoglobin 15.4 g/dL (11.2-15.7); IMMATURE GRAN # 0.08 x10^3u/L (0.001-0.031); IMMATURE GRAN % 0.7 % (0.001-0.429); Lymphocyte (Absolute #) 0.55 x10^3/uL (1.18-3.74); Lymphocytes % 4.6 % (19.3-51.7); Mean Platelet Volume 8.8 fL (9.4-12.3); Monocyte (Absolute #) 0.74 x10^3/uL (0.24-0.86); Monocytes % 6.2 % (4.7-12.5); Neutrophil % 88.2 % (34.0-71.1); Platelet Count 344 x10^3/uL (182-369); Red Blood Count 4.96 x10^6/uL (3.93-5.22); Red Cell Distribution Width 13.9 % (11.7-14.4)
[2024-09-26 06:24] LABS: ALBUMIN 3.7 g/dL (3.5-5.0); ANION GAP 8.7 MEQ/L (5-15); BILIRUBIN,TOTAL 1.8 mg/dL (0.2-1.3); Calcium 8.4 mg/dL (8.4-10.2); Creatinine 1 0.53 mg/dL (0.52-1.04); EST GLOMERULAR FILTRATION RATE 103.2 ML/MIN; Potassium 4.5 mmol/L (3.5-5.1); Total Protein 6.5 g/dL (6.3-8.2)
[2024-09-26 07:59] LABS: Slide Review 1 YES
--- NOTE | 2024-09-26 09:21 | XRAY ---
Indication: Short of breath. Comparison: September 17, 2024 Portable chest demonstrates improving left base infiltrate/atelectasis with mild residual. Stable COPD and right lung calcified granuloma. Heart not enlarged. No new cardiopulmonary abnormalities.
--- NOTE | 2024-09-26 13:46 | XRAY ---
Indication: Dyspnea. Increased oxygen requirement. Multiple contiguous axial images obtained through the chest using 75 cc Isovue 370 contrast and PE protocol. Comparison: September 16, 2024 Good opacification pulmonary arteries. However there is again mild diffuse respiration artifact limits evaluation of the more distal lobar and segmental branches. Again no obvious pulmonary embolus. Heart not enlarged. Aorta is again minimally arteriosclerotic without aneurysm/dissection. No pathologic mediastinal/hilar lymphadenopathy. Lungs again demonstrates diffuse pulmonary emphysema with scattered peripheral fibrosis/scarring and tiny right upper lobe calcified granuloma. No new infiltrate or effusion. Bony thorax intact again with mild degenerative changes throughout the spine and minimal dextroscoliosis. Limited upper abdomen again demonstrates fatty liver. Impression: No change compared to CT PE exam 10 days ago. Again diffuse respiration artifact limits pulmonary embolus evaluation. Again no obvious pulmonary embolus. Chronic findings including pulmonary emphysema, fibrosis/scarring, arteriosclerotic disease, chronic bony findings, fatty liver, and old granulomatous disease.
[2024-09-26 16:31] LABS: Appearance Clear (Clear); Bilirubin Negative (Negative); Blood Negative (Negative); Glucose, Urine Negative (Negative); Ketones Negative (Negative); Leukocyte Esterase Negative (Negative); Nitrite Negative (Negative); Ph 6.5 (4.6-8.0); Protein,Urine Dip Negative (Negative); Specific Gravity >=1.030 (1.005-1.030); Urobilinogen 0.2 mg/dL (0.2)
[2024-09-26 16:36] LABS: Bacteria None Seen /HPF (None Seen); Epithelial Cells None Seen /HPF (None Seen); Hyaline Casts NONE SEEN /LPF (0-2); RBC 0-2 /HPF (0-5); WBC 0-2 /HPF (0-5)
[2024-09-26] MEDS: solu-MEDROL 40 MG, Sterile H2O 10 ml 1 ML IV SCH (22:20)
[2024-09-27 07:57] LABS: Absolute Neutrophil Ct (ANC) 8.48 x10^3/uL (1.56-6.13); BASOPHIL % 0.1 % (0.1-1.2); Basophil (Absolute #) 0.01 x10^3/uL (0.01-0.08); Eosinophil (Absolute #) 0 x10^3/uL (0.04-0.36); Hematocrit 50.5 % (34.1-44.9); Hemoglobin 16.6 g/dL (11.2-15.7); IMMATURE GRAN # 0.05 x10^3u/L (0.001-0.031); IMMATURE GRAN % 0.5 % (0.001-0.429); Lymphocyte (Absolute #) 0.44 x10^3/uL (1.18-3.74); Lymphocytes % 4.7 % (19.3-51.7); Mean Cell Volume 95.1 fL (79.4-94.8); Mean Corpuscular Hemoglobin 31.3 pg (25.6-32.2); Mean Corpuscular Hgb Concent. 32.9 g/dL (32.2-35.5); Monocyte (Absolute #) 0.32 x10^3/uL (0.24-0.86); Monocytes % 3.4 % (4.7-12.5); Neutrophil % 91.3 % (34.0-71.1); Platelet Count 405 x10^3/uL (182-369); Red Blood Count 5.31 x10^6/uL (3.93-5.22); White Blood Count 9.3 x10^3/uL (3.98-10.04)
[2024-09-27 08:18] LABS: ALBUMIN 4.1 g/dL (3.5-5.0); ANION GAP 15.3 MEQ/L (5-15); BILIRUBIN,TOTAL 2.6 mg/dL (0.2-1.3); Calcium 8.8 mg/dL (8.4-10.2); Creatinine 1 0.56 mg/dL (0.52-1.04); EST GLOMERULAR FILTRATION RATE 101.9 ML/MIN; Potassium 5.3 mmol/L (3.5-5.1); Total Protein 7.2 g/dL (6.3-8.2)
[2024-09-27 10:53] LABS: Slide Review 1 YES
[2024-09-27 12:26] LABS: ALBUMIN 3.3 g/dL (3.5-5.0); ANION GAP 8.3 MEQ/L (5-15); BILIRUBIN,TOTAL 1.8 mg/dL (0.2-1.3); Creatinine 1 0.6 mg/dL (0.52-1.04); EST GLOMERULAR FILTRATION RATE 100.2 ML/MIN; Potassium 4.3 mmol/L (3.5-5.1); Total Protein 5.8 g/dL (6.3-8.2)
--- NOTE | 2024-09-27 12:42 | PCM.NOTE ---
Date and Time: 09/27/24 1220 Subjective Assessment: Ms. Robbins is a 64-year-old female with a history of chronic pain syndrome, hypothyroidism, and COPD, who presented to the ER on 09/17/24 with a 3-day history of shortness of breath. Upon arrival, she was desaturating and was started on 8L oxygen. Labs showed mild abnormalities, and a chest X-ray revealed chronic emphysema and left lung atelectasis, while a CT chest ruled out pulmonary embolism. She tested positive for Influenza A. She was treated with steroids, breathing therapy, and admitted for further management. Ms. Robbins continued to experience activity intolerance and was transitioning to a swing bed. She was on 6L oxygen, and her treatment plan remained focused on managing her flu and COPD exacerbation with Tamiflu, antibiotics, and steroids. Patient with dyspnea overnight 09/25/24 requiring increased oxygen requirements now at 11L oxymizer. CXR performed 09/26/24 with no new cardiopulmonary abnormalities. CT chest No change compared to CT PE exam 10 days ago. Again diffuse respiration artifact limits pulmonary embolus evaluation. Again no obvious pulmonary embolus. Chronic findings including pulmonary emphysema, fibrosis/scarring, arteriosclerotic disease, chronic bony findings, fatty liver, and old granulomatous disease. Lab finding 09/27/24 with transaminitis and erythrocytosis. US ordered and pending. Continue PT/OT eval for activity intolerance. 09/27/24: Overall dyspnea has improved today. Oxygen requirements decreased from 11L oxymizer to 4L NC. US ordered for transaminitis. Patient has no complaints of abdominal pain, nausea, or vomiting. - Review of Systems Constitutional: No Symptoms Eyes: No Symptoms Ears, Nose, & Throat: No Symptoms Respiratory: Cough, Short Of Breath Cardiac: No Symptoms Abdominal/Gastrointestinal: No Symptoms Genitourinary Symptoms: No Symptoms Musculoskeletal: No Symptoms Skin: No Symptoms Neurological: No Symptoms Psychological: No Symptoms Endocrine: No Symptoms Hematologic/Lymphatic: No Symptoms Immunological/Allergic: No Symptoms Objective Exam General Appearance: no apparent distress Neurologic Exam: alert, 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, cooperative Eye Exam: PERRL Ears, Nose, Throat Exam: normal ENT inspection Neck Exam: normal inspection Respiratory Exam: diminished breath sounds Cardiovascular Exam: regular rate/rhythm, normal heart sounds Gastrointestinal/Abdomen Exam: soft, normal bowel sounds Extremity Exam: normal inspection Back Exam: normal inspection Pelvic Exam: deferred Rectal Exam: deferred Objective Data Vital Signs: Vital Signs - 24 hr Temp Pulse Resp BP Pulse Ox 09/27/24 10:29 98 H 20 91 L 09/27/24 08:00 97.7 F 98 H 20 139/76 88 L 09/27/24 07:06 95 09/27/24 06:53 98 09/27/24 06:34 77 16 93 L 09/26/24 23:06 87 16 93 L 09/26/24 20:00 97.1 F 102 H 18 143/62 98 09/26/24 17:58 95 09/26/24 14:27 97 09/26/24 14:26 97 H 20 97 Pain Assessment - Last Documented Pain Intensity 0 Pain Scale Used 0-10 Pain Scale Intake and Output: Intake & Output 09/25/24 09/26/24 09/27/24 09/28/24 11:59 11:59 11:59 11:59 Intake Total 634 120 120 Output Total 1800 1 Balance 634 -1680 119 Weight 40.2 kg Lab Results: Lab Results-Last 24 Hours 09/26/24 09/27/24 09/27/24 Range/Units Unknown 07:43 07:43 WBC 9.3 (3.98-10.04) x10^3/uL RBC 5.31 H (3.93-5.22) x10^6/uL Hgb 16.6 H (11.2-15.7) g/dL Hct 50.5 H (34.1-44.9) % MCV 95.1 H (79.4-94.8) fL MCH 31.3 (25.6-32.2) pg MCHC 32.9 (32.2-35.5) g/dL RDW 14.0 (11.7-14.4) % Plt Count 405 H (182-369) x10^3/uL MPV 9.0 L (9.4-12.3) fL Gran % 91.3 H (34.0-71.1) % Immature Gran % (Auto) 0.5 H (0.001-0.429) % Nucleat RBC Rel Count 0.0 (0.00-0.2) % Eos # (Auto) 0 L (0.04-0.36) x10^3/uL Immature Gran # (Auto) 0.05 H (0.001-0.031) x10^3u/L Absolute Lymphs (auto) 0.44 L (1.18-3.74) x10^3/uL Absolute Monos (auto) 0.32 (0.24-0.86) x10^3/uL Absolute Nucleated RBC 0.00 (0.00-0.012) x10^3u/L Lymphocytes % 4.7 L (19.3-51.7) % Monocytes % 3.4 L (4.7-12.5) % Eosinophils % 0.0 L (0.7-5.8) % Basophils % 0.1 (0.1-1.2) % Absolute Granulocytes 8.48 H (1.56-6.13) x10^3/uL Basophils # 0.01 (0.01-0.08) x10^3/uL Sodium 139 (135-145) mmol/L Potassium 5.3 H (3.5-5.1) mmol/L Chloride 99 (98-107) mmol/L Carbon Dioxide 30 (22-30) mmol/L Anion Gap 15.3 H (5-15) MEQ/L BUN 28 H (7-17) mg/dL Creatinine 0.56 (0.52-1.04) mg/dL Estimated GFR 101.9 ML/MIN Glucose 103 (74-106) mg/dL Calcium 8.8 (8.4-10.2) mg/dL Total Bilirubin 2.60 H (0.2-1.3) mg/dL AST 37 H (14-36) U/L ALT 45 H (0-35) U/L Alkaline Phosphatase 68 (38-126) U/L Serum Total Protein 7.2 (6.3-8.2) g/dL Albumin 4.1 (3.5-5.0) g/dL Urine Color Yellow (Yellow) Urine Appearance Clear (Clear) Urine pH 6.5 (4.6-8.0) Ur Specific [place] >=1.030 A (1.005-1.030) Urine Protein Negative (Negative) Urine Glucose (UA) Negative (Negative) mg/dL Urine Ketones Negative (Negative) Urine Blood Negative (Negative) Urine Nitrite Negative (Negative) Urine Bilirubin Negative (Negative) Urine Urobilinogen 0.2 (0.2) mg/dL Ur Leukocyte Esterase Negative (Negative) U Hyaline Cast (Auto) NONE SEEN (0-2) /LPF Urine Microscopic RBC 0-2 (0-5) /HPF Urine Microscopic WBC 0-2 (0-5) /HPF Ur Epithelial Cells None Seen (None Seen) /HPF Urine Bacteria None Seen (None Seen) /HPF Urine Culture Reflexed NO (NO) Slides for Path Review YES Radiology Exams: Radiology Procedures Category Date Time Status CHEST 1 VIEW (PORTABLE) Routine Exams 09/26/24 08:52 Completed CHEST WITH CONTRAST [CT] Stat Exams 09/26/24 11:19 Completed US ABDOMEN LIMITED [ABDOMINAL-LIMITED] [US] Urgent Exams 09/27/24 09:44 Ordered Multi-Disciplinary Progress Notes: Multi-Disciplinary Progress Notes 09/27/24 10:38 Physical Therapy Note by Mac(L#[id number])Maci ATTEMPTED P.T. THIS A.M. PT. ON 4 L O2. AND SPOUSE PRESENT. O2 SATS 90-91% ON 4 L. PT. DID NOT FEEL LIKE WORKING W/ P.T. AT THIS TIME. WILL ATTEMPT AGAIN LATER. Initialized on 09/27/24 10:38 - END OF NOTE 09/27/24 08:45 (created 09/27/24 09:00) Respiratory Note by Loan Brown RT WAS CALLED TO PT'S ROOM. WHEN I ENTERED THE ROOM BELLO EVANS, COUPLES THERAPIST WAS AT BEDSIDE AND PT HAD BEEN INCREASED TO 4LPM VIA NASAL CANNULA AND O2 SAT WAS 90% AND IT ENDED UP INCREASING TO 93%. BELLO STATED WHEN SHE ENTERED THE ROOM PT'S O2 SAT WAS IN THE 70'S ON THE 2LPM VIA NASAL CANNULA. Initialized on 09/27/24 09:00 - END OF NOTE 09/26/24 23:08 Respiratory Note by Carolina Rios This RT attempted to give scheduled 1900 neb tx several times, pt continues to refuse tx. Advised pt to call RT if she needs tx. Initialized on 09/26/24 23:08 - END OF NOTE 09/26/24 18:11 OT Plan of Care Note by Venancio(L#[id number])Malinda OT Eval OT Inpatient Eval and POC Start: 09/20/24 13:17 Freq: ONCE Status: Active Protocol: Created 09/20/24 13:18 JALVARO (Rec: 09/20/24 13:18 JALVARO DOUGLAS-NAIDA) Document 09/21/24 23:49 MJ (Rec: 09/21/24 23:50 MJ [id number]) OT Evaluation Subjective Ms. Robbins is a 64 y/o female with hx of chronic pain (on methadone), hypothyroidism, and COPD (not on home oxygen). She presented to the ED on 09/17/24 with a 3-day history of SOC without significant cough, congestion, or fever. Upon arrival to ED she was placed on 8.0L of oxygen to maintain oxygen saturation >80% d/t desaturating. Chest X-Ray showed chronic emphysematous changes with pulmonary embolism ruled out by chest CT that showed chronic emphysematous changes and L lung atelectasis. She tested positive for Influenza A. Patient was admitted to Swing Bed program for further management of symptoms and referred for Occupational Therapy evaluation d/t decreased functional activity tolerance, decreased independence with self-care, and decreased functional strength. Pertinent Past Medical History Please see medical chart for complete medical history. Prior Level of Function Ms. Robbins lives in a one- story home with her of 30+ years, her sister, and her sister's SO. There are approximately 2 steps to enter with a handrail. She reports that she and her sister share the housework including meal prep and that she requires frequent rest breaks to complete tasks. She performs bathing every other day. She states that prior to this hospitalization, she was independent with all of her ADLs but required frequent rest breaks and states that she is frequently fatigued. Her hobbies including watching television and movies (SYFY and FX channels). She also reports that she has a rollator at home that she occasionally uses as well as a wooden crutch that she occasionally uses for stability during functional mobility. Approximately one year ago, Amanda reports having oxygen in the home and is familiar with navigating tubing; however, states she allowed it to be removed from the home but was unclear why other than stating she didn't need it anymore. She does not currently see a Director Of Revenue Cycle Management . Equipment at Home Prior to Admission Walker,Crutches Date 09/21/24 Feeding WFL Grooming WFL Bathing Impaired Comment decreased functional activity tolerance, requires assistance with LB bathing Dressing Impaired Comment decreased functional activity tolerance, requires assistance with LB dressing Toileting WFL Comment patient reports that she has not had a bowel movement x 2 days Bed Mobility WFL Toilet Transfers Impaired Comment Has been using BSC Shower Transfers Impaired Functional Transfers Impaired Range of Motion WFL Coordination WFL Functional Endurance <5 minutes Cognition A&O x3 SLUMS Score: 06/25 Pain Patient denies pain currently Objective Data/Standardized Assessment(s Baldev Index of ADLs: 70/100 ) SLUMS: 06/25 OT Plan Of Care Date of Evaluation 09/21/24 Treatment Diagnosis COPD exacerbation, acute hypoxic respiratory function, Influenza A Precaution/Orders as written Eval & Treat Teaching Recipient Patient Patient is Aware of Diagnosis and Yes Prognosis Patient is receptive to Plan of Care and Yes contributory towards OT goals Functional Problem List decreased functional activity tolerance, decreased independence with I/ADLs, decreased functional strength Therapuetic Interventions Evaluation/Re-Assessment, Therapeutic Activity, Self- Care, Therapeutic Exercise, Neuromuscular Re-Education, AE /AD/DME education and training Functional Goals of Treatment 1. By discharge, Amanda will demonstrate good carryover of established HEP including energy conservation strategies during I/ADLs. 2. Amanda will demonstrate bathing with Modified [place] in sitting using AE as needed within 2 weeks. 3. Amanda will demonstrate functional activity tolerance of 10-15 minutes to complete self-care task while maintaining vitals WNL within 2 weeks. Frequency/Duration 1x/weekday Rehabilitation Potential for Goals/ Good Barriers to Progress Discharge Recommendations/Plan At this time OTR recommends discharge home with [facility] following Swing Bed stay with AE to encourage carryover of energy conservation strategies to maximize safety and independence with self-care. Medical & Surgical History Past Medical History Yes Neurological History Migraines ENT History No Pertinent History Endocrine History Hypothyroidism Respiratory History COPD Cardiac History No Pertinent History GI History No Pertinent History History No Pertinent History Female Reproductive Disorders Ovarian Cancer Musculoskeletal History Other Psycho-Social History No Pertinent History Other Medical History chronic hip problem since 3 years of age - chronic back; anemia Past Surgical History Yes Hx Anesthesia Reactions No Hx Malignant Hyperthermia No Neurological Surgical History No Pertinent History ENT Surgical History T& A Respiratory Surgical History No Pertinent History Cardiac Surgical History No Pertinent History Gastrointestinal Surgical History Appendectomy,Hemorrhoidectomy Genitourinary Surgical History No Pertinent History Female Surgical History Hysterectomy Musculoskeletal Surgical History Joint Replacement,Other Other Surgical History 12 hip surgeries (3 R hip replacements) spine surgery L leg surgery (limb reduction) Alcohol None Drug Use none Hx Substance Use Treatment No OT Notes 09/26/24 18:03 Occupational Therapy Note by Venancio(L#[id number])Malinda Late-Entry Occupational Therapy Treatment Note, 09/22/24 [id number] Patient seen for ADLs this morning and agreeable to treatment session upon OTR approach. She was sitting reclined in bed watching TV with O2 via nasal cannula on 3.0L. O2 saturation was WNL. Patient completed functional mobility to the bathroom using rollator with oxygen in place. Following toilet transfer and while in sitting, O2 saturation was 82% and patient performed breathing exercises until saturation reached 92%. Patient completed toileting with SBA then performed functional mobility to sink to perform hygiene and bathing while seated on rollator. O2 saturation dropped again to 82% while seated on rollator and oxygen increased to 4.0L in coordination with breathing exercises. Patient continued with self-bathing once O2 returned to 90%. She required MAX A to complete LB bathing and donning of socks and SBA to complete UB dressing and bathing with intermittent verbal cueing to coordinate breathing techniques and rest breaks during self-care. OTR educated patient on energy conservation strategies including performing activities in sitting and grouping activities to maximize efficiency. Will provide handouts tomorrow. Patient rinsed her mouth and brushed her hair with setup. Following self-care in sitting, patient performed functional mobility to chair where she was seated at session end with call light, cell phone, and bedside table within reach. O2 saturation was 92% at end of session and oxygen returned to 3.0L via nasal cannula. Will continue to see patient 1x/weekday throughout stay to address energy conservation, self- care, and activity tolerance. Initialized on 09/26/24 18:03 - END OF NOTE 09/26/24 17:58 Occupational Therapy Note by Venancio(L#[id number])Malinda Occupational Therapy Note OTR approached patient this morning at 0835. She was sitting on bed with arms behind her, propping herself up with breakfast plate on her lap. She reported to OTR that she was having a good morning and when OTR suggested she sitting EOB, in chair with back support, or raise the back of the bed for support, she declined. Treatment session held this morning as patient eating breakfast and requested time to finish. OTR spoke with IDT including PT/A and nursing re: increased O2 demand at rest. OT held this afternoon and will attempt to resume tomorrow, 09/27/24. Initialized on 09/26/24 17:58 - END OF NOTE 09/23/24 08:45 Occupational Therapy Note by Loreta (L#[id number])Tatyana 08:35: OT entered room and patient wanting to eat her breakfast. OT recommends for her to sit up in chair, but she does not want to due to back pain (RN recently administered pain medication). She was agreeable to sitting at edge of bed for her breakfast; completes t/f INDEP. Patient's o2 sat at 92% and HR 88 on 2lpm of supplemental O2. OT assisted patient with arranging her lap tray to reduce clutter and left a pulmonary exercise HEP in room. OT will return later in day to review with patient, so she can eat her breakfast. Addendum entered and electronically signed by Loreta Hu#[id number])Tatyana OT 09/23/24 13:46: 13:30: OT returned to room to review pulmonary exercises in which she demonstrates appropriate understanding. OT encourages patient to complete 2- 3x/day by picking 2 of the exercises to complete each time. Patient seen from 08:35-08:45 and 13:30-13:40 Initialized on 09/23/24 08:45 - END OF NOTE Initialized on 09/26/24 18:11 - END OF NOTE 09/26/24 18:03 Occupational Therapy Note by Venancio(L#[id number])Malinda Late-Entry Occupational Therapy Treatment Note, 09/22/24 [id number] Patient seen for ADLs this morning and agreeable to treatment session upon OTR approach. She was sitting reclined in bed watching TV with O2 via nasal cannula on 3.0L. O2 saturation was WNL. Patient completed functional mobility to the bathroom using rollator with oxygen in place. Following toilet transfer and while in sitting, O2 saturation was 82% and patient performed breathing exercises until saturation reached 92%. Patient completed toileting with SBA then performed functional mobility to sink to perform hygiene and bathing while seated on rollator. O2 saturation dropped again to 82% while seated on rollator and oxygen increased to 4.0L in coordination with breathing exercises. Patient continued with self-bathing once O2 returned to 90%. She required MAX A to complete LB bathing and donning of socks and SBA to complete UB dressing and bathing with intermittent verbal cueing to coordinate breathing techniques and rest breaks during self-care. OTR educated patient on energy conservation strategies including performing activities in sitting and grouping activities to maximize efficiency. Will provide handouts tomorrow. Patient rinsed her mouth and brushed her hair with setup. Following self-care in sitting, patient performed functional mobility to chair where she was seated at session end with call light, cell phone, and bedside table within reach. O2 saturation was 92% at end of session and oxygen returned to 3.0L via nasal cannula. Will continue to see patient 1x/weekday throughout stay to address energy conservation, self- care, and activity tolerance. Initialized on 09/26/24 18:03 - END OF NOTE 09/26/24 17:58 Occupational Therapy Note by Venancio(L#[id number])Malinda Occupational Therapy Note OTR approached patient this morning at 0835. She was sitting on bed with arms behind her, propping herself up with breakfast plate on her lap. She reported to OTR that she was having a good morning and when OTR suggested she sitting EOB, in chair with back support, or raise the back of the bed for support, she declined. Treatment session held this morning as patient eating breakfast and requested time to finish. OTR spoke with IDT including PT/A and nursing re: increased O2 demand at rest. OT held this afternoon and will attempt to resume tomorrow, 09/27/24. Initialized on 09/26/24 17:58 - END OF NOTE 09/26/24 14:12 Physical Therapy Note by Mac(L#[id number])Maci P.T. HELD TODAY PT'S O2 DEMAND SIGNIFICANTLY INCREASED AT REST. WILL ATTEMPT TO RESUME TOMORROW 09/27/24. Initialized on 09/26/24 14:12 - END OF NOTE 09/26/24 14:03 Case Management Note by Jeniffer Zapata PATIENT HAVING INCREASED DIFFICULTY BREATHING TODAY- PATIENT CONTINUES TO PLAN TO WORK WITH PT/OT TO MAXIMIZE HER TIME IN SWINGBED. WILL CONTINUE TO FOLLOW AND ASSESS NEEDS CLOSER TO TIME OF DC Initialized on 09/26/24 14:03 - END OF NOTE 09/26/24 13:55 Nutrition Note by Larissa Kaminski F/u Note: Note pt NPO today d/t breathing diff/testing. adm weight 43.1kg; current wt 40.2kg. Labs 09/26= BUN 24, glu 110, alb wnl. Recommend resuming po intake within 3 days. Will monitor and f/u prn. T.PRINCESS Kaminski Initialized on 09/26/24 13:55 - END OF NOTE Assessment/Plan (1) COPD exacerbation Current Visit: No Status: Acute Assessment & Plan: -08/28 to FluA -CXR 09/17/24 reviewed with Hyperinflated bilateral lungs likely COPD. Stable. Small nodular opacity in right mid zone. Stable. Prominent bilateral parahilar markings possibly bronchitis, stable. - Continue prednisone po, pulmicort, duonebs - Ceftriaxone and azithromycin now discontinued 09/24 - CBC. CMP reviewed - WBC elevated at 12.0 - BC x2 negative - Will need appointment with Dr. Pineda- pulm OP at d/c - transitioned to swing bed for activity intolerance per PT eval -Supplemental oxygen to maintain spo2 goal of >89% - patient now on 11L oxymizer - baseline RA -Repeat CXR with no new findings 09/26/24 -Obtain CT chest 09/27: -CT chest with No change compared to CT PE exam 10 days ago. Again diffuse respiration artifact limits pulmonary embolus evaluation. Again no obvious pulmonary embolus. Chronic findings including pulmonary emphysema, fibrosis/scarring, arteriosclerotic disease, chronic bony findings, fatty liver, and old granulomatous disease. -Oxygen now at 4LNC < 11L oxymizer -Consult Pulm -CBC reviewed wbc WNL -Continue solumedrol Code(s): J44.1 - CHRONIC OBSTRUCTIVE PULMONARY DISEASE W (ACUTE) EXACERBATION (2) D-dimer, elevated Current Visit: No Status: Acute Assessment & Plan: - D-dimer reviewed at 0.66 - CT negative for PE Code(s): R79.89 - OTHER SPECIFIED ABNORMAL FINDINGS OF BLOOD CHEMISTRY (3) Hypokalemia Current Visit: No Status: Acute Assessment & Plan: - resolved Code(s): E87.6 - HYPOKALEMIA (4) Hypoxia Current Visit: No Status: Acute Assessment & Plan: - Due to underlying influenza A/COPD - Blood gas reviewed patient is not retaining- on admission - CT chest -negative for PE - Currently on 4 L oxygen2 - downgraded from 11L ozymizer Code(s): R09.02 - HYPOXEMIA (5) Influenza A Current Visit: No Status: Acute Assessment & Plan: - Tamiflu completed - isolation Code(s): J10.1 - FLU DUE TO OTH IDENT INFLUENZA VIRUS W OTH RESP MANIFEST (6) Thrombocytopenia Current Visit: No Status: Acute Assessment & Plan: - PLT - trend - Likely will need OP f/u at d/c with hematology 09/27: -Resolved Erythrocytosis -most likely secondary to hypoxia - will trend Transaminitis -US abdomen -? reactive (7) Chronic pain syndrome Current Visit: No Status: Chronic Assessment & Plan: - Continue Methadone for chronic back and hip pain Code(s): G89.4 - CHRONIC PAIN SYNDROME (8) Hypothyroidism Current Visit: No Status: Chronic Assessment & Plan: - Continue synthroid Code(s): E03.9 - HYPOTHYROIDISM, UNSPECIFIED (9) Smoker Current Visit: No Status: Chronic Assessment & Plan: - nicotine patch - advised cessation Code(s): F17.200 - NICOTINE DEPENDENCE, UNSPECIFIED, UNCOMPLICATED (10) Underweight (BMI < 18.5) Current Visit: No Status: Chronic Assessment & Plan: - Nutrition consult - 2:2 to COPD? - Ensure high protein started with each meal Code(s): J44.1 - CHRONIC OBSTRUCTIVE PULMONARY DISEASE W (ACUTE) EXACERBATION (2) D-dimer, elevated Current Visit: No Status: Acute Code(s): R79.89 - OTHER SPECIFIED ABNORMAL FINDINGS OF BLOOD CHEMISTRY (3) Hypokalemia Current Visit: No Status: Acute Code(s): E87.6 - HYPOKALEMIA (4) Hypoxia Current Visit: No Status: Acute Code(s): R09.02 - HYPOXEMIA (5) Influenza A Current Visit: No Status: Acute Code(s): J10.1 - FLU DUE TO OTH IDENT INFLUENZA VIRUS W OTH RESP MANIFEST (6) Thrombocytopenia Current Visit: No Status: Acute (7) Chronic pain syndrome Current Visit: No Status: Chronic Code(s): G89.4 - CHRONIC PAIN SYNDROME (8) Hypothyroidism Current Visit: No Status: Chronic Code(s): E03.9 - HYPOTHYROIDISM, UNSPECIFIED (9) Smoker Current Visit: No Status: Chronic Code(s): F17.200 - NICOTINE DEPENDENCE, UNSPECIFIED, UNCOMPLICATED (10) Underweight (BMI < 18.5) Current Visit: No Status: Chronic Code(s): R63.6 - UNDERWEIGHT; Z68.1 - BODY MASS INDEX [BMI] 19.9 OR LESS, ADULT (11) Erythrocytosis Current Visit: Yes Status: Acute Code(s): D75.1 - SECONDARY POLYCYTHEMIA (12) Transaminitis Current Visit: Yes Status: Acute Code(s): R74.01 - ELEVATION OF LEVELS OF LIVER TRANSAMINASE LEVELS
--- NOTE | 2024-09-27 16:21 | XRAY ---
Indication: Elevated bilirubin. Two-dimensional right upper quadrant abdominal sonogram performed. Comparison: None Visualized liver and pancreas are homogeneous in echogenicity. No organomegaly or free fluid. Visualized gallbladder normally distended with a few small subcentimeter gallstones. No abnormal gallbladder wall thickening or pericholecystic fluid. Common bile duct measures 2.9 mm. No intrahepatic biliary distention. Right kidney measures 10.7 x 3.6 x 3.9 cm sonographically unremarkable. Impression: Cholelithiasis without cholecystitis or biliary distention. Remaining right upper quadrant sonogram is negative.
[2024-09-28 05:33] LABS: Absolute Neutrophil Ct (ANC) 9.41 x10^3/uL (1.56-6.13); BASOPHIL % 0.1 % (0.1-1.2); Basophil (Absolute #) 0.01 x10^3/uL (0.01-0.08); Eosinophil (Absolute #) 0 x10^3/uL (0.04-0.36); Hematocrit 49.7 % (34.1-44.9); Hemoglobin 16.4 g/dL (11.2-15.7); IMMATURE GRAN # 0.06 x10^3u/L (0.001-0.031); IMMATURE GRAN % 0.6 % (0.001-0.429); Lymphocyte (Absolute #) 0.46 x10^3/uL (1.18-3.74); Lymphocytes % 4.4 % (19.3-51.7); Mean Cell Volume 93.8 fL (79.4-94.8); Mean Corpuscular Hemoglobin 30.9 pg (25.6-32.2); Mean Platelet Volume 9.2 fL (9.4-12.3); Monocyte (Absolute #) 0.48 x10^3/uL (0.24-0.86); Monocytes % 4.6 % (4.7-12.5); Neutrophil % 90.3 % (34.0-71.1); Platelet Count 377 x10^3/uL (182-369); Red Cell Distribution Width 13.7 % (11.7-14.4); White Blood Count 10.4 x10^3/uL (3.98-10.04)
[2024-09-28 05:57] LABS: ALBUMIN 4.2 g/dL (3.5-5.0); ANION GAP 12.7 MEQ/L (5-15); BILIRUBIN,TOTAL 2.6 mg/dL (0.2-1.3); Creatinine 1 0.65 mg/dL (0.52-1.04); EST GLOMERULAR FILTRATION RATE 98.3 ML/MIN; Potassium 4.8 mmol/L (3.5-5.1); Total Protein 7.3 g/dL (6.3-8.2)
[2024-09-28 06:09] LABS: Slide Review 1 YES
[2024-09-28] MEDS: Advair Hfa 230/21 Mcg COMMON CANISTER IH SCH (19:05)
--- NOTE | 2024-09-29 14:55 | CONS ---
REASON FOR CONSULTATION: Evaluation of shortness of breath, hypoxia. HISTORY: The patient is a 64-year-old woman who has been admitted to [facility] over the past several days. The patient presented to the hospital with shortness of breath. She tested positive for influenza A. She was noted to have hypoxemia requiring supplemental oxygen. She has been treated with IV steroids and bronchodilators, along with antiviral therapy. Although she has clinically shown some improvement, she remains on oxygen. Every attempt to wean her off oxygen has not been successful. At the time of my evaluation, patient appears fairly comfortable. She is able to carry out a conversation. She does report nonproductive cough. She denies any significant shortness of breath prior to this admission, although her CT has shown evidence of emphysema. PAST MEDICAL HISTORY: Positive for chronic pain syndrome, anxiety problems. The patient has had abnormal liver function tests with an elevation in bilirubin. PAST SURGICAL HISTORY: No recent surgeries. HOME MEDICATIONS: Reviewed. ALLERGIES: Noted. SOCIAL HISTORY: The patient has been a smoker until this admission. LAB DATA AND TESTS: CT chest and labs have been reviewed. PHYSICAL EXAMINATION: GENERAL: This is a middle-aged woman, frail, comfortable. VITAL SIGNS: Noted. Currently on oxygen via nasal cannula at 4L. HEENT: Patient is normocephalic. Oral exam is limited. NECK: Unremarkable. CHEST: Diminished breath sounds, fairly clear. CARDIOVASCULAR: First and second heart sounds to be normal, regular, rhythmic. ABDOMEN: Soft. No rebound is noted. IMPRESSION: 1) This is a 64-year-old woman admitted with acute/chronic hypoxic respiratory failure. 2) Underlying chronic obstructive pulmonary disease, undiagnosed until this admission. 3) Recent influenza A. 4) Abnormal liver function tests, ?acalculous cholecystitis. 5) Frailty along with chronic pain syndrome. RECOMMENDATIONS: 1) I have reviewed current medication regimen. 2) Patient will benefit from controller medicine, and we will initiate Advair 230 two puffs twice daily. I advised the patient to rinse mouth. 3) Continue bronchodilators. 4) Patient will likely need and benefit from supplemental oxygen on discharge. 5) Need for complete smoking cessation was stressed. 6) Further recommendations awaiting clinical improvement. Discussed with patient. We will be available as needed.
[2024-09-30] MEDS: DELTASONE 20 MG PO SCH (21:09)
[2024-10-02 05:48] LABS: Absolute Neutrophil Ct (ANC) 7.09 x10^3/uL (1.56-6.13); Basophil (Absolute #) 0 x10^3/uL (0.01-0.08); Eosinophil (Absolute #) 0 x10^3/uL (0.04-0.36); Hematocrit 39.5 % (34.1-44.9); IMMATURE GRAN # 0.05 x10^3u/L (0.001-0.031); IMMATURE GRAN % 0.6 % (0.001-0.429); Lymphocyte (Absolute #) 0.33 x10^3/uL (1.18-3.74); Lymphocytes % 4.2 % (19.3-51.7); Mean Cell Volume 95.4 fL (79.4-94.8); Mean Corpuscular Hemoglobin 31.4 pg (25.6-32.2); Mean Corpuscular Hgb Concent. 32.9 g/dL (32.2-35.5); Mean Platelet Volume 9.1 fL (9.4-12.3); Monocyte (Absolute #) 0.38 x10^3/uL (0.24-0.86); Monocytes % 4.8 % (4.7-12.5); Neutrophil % 90.4 % (34.0-71.1); Platelet Count 189 x10^3/uL (182-369); Red Blood Count 4.14 x10^6/uL (3.93-5.22); Red Cell Distribution Width 13.6 % (11.7-14.4); White Blood Count 7.9 x10^3/uL (3.98-10.04)
[2024-10-02 06:07] LABS: ALBUMIN 3.2 g/dL (3.5-5.0); ANION GAP 7.1 MEQ/L (5-15); BILIRUBIN,TOTAL 1.3 mg/dL (0.2-1.3); Calcium 8.2 mg/dL (8.4-10.2); Creatinine 1 0.6 mg/dL (0.52-1.04); EST GLOMERULAR FILTRATION RATE 100.2 ML/MIN; Total Protein 5.6 g/dL (6.3-8.2)
[2024-10-02 09:40] LABS: Slide Review 1 YES
[2024-10-02] MEDS: DOLOPHINE 10MG Tablet PO SCH (13:23)
[2024-10-03 07:40] VITALS: BP 139/69; RESP 16; TEMP 97.9
[2024-10-03 10:15] VITALS: PULSE 95; O2SAT 98
--- NOTE | 2024-10-03 13:00 | PCM.DS ---
Discharge Summary Date of Admission: 09/20/24 13:05 Date of Discharge: 10/03/24 Admitting Physician: MARIUM FREEMAN MD Consults: Consults on Case 09/20/24 13:17 Nutritional Consult ROUTINE 09/27/24 09:46 Consult Pulmonology ROUTINE Primary Care Provider: DISHA MACKEY JR Allergies Allergies morphine Allergy (Severe, Verified 07/23/23 12:43) Vomiting Penicillins Allergy (Severe, Verified 07/23/23 12:43) convulsions Hospital Summary - Hospital Course Hospital Course: Ms. Robbins is a 64-year-old female with a history of chronic pain syndrome, hypothyroidism, and COPD, who presented to the ER on 09/17/24 with a 3-day history of shortness of breath. Upon arrival, she was desaturating and started on 8L oxygen. Labs showed mild abnormalities, and a chest X-ray revealed chronic emphysema and left lung atelectasis, while a CT chest ruled out pulmonary embolism. She tested positive for Influenza A and was treated with steroids, breathing therapy, and admitted for further management. She continued to experience activity intolerance and was transitioning to a swing bed, with her treatment focused on managing her flu and COPD exacerbation with Tamiflu, antibiotics, and steroids. On 09/25/24, her dyspnea worsened, requiring increased oxygen to 11L oxymizer. A chest X-ray on 09/26/24 showed no new cardiopulmonary abnormalities, and a CT chest confirmed no pulmonary embolus, with chronic findings of emphysema, fibrosis, arteriosclerosis, and fatty liver. On 09/27/24, she showed improvement, with oxygen requirements reduced from 11L to 4L. A US was ordered due to transaminitis, but she had no abdominal complaints. By 10/03/24, Ms. Robbins was feeling much better and ready for discharge. She no longer had activity intolerance, her lung sounds were clear, and she had no further concerns. A respiratory therapist evaluated her for home oxygen, and case management arranged to set it up. - Vitals & Intake/Output Vital Signs: Vital Signs Temperature 97.9 F 10/03/24 07:39 Pulse Rate 95 H 10/03/24 10:12 Respiratory Rate 16 10/03/24 10:12 Blood Pressure 139/69 10/03/24 07:39 O2 Sat by Pulse Oximetry 98 10/03/24 10:12 Intake & Output: Intake & Output 10/01/24 10/02/24 10/03/24 10/04/24 10:59 11:59 11:59 11:59 Intake Total 300 Output Total 500 Balance -200 Weight 40.8 kg - Lab Result Diagrams: 10/02/24 05:35 10/02/24 05:35 - Procedures and Test Procedures and Tests throughout Hospitalization: Therapy Orders & Screens 09/20/24 13:17 PT Eval & Treat (MD Order) ONCE Reason for Eval:: DECONDITIONING, SWINGBED Diagnosis: EXAC COPD, ACUTE HYPOXIC RESP FX, INFLUENZA A Flutter Therapy UD Comment: Diagnosis: EXAC COPD, ACUTE HYPOXIC RESP FX, INFLUENZA A Oxygen Nasal Cannula 3 lpm Comment: RT Miscellaneous Order ROUTINE Comment: Physician Instructions: Baseline RA Reason For Exam: wean O2 PRN keep sat > 92% Diagnosis: Shortness of breath OT Eval and Treat (MD Order) ONCE Comment: Physician Instructions: Reason For Exam: Diagnosis: EXAC COPD, ACUTE HYPOXIC RESP FX, INFLUENZA A 09/20/24 15:24 Respiratory Therapy Assessment DAILY Comment: Diagnosis: swing bed admission: EXAC COPD, ACUTE HYPOXIC RESP FX, INFLUENZA A 09/20/24 17:12 PT Clarification Order ROUTINE Comment: Physician Instructions: Reason For Exam: PT Clarification: P.T. TO TX 5X/WK UNTIL D/C TO ADDRESS FUNCTIONAL MOBILITY AND GAIT TRAINING, THER, EX, BALANCE RE-ED, ENERGY CONSERVATION, AND PT. ED. TO MAXIMIZE FUNCTIONAL POTENTIAL FOR SAFE RETURN HOME. Discharge Exam General Appearance: no apparent distress, alert Neurologic Exam: alert, 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, cooperative, normal mood/affect, nml cerebellar function, sensation nml, No motor deficits Eye Exam: PERRL, EOMI, eyes nml inspection Ears, Nose, Throat Exam: normal ENT inspection, pharynx normal, moist mucous membranes Neck Exam: normal inspection, non-tender, supple, full range of motion Respiratory Exam: normal breath sounds, lungs clear, No respiratory distress Cardiovascular Exam: regular rate/rhythm, normal heart sounds Gastrointestinal/Abdomen Exam: soft, No tenderness, No mass Pelvic Exam: deferred Rectal Exam: deferred Back Exam: normal inspection, normal range of motion, No CVA tenderness, No vertebral tenderness Extremity Exam: normal inspection, normal range of motion Skin Exam: normal color, warm, dry Final Diagnosis/Problem List - Final Discharge Diagnosis/Problem (1) COPD exacerbation Current Visit: No Status: Acute Assessment & Plan: - CT reviewed - O2 2lNC 99% - RT Eval for home O2 - Case management to set up home O2 - Completed antibiotics Code(s): J44.1 - CHRONIC OBSTRUCTIVE PULMONARY DISEASE W (ACUTE) EXACERBATION (2) D-dimer, elevated Current Visit: No Status: Acute Assessment & Plan: - D-dimer reviewed at 0.66 - CT negative for PE Code(s): R79.89 - OTHER SPECIFIED ABNORMAL FINDINGS OF BLOOD CHEMISTRY (3) Hypokalemia Current Visit: No Status: Resolved Assessment & Plan: - resolved Code(s): E87.6 - HYPOKALEMIA (4) Hypoxia Current Visit: No Status: Resolved Assessment & Plan: - resolved Code(s): R09.02 - HYPOXEMIA (5) Influenza A Current Visit: No Status: Resolved Assessment & Plan: - completed tamiflu and taken out of isolation Code(s): J10.1 - FLU DUE TO OTH IDENT INFLUENZA VIRUS W OTH RESP MANIFEST (6) Thrombocytopenia Current Visit: No Status: Resolved Assessment & Plan: - resolved (7) Erythrocytosis Current Visit: Yes Status: Acute Assessment & Plan: -most likely secondary to hypoxia Code(s): D75.1 - SECONDARY POLYCYTHEMIA (8) Transaminitis Current Visit: Yes Status: Resolved Assessment & Plan: - resolved - US negative Code(s): R74.01 - ELEVATION OF LEVELS OF LIVER TRANSAMINASE LEVELS - Discharge Discharge Date: 10/03/24 Disposition: Home, Self-Care Condition: Stable Prescriptions: Continue Levothyroxine Sodium 25 Mcg [Synthroid 25 Mcg] 25 mcg PO DAILY Methadone HCl 5 mg PO UD Tizanidine HCl 2 mg PO TID Oseltamivir 75 mg [Tamiflu 75MG Capsule] 75 mg PO BID 3 Days #6 cap Fluticasone/Salmeterol 115/21 [Advair Hfa 115/21 Common canister*] 2 puff IH BIDRT 30 Days #1 inhaler Albuterol Sulfate [Albuterol Sulfate Hfa] 8.5 gm IH Q6HPRN PRN 30 Days #1 inh PRN Reason: Cough Doxycycline Hyclate 100 mg [Vibramycin 100 MG] 100 mg PO BID 7 Days #14 tab Discontinued Prednisone 20 mg [Deltasone 20 mg] 20 mg PO BID 5 Days #10 tablet Instructions: Oxygen therapy at home Additional Instructions: WEAR 2L/NC AT ALL TIMES- ESPECIALLY WHEN WALKING AND SLEEPING CALL DENISSE WHEN YOU LEAVE [facility] AT [phone] SO THEY CAN DELIVER YOUR HOME [facility] HAS BEEN SET UP FOR YOU. THEY WILL CALL YOU TO MAKE AN APT TO COME SEE YOU. THEIR PHONE NUMBER IS [phone] Follow up with: YANNICK ELDER [CONSULTING PHYSICIAN] - 11/04/24 9:30 am DISHA MACKEY JR [Primary Care Provider] - Office will call patient KIM ARAGON MD [NON-STAFF PHY W/O PRIVILEGES] - 10/06/24 2:00 pm
== END 2024-10-03 13:24 | disposition home or self-care (01) | DRG 191 ==
LOC: MED SURG 13:05
PROVIDERS: ADMIT Internal Medicine; ATTEND Internal Medicine
DX: J44.1 Chronic obstructive pulmonary disease with (acute) exacerbation (principal); E87.1 Hypo-osmolality and hyponatremia; Z68.1 Body mass index [BMI] 19.9 or less, adult; R79.89 Other specified abnormal findings of blood chemistry; E87.6 Hypokalemia; R09.02 Hypoxemia; J10.1 Influenza due to other identified influenza virus with other respiratory manifestations; D69.6 Thrombocytopenia, unspecified; D75.1 Secondary polycythemia; R74.01 Elevation of levels of liver transaminase levels; E03.9 Hypothyroidism, unspecified; F17.200 Nicotine dependence, unspecified, uncomplicated; G89.4 Chronic pain syndrome; Z85.43 Personal history of malignant neoplasm of ovary; Z79.899 Other long term (current) drug therapy; R63.6 Underweight
CPT/HCPCS: 36415; 71045; 71260; 76705; 80053; 81001; 85025; 85027; 94640; 94667; 94760; 94762; J0456; J0696; J1650; J2919; 97110-GP; A9270-GY

== ENCOUNTER 2025-05-11 13:13 | Emergency (ER) | payer MEDICARE ==
[2025-05-11 13:21] VITALS: TEMP 98.7
[2025-05-11] MEDS ORDERED: DUONEB 0.5-3 MG/3 ml Neb IH ONE (13:38)
[2025-05-11] MEDS: DUONEB 0.5-3 MG/3 ml Neb IH ONE ×2 (13:42)
[2025-05-11 13:49] LABS: BASOPHIL % 0.7 % (0.1-1.2); Basophil (Absolute #) 0.04 x10^3/uL (0.01-0.08); Eosinophil (Absolute #) 0.04 x10^3/uL (0.04-0.36); Hematocrit 40.3 % (34.1-44.9); Hemoglobin 12.7 g/dL (11.2-15.7); IMMATURE GRAN # 0.02 x10^3u/L (0.001-0.031); IMMATURE GRAN % 0.3 % (0.001-0.429); Lymphocyte (Absolute #) 1.22 x10^3/uL (1.18-3.74); Mean Corpuscular Hemoglobin 30.9 pg (25.6-32.2); Mean Corpuscular Hgb Concent. 31.5 g/dL (32.2-35.5); Monocyte (Absolute #) 0.55 x10^3/uL (0.24-0.86); NUCLEATED RBC # 0.00 x10^3u/L (0.00-0.012); NUCLEATED RBC % 0.0 % (0.00-0.2); Platelet Count 249 x10^3/uL (182-369); Red Blood Count 4.11 x10^6/uL (3.93-5.22); White Blood Count 6.0 x10^3/uL (3.98-10.04)
[2025-05-11 13:54] VITALS: O2SAT 97
[2025-05-11] MEDS ORDERED: Sterile H2O 10 ml IJ ONE (13:54)
--- NOTE | 2025-05-11 13:54 | ERPHSYRPT ---
- History of Present Illness Time Seen by Provider: 05/11/25 13:30 Source: patient, family Patient Subjective Stated Complaint: pt here for increase sob for last week, no fever, dry cough, states wears here o2 at night but has had to wear in / for last 3 days, Triage Nursing Assessment: pt alert, walked in, resp labored at times, o2 at 3 lnc as per home, chest diminished, occ cough. no edema noted, moves all ext well, mucus membranes Physician History: 65-year-old female with history of tobacco use on home oxygen with COPD. Patient presents for increased cough for 5 days. States that she has been wheezing. Has not coughed up any phlegm. Feels congested. Denies any exertional chest pain. Reports occasionally feels chest tightness. She states that she had a negative cardiac testing early in the year. No lower extremity swelling. She reports the symptoms are consistent with COPD constipation. She reports she does not have a nebulizer at home but has been using her home oxygen during the daytime. Allergies/Adverse Reactions: morphine Allergy (Severe, Verified 05/11/25 13:15) Vomiting Penicillins Allergy (Severe, Verified 05/11/25 13:15) convulsions Home Medications: Levothyroxine Sodium 25 Mcg [Synthroid 25 Mcg] 25 mcg PO DAILY 06/06/16 [History] Methadone HCl 5 mg PO UD 04/24/21 [History] Tizanidine HCl 2 mg PO TID 04/24/21 [History] Cyanocobalamin (Vitamin B-12) [Vitamin B12] 5,000 mcg PO DAILY 05/11/25 [History] Hx Tetanus, Diphtheria Vaccination/Date Given: Yes Hx Influenza Vaccination/Date Given: No Hx Pneumococcal Vaccination/Date Given: No Immunizations Up to Date: Yes Travel Risk - International Travel Have you traveled outside of the country in past 3 weeks: No - Emerging Infectious Disease Are you exhibiting symptoms associated with any current EIDs: No Symptoms: Joint Pain, Shortness of Breath - Review of Systems Constitutional: No Fever, No Chills Eyes: No Symptoms Ears, Nose, & Throat: No Symptoms Respiratory: Cough, Dyspnea, Wheezing Cardiac: No Chest Pain, No Edema, No Syncope Abdominal/Gastrointestinal: No Abdominal Pain, No Nausea, No Vomiting, No Diarrhea Genitourinary Symptoms: No Dysuria Musculoskeletal: No Back Pain, No Neck Pain Skin: No Rash Neurological: No Dizziness, No Focal Weakness, No Sensory Changes Psychological: No Symptoms Endocrine: No Symptoms All Other Systems: Reviewed and Negative - Past Medical History Pertinent Past Medical History: Yes Neurological History: Migraines ENT History: No Pertinent History Cardiac History: No Pertinent History Respiratory History: COPD Endocrine Medical History: Hypothyroidism Musculoskeletal History: Other GI Medical History: No Pertinent History History: No Pertinent History Psycho-Social History: No Pertinent History Female Reproductive Disorders: Ovarian Cancer Other Medical History: chronic hip problem since 3 years of age - chronic back; anemia - Past Surgical History Past Surgical History: Yes Neuro Surgical History: No Pertinent History Cardiac: No Pertinent History Respiratory: No Pertinent History Gastrointestinal: Appendectomy, Hemorrhoidectomy Genitourinary: No Pertinent History Musculoskeletal: Joint Replacement, Other Female Surgical History: Hysterectomy Other Surgical History: 12 hip surgeries (3 R hip replacements). spine surgery. L leg surgery (limb reduction) Significant Family History: no pertinent family hx - Social History Smoking Status: Current every day smoker How long have you smoked: 45 years Exposure to second hand smoke: Yes Drug Use: none - Social Determinants of Health Will the patient participate in the screening: Yes Do you worry about a steady place to live?: No Do you have any problems with any of the following?: No known problems In the past 12 months,have you had to go without utilities?: No Transportation Issues: No Has anyone in your support network made you feel unsafe?: No Have you or anyone in your house had to go w/o enough food: No - Nursing Vital Signs Nursing Vital Signs: Initial Vital Signs Temperature 98.7 F 05/11/25 13:19 Pulse Rate 78 05/11/25 13:19 Respiratory Rate 14 05/11/25 13:19 Blood Pressure 146/60 05/11/25 13:19 O2 Sat by Pulse Oximetry 97 05/11/25 13:19 Pain Scale Pain Intensity 0 - Physical Exam General Appearance: no apparent distress Eye Exam: PERRL/EOMI, eyes nml inspection Ears, Nose, Throat Exam: normal ENT inspection, TMs normal, pharynx normal, moist mucous membranes Neck Exam: normal inspection, non-tender, supple, full range of motion Respiratory Exam: respiratory distress, other (Patient with diminished breath sounds bilaterally, wheezing, talking in complete sentences, no respiratory distress) Cardiovascular Exam: regular rate/rhythm, normal heart sounds, normal peripheral pulses Gastrointestinal/Abdomen Exam: soft, normal bowel sounds, No tenderness, No mass Back Exam: normal inspection, normal range of motion, No CVA tenderness, No vertebral tenderness Extremity Exam: normal inspection, normal range of motion, pelvis stable Neurologic Exam: alert, 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, cooperative, normal mood/affect, nml cerebellar function, nml station & gait, sensation nml, No motor deficits Skin Exam: normal color, warm, dry, No rash Lymphatic Exam: No adenopathy SpO2: 97 Ordered Tests: Active Orders 24 hr Category Date Time Status EKG-ER Only STAT Care 05/11/25 13:31 Active Isolation, Initiate & Maintain STAT Care 05/11/25 13:33 Active CHEST 1 VIEW (PORTABLE) Stat Exams 05/11/25 13:32 Completed BMP Stat Lab 05/11/25 13:44 Completed CBC W DIFF Stat Lab 05/11/25 13:44 Completed NT PRO BNPII Stat Lab 05/11/25 13:44 Completed TROPONIN Stat Lab 05/11/25 13:44 Completed Respiratory Therapy Assessment DAILY RT 05/11/25 13:46 Active Medication Summary Discontinued Medications Generic Name Dose Route Start Last Admin Trade Name Freq PRN Reason Stop Dose Admin Albuterol/Ipratropium 3 ml 05/11/25 13:32 05/11/25 13:42 Ipratropium/Albuterol Sulfate 3 Ml Ampul.Neb IH 05/11/25 13:33 3 ml STAT ONE Administration Albuterol/Ipratropium 3 ml 05/11/25 13:33 05/11/25 13:42 Ipratropium/Albuterol Sulfate 3 Ml Ampul.Neb IH 05/11/25 13:34 3 ml STAT ONE Administration Albuterol/Ipratropium Confirm 05/11/25 13:38 Ipratropium/Albuterol Sulfate 3 Ml Ampul.Neb Administered 05/11/25 13:39 Dose 6 ml IH .STK-MED ONE Methylprednisolone Sodium 0 mg 05/11/25 13:33 05/11/25 13:56 Succinate 125 mg/ Sterile IV 05/11/25 13:34 125 mg Water 2 ml STAT ONE Administration Methylprednisolone Sodium Succinate Confirm 05/11/25 13:54 Methylprednis Sod Succ 125 Mg/2 Ml Vial Administered 05/11/25 13:55 Dose 125 mg .ROUTE .STK-MED ONE Sterile Water Confirm 05/11/25 13:54 Water For Injection,Sterile 10 Ml Vial Administered 05/11/25 13:55 Dose 10 ml IJ .STK-MED ONE Lab/Rad Data: Laboratory Result Diagrams 05/11/25 13:44 05/11/25 13:44 Laboratory Results 05/11/25 05/11/25 05/11/25 Range/Units 13:44 13:44 13:44 WBC 6.0 (3.98-10.04) x10^3/uL RBC 4.11 (3.93-5.22) x10^6/uL Hgb 12.7 (11.2-15.7) g/dL Hct 40.3 (34.1-44.9) % MCV 98.1 H (79.4-94.8) fL MCH 30.9 (25.6-32.2) pg MCHC 31.5 L (32.2-35.5) g/dL RDW 14.7 H (11.7-14.4) % Plt Count 249 (182-369) x10^3/uL MPV 8.6 L (9.4-12.3) fL Gran % 68.8 (34.0-71.1) % Immature Gran % (Auto) 0.3 (0.001-0.429) % Nucleat RBC Rel Count 0.0 (0.00-0.2) % Eos # (Auto) 0.04 (0.04-0.36) x10^3/uL Immature Gran # (Auto) 0.02 (0.001-0.031) x10^3u/L Absolute Lymphs (auto) 1.22 (1.18-3.74) x10^3/uL Absolute Monos (auto) 0.55 (0.24-0.86) x10^3/uL Absolute Nucleated RBC 0.00 (0.00-0.012) x10^3u/L Lymphocytes % 20.3 (19.3-51.7) % Monocytes % 9.2 (4.7-12.5) % Eosinophils % 0.7 (0.7-5.8) % Basophils % 0.7 (0.1-1.2) % Absolute Granulocytes 4.14 (1.56-6.13) x10^3/uL Basophils # 0.04 (0.01-0.08) x10^3/uL Sodium 138 (135-145) mmol/L Potassium 4.4 (3.5-5.1) mmol/L Chloride 101 (98-107) mmol/L Carbon Dioxide 33 H (22-30) mmol/L Anion Gap 8.6 (5-15) MEQ/L BUN 11 (7-17) mg/dL Creatinine 0.65 (0.52-1.04) mg/dL Estimated GFR 97.7 ML/MIN Glucose 102 (74-106) mg/dL Calcium 8.8 (8.4-10.2) mg/dL Troponin I < 0.012 (0.000-0.033) ng/mL NT-Pro-B Natriuret Pep 76.1 (<300) pg/mL This x-ray was unremarkable for pneumonia - Progress Progress: improved Progress Note: 05/11/25 14:38 She had repeat exams x 2. She continues to improve. She reports that her shortness of breath is resolved she feels comfortable with outpatient discharge. Plan to discharge patient with prednisone albuterol nebulizer and doxycycline. She was given follow-up return instructions. - Departure Clinical Impression: COPD exacerbation Condition: Good Critical Care Time: No Referrals: DISHA MACKEY JR [Primary Care Provider, ORTHOPEDICS] - Follow up/PCP as directed Additional Instructions: Use the nebulizer machine every 4-6 hours the next several days as needed for cough or wheezing. Take other medications as prescribed. Return for worsening symptoms or concern Prescriptions: Albuterol 2.5 mg/3 ml Neb [Proventil 2.5 mg/3 ml Neb] 2.5 mg IH Q6H PRN 14 Days #1 cartridge Prednisone 20 mg [Deltasone 20 mg] 40 mg PO DAILY 4 Days #4 tablet Doxycycline Hyclate 100 mg [Vibramycin 100 MG] 100 mg PO BID 7 Days #14 tab
[2025-05-11] MEDS: solu-MEDROL 125 MG, Sterile H2O 10 ml 2 ML IV ONE (13:56)
[2025-05-11 14:12] LABS: Calcium 8.8 mg/dL (8.4-10.2); Carbon Dioxide 33 mmol/L (22-30); Creatinine 1 0.65 mg/dL (0.52-1.04); EST GLOMERULAR FILTRATION RATE 97.7 ML/MIN; Glucose 102 mg/dL (74-106); Potassium 4.4 mmol/L (3.5-5.1); TROPONIN < 0.012 ng/mL (0.000-0.033)
--- NOTE | 2025-05-11 14:14 | XRAY ---
Indication: Dyspnea. Comparison: September 26, 2024 Portable chest is now clear again with COPD and tiny right lung calcified granuloma. Heart not enlarged. Bony thorax intact again with osteopenia. No new/acute findings.
[2025-05-11 14:52] VITALS: BP 135/68; PULSE 73; RESP 12
== END 2025-05-11 15:04 | disposition home or self-care (01) ==
LOC: ED 13:13
DX: J44.1 Chronic obstructive pulmonary disease with (acute) exacerbation (principal); R05.1 Acute cough; Z79.52 Long term (current) use of systemic steroids; Z79.899 Other long term (current) drug therapy; Z72.0 Tobacco use

== ENCOUNTER 2025-06-09 09:46 | Emergency (ER) | payer MEDICARE ==
--- NOTE | 2025-06-09 09:58 | ERPHSYRPT ---
- History of Present Illness Time Seen by Provider: 06/09/25 09:58 Source: patient, EMS, old records Exam Limitations: clinical condition Physician History: This is a thin 65-year-old white female patient who arrives by the [employer] service secondary to sudden onset of shortness of breath that occurred this morning. Patient denies increased breathing difficulty over the last several days. She denies chest pain. She has not had a fever. She has had a cough. She has had no nausea vomiting or diarrhea symptoms. The paramedics provided her with a nebulizer treatment in addition to 125 mg of intravenous Solu-Medrol. Her symptoms had improved. However, suddenly, on 5 L of oxygen via nasal cannula, her oxygen saturation level dropped to 87%. Respiratory therapy was contacted and we will be providing her with an additional nebulizer treatment, ABG and put her on BiPAP. Patient has a history of migraine headaches, hypothyroidism, COPD and chronic low back pain. Patient continues to smoke tobacco cigarettes. Timing/Duration: today Activities at Onset: none Severity of Dyspnea-Max: moderate Severity of Dyspnea-Current: moderate Possible Cause: frequent episodes Modifying Factors: Improves With: albuterol nebulizer, oxygen Associated Symptoms: anxiety, cough, No chest pain/discomfort, No fever, No painful breathing Allergies/Adverse Reactions: morphine Allergy (Severe, Verified 05/11/25 13:15) Vomiting Penicillins Allergy (Severe, Verified 05/11/25 13:15) convulsions Home Medications: Levothyroxine Sodium 25 Mcg [Synthroid 25 Mcg] 25 mcg PO DAILY 06/06/16 [History] Methadone HCl 5 mg PO UD 04/24/21 [History] Tizanidine HCl 2 mg PO TID 04/24/21 [History] Cyanocobalamin (Vitamin B-12) [Vitamin B12] 5,000 mcg PO DAILY 05/11/25 [History] Hx Tetanus, Diphtheria Vaccination/Date Given: Yes Hx Influenza Vaccination/Date Given: No Hx Pneumococcal Vaccination/Date Given: No Travel Risk - International Travel Have you traveled outside of the country in past 3 weeks: No - Emerging Infectious Disease Are you exhibiting symptoms associated with any current EIDs: No Symptoms: Joint Pain, Shortness of Breath - Review of Systems Constitutional: No Symptoms Eyes: No Symptoms Ears, Nose, & Throat: No Symptoms Respiratory: Cough, Dyspnea Cardiac: No Symptoms, No Chest Pain Abdominal/Gastrointestinal: No Symptoms Genitourinary Symptoms: No Symptoms Musculoskeletal: No Symptoms Skin: No Symptoms Neurological: No Symptoms Psychological: No Symptoms Endocrine: No Symptoms Hematologic/Lymphatic: No Symptoms Immunological/Allergic: No Symptoms All Other Systems: Reviewed and Negative - Past Medical History Pertinent Past Medical History: Yes Neurological History: Migraines ENT History: No Pertinent History Cardiac History: No Pertinent History Respiratory History: COPD Endocrine Medical History: Hypothyroidism Musculoskeletal History: Other GI Medical History: No Pertinent History History: No Pertinent History Psycho-Social History: No Pertinent History Female Reproductive Disorders: Ovarian Cancer Other Medical History: chronic hip problem since 3 years of age - chronic back; anemia - Past Surgical History Past Surgical History: Yes Neuro Surgical History: No Pertinent History Cardiac: No Pertinent History Respiratory: No Pertinent History Gastrointestinal: Appendectomy, Hemorrhoidectomy Genitourinary: No Pertinent History Musculoskeletal: Joint Replacement, Other Female Surgical History: Hysterectomy Other Surgical History: 12 hip surgeries (3 R hip replacements). spine surgery. L leg surgery (limb reduction) Significant Family History: no pertinent family hx - Social History Smoking Status: Current every day smoker How long have you smoked: 45 years Exposure to second hand smoke: Yes Drug Use: none - Social Determinants of Health Will the patient participate in the screening: Yes Do you worry about a steady place to live?: No In the past 12 months,have you had to go without utilities?: No Transportation Issues: No Has anyone in your support network made you feel unsafe?: No Have you or anyone in your house had to go w/o enough food: No - Nursing Vital Signs Nursing Vital Signs: Initial Vital Signs Temperature 98.3 F 06/09/25 09:47 Pulse Rate 112 H 06/09/25 09:47 Respiratory Rate 34 H 06/09/25 09:47 Blood Pressure 191/121 06/09/25 09:47 O2 Sat by Pulse Oximetry 89 L 06/09/25 09:47 Pain Scale Pain Intensity 0 - Physical Exam General Appearance: moderate distress, alert, anxiety, thin Eye Exam: PERRL/EOMI, eyes nml inspection Ears, Nose, Throat Exam: hearing grossly normal, normal ENT inspection, normal pharynx Neck Exam: normal inspection, non-tender, supple, full range of motion Respiratory Exam: respiratory distress, airway intact, accessory muscle use, rhonchi, No chest tenderness, No wheezing, No stridor Cardiovascular/Chest Exam: tachycardia Rectal Exam: not done Extremity Exam: non-tender, normal range of motion, No normal inspection Neurologic Exam: alert, 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, cooperative, cannon pinion adjuster II-XII nml as tested, sensation nml Skin Exam: normal color, warm, dry Lymphatic Exam: No adenopathy SpO2 Interpretation: borderline oxygenation, ABG ordered, airway management int. O2 Delivery: Nasal Cannula (5 L nasal cannula) - Course Nursing assessment & vital signs reviewed: Yes EKG Interpreted by Me: RATE (85), Sinus Rhythm, NORMAL AXIS, NORMAL INTERVALS, NORMAL QRS, Other (I do not appreciate an acute ischemic event. The computer readout is likely secondary to the tachycardia she is experiencing. QTc is 436. We will repeat the twelve-lead EKG.) Ordered Tests: Active Orders 24 hr Category Date Time Status Functional Analyst STAT Care 06/09/25 09:59 Active EKG-ER Only STAT Care 06/09/25 09:58 Completed EKG-ER Only STAT Care 06/09/25 10:15 Completed EKG-ER Only STAT Care 06/09/25 11:41 Completed IV Insertion STAT Care 06/09/25 09:58 Active Pulse Oximetry (ED) STAT Care 06/09/25 09:58 Active CHEST 1 VIEW (PORTABLE) Stat Exams 06/09/25 11:32 Completed ARTERIAL BLOOD GASES Stat Lab 06/09/25 10:20 Completed BLOOD CULTURE Stat Lab 06/09/25 10:40 Received CBC W DIFF Stat Lab 06/09/25 10:40 Completed CMP Stat Lab 06/09/25 10:40 Completed D-DIMER QUANTITATIVE Stat Lab 06/09/25 10:40 Completed Lactic Acid Stat Lab 06/09/25 10:20 Completed Lactic Acid Stat Lab 06/09/25 12:40 Completed MAGNESIUM Stat Lab 06/09/25 10:40 Completed NT PRO BNPII Stat Lab 06/09/25 10:40 Completed TROPONIN Q4H Lab 06/09/25 10:40 Completed TROPONIN Q4H Lab 06/09/25 12:45 Completed TROPONIN Q4H Lab 06/09/25 14:30 Completed BiPap/CPAP STAT RT 06/09/25 09:58 Active Respiratory Therapy Assessment DAILY RT 06/09/25 10:22 Active Medication Summary Discontinued Medications Generic Name Dose Route Start Last Admin Trade Name Freq PRN Reason Stop Dose Admin Albuterol/Ipratropium Confirm 06/09/25 10:08 Ipratropium/Albuterol Sulfate 3 Ml Ampul.Neb Administered 06/09/25 10:09 Dose 3 ml IH .STK-MED ONE Albuterol/Ipratropium 3 ml 06/09/25 10:22 06/09/25 10:23 Ipratropium/Albuterol Sulfate 3 Ml Ampul.Neb IH 06/09/25 10:23 3 ml STAT ONE Administration Aspirin 324 mg 06/09/25 10:36 06/09/25 10:42 Aspirin 81 Mg Tab.Chew PO 06/09/25 10:37 324 mg STAT ONE Administration Aspirin Confirm 06/09/25 10:41 Aspirin 81 Mg Tab.Chew Administered 06/09/25 10:42 Dose 324 mg .ROUTE .STK-MED ONE Heparin Sodium (Beef Lung) 5,000 unit 06/09/25 10:36 06/09/25 10:42 Heparin 5000 Units/0.5 Ml 5,000 Unit/0.5 Ml Syr IV 06/09/25 10:37 5,000 unit STAT ONE Administration Heparin Sodium (Beef Lung) Confirm 06/09/25 10:42 Heparin 5000 Units/0.5 Ml 5,000 Unit/0.5 Ml Syr Administered 06/09/25 10:43 Dose 5,000 unit .ROUTE .STK-MED ONE Sodium Chloride 1,000 mls @ 999 mls/hr 06/09/25 11:31 06/09/25 12:41 Sodium Chloride 0.9% 1000 Ml IV 06/09/25 12:31 Infused .Q1H1M STA Infusion Sodium Chloride Confirm 06/09/25 11:34 Sodium Chloride 0.9% 1000 Ml Administered 06/09/25 11:35 Dose 1,000 mls @ ud .ROUTE .STK-MED ONE Lab/Rad Data: Laboratory Result Diagrams 06/09/25 10:40 06/09/25 10:40 Laboratory Results 06/09/25 06/09/25 06/09/25 Range/Units 14:30 12:45 12:40 WBC (3.98-10.04) x10^3/uL RBC (3.93-5.22) x10^6/uL Hgb (11.2-15.7) g/dL Hct (34.1-44.9) % MCV (79.4-94.8) fL MCH (25.6-32.2) pg MCHC (32.2-35.5) g/dL RDW (11.7-14.4) % Plt Count (182-369) x10^3/uL MPV (9.4-12.3) fL Gran % (34.0-71.1) % Immature Gran % (Auto) (0.001-0.429) % Nucleat RBC Rel Count (0.00-0.2) % Eos # (Auto) (0.04-0.36) x10^3/uL Immature Gran # (Auto) (0.001-0.031) x10^3u/L Absolute Lymphs (auto) (1.18-3.74) x10^3/uL Absolute Monos (auto) (0.24-0.86) x10^3/uL Absolute Nucleated RBC (0.00-0.012) x10^3u/L Lymphocytes % (19.3-51.7) % Monocytes % (4.7-12.5) % Eosinophils % (0.7-5.8) % Basophils % (0.1-1.2) % Absolute Granulocytes (1.56-6.13) x10^3/uL Basophils # (0.01-0.08) x10^3/uL D-Dimer (0.0-0.50) mg/L Puncture Site pCO2 (35-45) mmHg pO2 (75-100) mmHg Base Excess (-2.0-2.0) O2 Saturation (94-100) g/dF ABG pH (7.35-7.45) ABG HCO3 (22-28) ABG O2 Sat (Measured) (95-100) % Jose Test A-a Gradient a/A Ratio Hemoglobin Carboxyhemoglobin (0.0-6.9) % THgb Methemoglobin (1.4-1.5) % Potassium (3.5-5.1) Temperature C POC O2 Flow Rate % Sodium (135-145) mmol/L Chloride (98-107) mmol/L Carbon Dioxide (22-30) mmol/L Anion Gap (5-15) MEQ/L BUN (7-17) mg/dL Creatinine (0.52-1.04) mg/dL Estimated GFR ML/MIN Glucose (74-106) mg/dL Lactic Acid 1.6 (0.4-2.0) Calcium (8.4-10.2) mg/dL Magnesium (1.6-2.3) mg/dL Total Bilirubin (0.2-1.3) mg/dL AST (14-36) U/L ALT (0-35) U/L Alkaline Phosphatase (38-126) U/L Troponin I 1.020 H* 0.823 H* (0.000-0.033) ng/mL NT-Pro-B Natriuret Pep (<300) pg/mL Serum Total Protein (6.3-8.2) g/dL Albumin (3.5-5.0) g/dL Influenza Type A Ag (NEGATIVE) Influenza Type B Ag (NEGATIVE) RSV (PCR) (NEGATIVE) SARS-CoV-2 (PCR) (NEGATIVE) 06/09/25 06/09/25 06/09/25 Range/Units 10:40 10:40 10:40 WBC (3.98-10.04) x10^3/uL RBC (3.93-5.22) x10^6/uL Hgb (11.2-15.7) g/dL Hct (34.1-44.9) % MCV (79.4-94.8) fL MCH (25.6-32.2) pg MCHC (32.2-35.5) g/dL RDW (11.7-14.4) % Plt Count (182-369) x10^3/uL MPV (9.4-12.3) fL Gran % (34.0-71.1) % Immature Gran % (Auto) (0.001-0.429) % Nucleat RBC Rel Count (0.00-0.2) % Eos # (Auto) (0.04-0.36) x10^3/uL Immature Gran # (Auto) (0.001-0.031) x10^3u/L Absolute Lymphs (auto) (1.18-3.74) x10^3/uL Absolute Monos (auto) (0.24-0.86) x10^3/uL Absolute Nucleated RBC (0.00-0.012) x10^3u/L Lymphocytes % (19.3-51.7) % Monocytes % (4.7-12.5) % Eosinophils % (0.7-5.8) % Basophils % (0.1-1.2) % Absolute Granulocytes (1.56-6.13) x10^3/uL Basophils # (0.01-0.08) x10^3/uL D-Dimer < 0.19 (0.0-0.50) mg/L Puncture Site pCO2 (35-45) mmHg pO2 (75-100) mmHg Base Excess (-2.0-2.0) O2 Saturation (94-100) g/dF ABG pH (7.35-7.45) ABG HCO3 (22-28) ABG O2 Sat (Measured) (95-100) % Jose Test A-a Gradient a/A Ratio Hemoglobin Carboxyhemoglobin (0.0-6.9) % THgb Methemoglobin (1.4-1.5) % Potassium (3.5-5.1) Temperature C POC O2 Flow Rate % Sodium (135-145) mmol/L Chloride (98-107) mmol/L Carbon Dioxide (22-30) mmol/L Anion Gap (5-15) MEQ/L BUN (7-17) mg/dL Creatinine (0.52-1.04) mg/dL Estimated GFR ML/MIN Glucose (74-106) mg/dL Lactic Acid (0.4-2.0) Calcium (8.4-10.2) mg/dL Magnesium (1.6-2.3) mg/dL Total Bilirubin (0.2-1.3) mg/dL AST (14-36) U/L ALT (0-35) U/L Alkaline Phosphatase (38-126) U/L Troponin I 0.604 H* (0.000-0.033) ng/mL NT-Pro-B Natriuret Pep (<300) pg/mL Serum Total Protein (6.3-8.2) g/dL Albumin (3.5-5.0) g/dL Influenza Type A Ag NEGATIVE (NEGATIVE) Influenza Type B Ag NEGATIVE (NEGATIVE) RSV (PCR) NEGATIVE (NEGATIVE) SARS-CoV-2 (PCR) NEGATIVE (NEGATIVE) 06/09/25 06/09/25 06/09/25 Range/Units 10:40 10:40 10:20 WBC 7.0 (3.98-10.04) x10^3/uL RBC 4.79 (3.93-5.22) x10^6/uL Hgb 14.8 (11.2-15.7) g/dL Hct 47.0 H (34.1-44.9) % MCV 98.1 H (79.4-94.8) fL MCH 30.9 (25.6-32.2) pg MCHC 31.5 L (32.2-35.5) g/dL RDW 13.8 (11.7-14.4) % Plt Count 282 (182-369) x10^3/uL MPV 8.9 L (9.4-12.3) fL Gran % 71.2 H (34.0-71.1) % Immature Gran % (Auto) 0.3 (0.001-0.429) % Nucleat RBC Rel Count 0.0 (0.00-0.2) % Eos # (Auto) 0.06 (0.04-0.36) x10^3/uL Immature Gran # (Auto) 0.02 (0.001-0.031) x10^3u/L Absolute Lymphs (auto) 1.33 (1.18-3.74) x10^3/uL Absolute Monos (auto) 0.55 (0.24-0.86) x10^3/uL Absolute Nucleated RBC 0.00 (0.00-0.012) x10^3u/L Lymphocytes % 19.1 L (19.3-51.7) % Monocytes % 7.9 (4.7-12.5) % Eosinophils % 0.9 (0.7-5.8) % Basophils % 0.6 (0.1-1.2) % Absolute Granulocytes 4.96 (1.56-6.13) x10^3/uL Basophils # 0.04 (0.01-0.08) x10^3/uL D-Dimer (0.0-0.50) mg/L Puncture Site RIGHT BRACHIAL pCO2 61 H* (35-45) mmHg pO2 60 L (75-100) mmHg Base Excess 3.2 H (-2.0-2.0) O2 Saturation 88.3 L (94-100) g/dF ABG pH 7.32 L (7.35-7.45) ABG HCO3 31.4 H* (22-28) ABG O2 Sat (Measured) 90.7 L (95-100) % Jose Test NOT APPLICABLE A-a Gradient 63 a/A Ratio 0.49 Hemoglobin 16.3 Carboxyhemoglobin 2.0 (0.0-6.9) % THgb Methemoglobin 0.6 L (1.4-1.5) % Potassium 3.9 4.2 (3.5-5.1) Temperature 37.0 C POC O2 Flow Rate 28 % Sodium 138 (135-145) mmol/L Chloride 99 (98-107) mmol/L Carbon Dioxide 32 H (22-30) mmol/L Anion Gap 10.9 (5-15) MEQ/L BUN 16 (7-17) mg/dL Creatinine 0.72 (0.52-1.04) mg/dL Estimated GFR 92.7 ML/MIN Glucose 107 H (74-106) mg/dL Lactic Acid 3.5 H (0.4-2.0) Calcium 8.9 (8.4-10.2) mg/dL Magnesium 2.2 (1.6-2.3) mg/dL Total Bilirubin 0.80 (0.2-1.3) mg/dL AST 32 (14-36) U/L ALT 15 (0-35) U/L Alkaline Phosphatase 108 (38-126) U/L Troponin I (0.000-0.033) ng/mL NT-Pro-B Natriuret Pep 258 (<300) pg/mL Serum Total Protein 7.2 (6.3-8.2) g/dL Albumin 4.3 (3.5-5.0) g/dL Influenza Type A Ag (NEGATIVE) Influenza Type B Ag (NEGATIVE) RSV (PCR) (NEGATIVE) SARS-CoV-2 (PCR) (NEGATIVE) - Progress Progress: re-examined Air Movement: poor Progress Note: 06/09/25 10:07 My medical decision making and the assignment of moderate to high complexity of this patient's medical issue today is based on review of the patient's past medical history, reviewed patient's medication list, reviewed patient drug allergy list, history present illness and physical findings on examination. The workup in this patient includes respiratory therapy intervention with nebulizer treatment ABG, CBC, CMP, BNP, lactic acid level, magnesium level, viral swabs, twelve-lead EKG, troponin level. We will also order either a chest x-ray or CT scan of the chest with contrast depending on the value of the D-dimer level. Differential diagnosis includes was not limited to bacterial infiltrate, viral illness, CHF exacerbation, COPD exacerbation, myocardial infarction 06/09/25 10:13 I reexamined the patient on BiPAP. She is much more comfortable. Her blood pressure has now normalized with a systolic blood pressure of 113. Her oxygen saturation level is 98 to 99%. Her heart rate is in the low 80s. On the monitor it appears to be normal sinus rhythm. 06/09/25 10:34 I repeated and interpreted the second twelve-lead EKG on 06/09/2025 at 1028. The rate is 79 bpm it is normal sinus rhythm QTc is 458 although I am not appreciating an acute myocardial infarction, the computer read of the repeat twelve-lead EKG says that there may be anterior infarction acute. We will treat her as if there is an acute infarction. She continues not to have chest pain. 06/09/25 10:[address] Farhana Clark, deburring and tooling machine operator on-call at this time. He will be reviewing the 2 twelve-lead EKGs and provide recommendations. According to Dr. Shelby Clark, he states that this is more of an incomplete left bundle branch block. He states he would not call this an acute KS. 06/09/25 11:41 We are still waiting for the viral studies to be resulted. Based on the labs that have returned, the patient has an elevated troponin level. The remainder of the study results do not show anything acute or emergent. I had the deburring and tooling machine operator Dr. Clark evaluate the 1st and 2nd twelve-lead EKGs and he is calling this a left bundle branch block without acute ischemia. I did go ahead and proceed with aspirin and heparin dose. The troponin level is elevated. The patient has no chest pain. I will obtain a third twelve-lead EKG and I think this patient would be best served at a facility where they have in house cardiology. Clinically, she feels much improved. 06/09/25 12:02 I spoke with deburring and tooling machine operator, Dr. Dasilva, out of [facility]. I had him evaluate all 3 twelve-lead EKGs that I interpreted. I interpreted the third twelve-lead EKG that was performed on 06/08/2025 at 11:43 AM. Heart rate 76 bpm. Pattern normal sinus rhythm. There is now evidence of prolonged QT interval. QTc is 501 and there is no evidence of acute ischemia on my interpretation. Dr. Dasilva evaluated all 3 twelve-lead EKGs. He states there is no evidence of a STEMI or acute ischemia. The patient continues to have no chest pain. He wants a repeat troponin level. This will determine if the patient stays in our facility or is transferred out. 06/09/25 12:08 The final chest x-ray report was interpreted by the radiologist and I reviewed the impression. The impression states COPD present with right lung calcified granuloma. Bony thorax shows osteopenia and old left fourth rib fracture. No cardiomegaly. No new or acute findings. 06/09/25 16:[address] Dasilva on his cell phone number at [phone]. He did not answer I did leave a message and informed him of the rising troponin levels and asked him to call us back. 06/09/25 16:50 Dr. Dasilva called back approximately [phone]. I reviewed the repeat labs, specifically troponin level, with him. He will consult on this case at [facility]. The hospitalist is to contact us back for acceptance of this patient in transfer. 06/09/25 17:[address] Galdamez, the hospitalist at [facility]. I provided him with history of present illness, presenting complaint, past medical history and physical findings as well as the workup results. I also provided him the information regarding the conversation i had with deburring and tooling machine operator Dr. Dasilva. He accepts the patient in transfer. Blood Culture(s) Obtained: Yes Antibiotics given: No Counseled pt/family regarding: lab results, diagnosis, rad results Medical Desision Making - Independent Historian Additional History obtained from: Family - Discussion of managment Care discussed with:: hospitalist (In addition I spoke with deburring and tooling machine operator Dr. Dasilva the specialist) Reviewed:: Test results, Need for additional workup - Diagnostic Testing Diagnostic test were ordered, analyzed, and reviewed by me: Yes Radiological Interpretation: Reviewed by me, Teleradiologist Report - Risk of complications The pt has a high risk of morbidity or mortality based on: Decision regarding hospitilization or escalation of hosp level of care - Departure Departure Disposition: Transfer Clinical Impression: NSTEMI (non-ST elevated myocardial infarction), Hypoxia, COPD exacerbation Condition: Fair Critical Care Time: Yes Critical Care Time(excluding separately billable procedures): Critical 30-74 mins (65) Referrals: DISHA MACKEY JR [Primary Care Provider, ORTHOPEDICS] - Follow up/PCP as directed Instructions: Chronic Obstructive Pulmonary Disease
[2025-06-09 10:02] VITALS: TEMP 98.3
[2025-06-09] MEDS ORDERED: DUONEB 0.5-3 MG/3 ml Neb IH ONE (10:08)
[2025-06-09] MEDS: DUONEB 0.5-3 MG/3 ml Neb IH ONE (10:23)
[2025-06-09 10:38] LABS: A-aADO2 63; ABG HEMOGLOBIN 16.3; ABG POTASSIUM 4.2 (3.5-5.1); ARTERIAL BLD GAS O2 SATURATION 90.7 % (95-100); ARTERIAL BLOOD GAS BASE EXCESS 3.2 (-2.0-2.0); ARTERIAL BLOOD GAS FIO2 28 %; ARTERIAL BLOOD GAS PO2 60 mmHg (75-100); ARTERIAL BLOOD GAS TEMPERATURE 37.0 C; HCO3- 31.4 (22-28); HGB O2 SAT 88.3 g/dF (94-100); Methhemoglobin 0.6 % (1.4-1.5); paO2 pAO1 0.49
[2025-06-09 10:39] LABS: ARTERIAL BLOOD GAS PCO2 61 mmHg (35-45)
[2025-06-09 10:40] LABS: ABG SITE RIGHT BRACHIAL
[2025-06-09] MEDS ORDERED: BABY ASPIRIN 81 MG CHEW ONE (10:41)
[2025-06-09] MEDS: BABY ASPIRIN 81 MG CHEW PO ONE (10:42)
[2025-06-09] MEDS: HEPARIN 5000 UNITS/0.5 ML (HIGH RISK MED) IV ONE (10:42)
[2025-06-09] MEDS ORDERED: HEPARIN 5000 UNITS/0.5 ML (HIGH RISK MED) ONE (10:42)
[2025-06-09 10:56] LABS: BASOPHIL % 0.6 % (0.1-1.2); Basophil (Absolute #) 0.04 x10^3/uL (0.01-0.08); Eosinophil (Absolute #) 0.06 x10^3/uL (0.04-0.36); Hematocrit 47.0 % (34.1-44.9); Hemoglobin 14.8 g/dL (11.2-15.7); IMMATURE GRAN # 0.02 x10^3u/L (0.001-0.031); IMMATURE GRAN % 0.3 % (0.001-0.429); Lymphocyte (Absolute #) 1.33 x10^3/uL (1.18-3.74); Mean Corpuscular Hemoglobin 30.9 pg (25.6-32.2); Mean Corpuscular Hgb Concent. 31.5 g/dL (32.2-35.5); Monocyte (Absolute #) 0.55 x10^3/uL (0.24-0.86); NUCLEATED RBC # 0.00 x10^3u/L (0.00-0.012); NUCLEATED RBC % 0.0 % (0.00-0.2); Platelet Count 282 x10^3/uL (182-369); Red Blood Count 4.79 x10^6/uL (3.93-5.22); White Blood Count 7.0 x10^3/uL (3.98-10.04)
[2025-06-09 11:18] LABS: Calcium 8.9 mg/dL (8.4-10.2); Carbon Dioxide 32.0 mmol/L (22-30); Creatinine 1 0.72 mg/dL (0.52-1.04); EST GLOMERULAR FILTRATION RATE 92.7 ML/MIN; Glucose 107.0 mg/dL (74-106); NT PRO BNPII 258.0 pg/mL (<300); Potassium 3.9 mmol/L (3.5-5.1); SGOT/AST 32.0 U/L (14-36); SGPT/ALT 15.0 U/L (0-35); Total Protein 7.2 g/dL (6.3-8.2)
[2025-06-09 11:27] LABS: INFLUENZA A NEGATIVE (NEGATIVE); INFLUENZA B NEGATIVE (NEGATIVE); RESPIRATORY SYNCTIAL VIRUS NEGATIVE (NEGATIVE); SARS-CoV-2 Xpert Express NEGATIVE (NEGATIVE)
--- NOTE | 2025-06-09 12:03 | XRAY ---
Indication: Short of breath. Comparison: May 11, 2025 Portable chest again demonstrates COPD and tiny right lung calcified granuloma. No focal infiltrate, consolidation, or large effusion. Heart not enlarged. Bony thorax intact again with osteopenia and old left 4 rib fracture. No new/acute findings.
[2025-06-09 19:04] VITALS: BP 130/76; PULSE 75; RESP 20; O2SAT 98
== END 2025-06-09 19:48 | disposition short-term general hospital (02) ==
LOC: ED 09:46
DX: I21.4 Non-ST elevation (NSTEMI) myocardial infarction (principal); R09.02 Hypoxemia; J44.1 Chronic obstructive pulmonary disease with (acute) exacerbation; R05.1 Acute cough; Z79.899 Other long term (current) drug therapy; Z72.0 Tobacco use